=== PATIENT | male | born 1955 | race Caucasian/White ===

== ENCOUNTER 2023-08-02 23:58 | Inpatient (IN) | payer MEDICARE, SELFPAY ==
[2023-08-02 23:59] VITALS: BP 142/82; PULSE 94; RESP 18; TEMP 36.3; O2SAT 97; BMI 32.5
[2023-08-03] VITALS (16 sets, daily range): BP systolic 120–161; BP diastolic 62–94; PULSE 55–102; RESP 14–18; TEMP 36.1–37.3; O2SAT 89–96; BMI 32.1; BMI 32.0
--- NOTE | 2023-08-03 00:07 | CT_ITS ---
INDICATION: fall, head trauma EXAMINATION: CT BRAIN - CT Head or Brain W/O Contrast Injection TECHNIQUE: Multiple axial images were obtained of the head without intravenous contrast. A radiation dose optimization technique was used for this scan. IV Contrast dosage and agent: None. RADIATION DOSAGE (If Supplied By Facility): CTDIvol = ( 44.99 ) mGy, DLP = ( 846.73 ) mGycm COMPARISON: No relevant prior comparison study available FINDINGS: BRAIN PARENCHYMA: No intra- or extra-axial hemorrhage. No evidence of acute infarct. No intracranial mass or mass effect. There is preservation of the floyd/white matter interface. Posterior fossa structures are unremarkable. Patchy periventricular and deep white matter hypoattenuation is consistent with mild small vessel ischemic change. CSF SPACES: Proportional prominence of the ventricles and sulcal spaces is consistent with mild cerebral volume loss. No hydrocephalus. Basal cisterns are patent. CALVARIUM, SKULL BASE, PARANASAL SINUSES AND MASTOID AIR CELLS: Small mucous retention cysts in both maxillary sinuses. The mastoid air cells and visualized paranasal sinuses are otherwise well aerated. The calvarium is intact. No discrete lytic or blastic abnormalities. ORBITS: Both globes, extraocular muscles, optic nerves and retrobulbar fat appear unremarkable. CT/Brain/Head without Contrast IMPRESSION: No acute intracranial finding. Electronically Signed: Manoj Dominguez MD at 1:23 EST ,
--- NOTE | 2023-08-03 00:07 | CT_ITS ---
INDICATION: lower back pain after fall EXAMINATION: CT LUMBAR SPINE - CT Spine Lumbar W/O Contrast Injection TECHNIQUE: Helically acquired images were obtained of the lumbar spine. 2D reformats were reviewed. A radiation dose optimization technique was used for this scan. IV Contrast dosage and agent: None. RADIATION DOSAGE (If Supplied By Facility): CTDIvol = ( 43.08 ) mGy, DLP = ( 1273.15 ) mGycm COMPARISON: No relevant prior comparison study available FINDINGS: VERTEBRAE: No fracture or traumatic subluxation. No discrete lytic or blastic abnormality observed. Normal alignment. DISCS and SPINAL CANAL: Diffuse disc space narrowing with vacuum disc phenomenon throughout the lumbar spine. Mild facet arthropathy. Multilevel disc bulges. Moderate spinal canal narrowing of the L3-L4 level most prominently. VISUALIZED ABDOMEN: Visualized abdominal aorta is not dilated. Retroaortic left renal vein noted. There is no retroperitoneal adenopathy. CT/Spine Lumbar without Contrast IMPRESSION: No evidence of acute lumbar spinal fracture or spondylolisthesis. Mild to moderate degenerative change throughout the lumbar spine. Electronically Signed: Manoj Dominguez MD at 1:21 EST Reading Location ID and State: [address] [place] [address] Tel , Service support ,
--- NOTE | 2023-08-03 00:07 | CT_ITS ---
INDICATION: fall, neck pain EXAMINATION: CT CERVICAL SPINE - CT Spine Cervical W/O Contrast Injection TECHNIQUE: Helically acquired images were obtained of the cervical spine. 2D reformatted images were reviewed. A radiation dose optimization technique was used for this scan. IV Contrast dosage and agent: None. RADIATION DOSAGE (If Supplied By Facility): CTDIvol = ( 24.01 ) mGy, DLP = ( 508.22 ) mGycm COMPARISON: No relevant prior comparison study available FINDINGS: VERTEBRAE: No fracture or traumatic subluxation. No discrete lytic or blastic abnormality. Normal alignment. Normal craniocervical junction and cervicothoracic junction. DISCS and SPINAL CANAL: There is multilevel disc space narrowing with endplate osteophyte formation and facet arthropathy. No critical stenosis. NECK SOFT TISSUES: No prevertebral soft tissue swelling. There is no cervical adenopathy. LUNG APICES: Clear. CT/Spine Cervical without Contras IMPRESSION: No evidence of acute cervical spinal fracture or spondylolisthesis. Mild to moderate degenerative change throughout the cervical spine. Electronically Signed: Manoj Dominguez MD at 1:27 EST Reading Location ID and State: [address] [place] [address] Tel , Service support ,
--- NOTE | 2023-08-03 00:09 | EDS_ITS ---
HPI HPI - Fall History of Present Illness Chief Complaint: Fall [facility] Medical History (Updated 08/03/23 @ 00:08 by Jes Soriano) Hypertension Home Medications lisinopril 10 mg-hydrochlorothiazide 12.5 mg tablet 1 tab PO DAILY 08/03/23 [History Last Taken Unknown] Allergy/AdvReac Type Severity Reaction Status Date / Time No Known Allergies Allergy Verified 08/03/23 00:09 Social History Smoking Status: Current every day smoker tobacco type: cigarettes EXAM Physical Exam Const Vital Signs: 08/02/23 23:59 08/03/23 00:03 Temperature 97.4 F L Temperature Source Temporal Pulse Rate 94 Respiratory Rate 18 Respiratory Effort Normal Blood Pressure 142/82 H Blood Pressure Mean 102 Pulse Ox 97 Oxygen Delivery Method Room Air Room Air MDM MDM MDM Narrative Medical decision making narrative: HISTORY OF PRESENT ILLNESS: 68-year-old male presents with mechanical fall from standing. Patient notes he was walking downstairs to him to grab a ledge when he slipped and fell injuring his left hip and hitting his head. Did not lose consciousness. He does not take blood thinners. Complains of severe left hip pain. REVIEW OF SYSTEMS: Pertinent positives: Wound, left hip pain, left knee pain Pertinent negatives: Loss of consciousness, chest pain or shortness of breath PHYSICAL EXAM: Nursing triage notes reviewed, Vital signs reviewed Primary Survey Airway: Intact Breathing: Bilateral breath sounds Circulation: Palpable bilateral femorals, Palpable bilateral radial, Palpable bilateral DP and Palpable bilateral PT Disability / Spine precautions GCS Score: Eye Openin Verbal Response: 5 Motor Response: 6 Secondary Survey Constitutional: Please see MDM Head: Abrasion/laceration noted to the left eyebrow, NO jaw malocclusion, No Cephalohematoma, Eye: Pupils equal round and reactive to light, Extraocular muscles intact and No periorbital ecchymosis or stepoff, no evidence of entrapment ENT: Oropharynx clear, no lacerations, no hemotympanum, no raccoon eyes or starkey sign Cervical spine / Neck: No cervical spine bony tenderness, crepitance, or stepoff deformity Trachea midline Lungs: Clear to auscultation, No asymmetric rise and No crepitus, no flail chest Cardiac: Regular rate and rhythm and No murmurs, intact pulses in all 4 extremities. Abdomen: Soft, Nontender and No rebound Pelvis: Pelvis stable to compression : No evidence of genital injury Back: TTP over lower lumbar spine no step-offs or deformities to the CT or L- spine Neuro: At baseline, intact strength and sensation in bilateral upper and lower extremities. 2+ patellar reflexes bilaterally. Intact sensation L1-S1 dermatomal distributions. Intact 5/5 strength in hip flexion (T12-L3). Knee extension (L2-L4). Ankle dorsiflexion (L4-L5). Ankle plantar flexion (S1). Great toe extension (L5). 2+ patellar and Achilles DTRs. Extremities: TTP over the left greater trochanter, left lower extremity shortened externally rotated, left knee TTP. Psych: Normal affect Nursing triage notes reviewed, Vital signs reviewed MEDICAL DECISION MAKING: Chief Complaint: Fall, head trauma, left hip pain External records reviewed: No recent ED visits, no recent Afng imaging of the head Factors affecting care: Hypertension Social determinants of health: Current daily smoker History obtained from others: EMS Consults: Internal medicine, orthopedic surgery MDM Narrative: Patient was initially hemodynamically stable, afebrile and nontoxic-appearing. Primary secondary trauma survey concerning for intracranial normalities, lumbar spine abnormalities, left hip abnormality I considered the following differential diagnosis: Intracranial hemorrhage, cervical spine bony abnormality, breast pump normality, fractured hip, fractured femur, fracture knee IV is placed. Tetanus updated. Fluid bolus given. Morphine given for pain Zofran given for anticipated nausea. Basic labs obtained. Imaging obtained of the injured areas. ALL IMAGES (IF OBTAINED) HAVE BEEN PERSONALLY REVIEWED AND INTERPRETED BY MYSELF. X-ray of the patient's pelvis, chest and femur personally viewed myself. There is no signs of intrathoracic abnormalities on chest x-ray, pelvic x-ray/hip x- ray was consistent with a left femoral neck fracture. Urologist agreed my interpretation CT scan of the brain, cervical spine lumbar spine were negative for acute traumatic injury BMP with mild hypokalemia, ARCHANA versus CKD CBC with no leukocytosis or anemia or thrombocytopenia The synthesis of the patient's history, physical, vital signs, labs, images suggest the left more neck fracture. He was given appropriate pain control IV narcotics. I did speak with the orthopedic doctor on-call Dr. Robbins to evaluate the patient as an inpatient. Also spoke to the internal medicine doctor Dr. Guzman who agreed to admit the patient. Terms of patient's facial injury. There is no obvious laceration noted there is an abrasion and bruising to the left lateral orbit. Steri-Strips were placed over small area of abrasion the patient's left orbit. There is no ocular involvement noted. No entrapment. The patient and/or family, caregivers express understanding. The patient and/or family, caregivers agrees with the plan. Shared decision making: I will have a discussion with the patient and or visitors regarding risk/benefits of further testing or admission. They will be made aware of of the risk/benefits inherent in this decision they will be given the opportunity to voice understanding. Total critical care time today provided was at least 0 [] minutes. This excludes separately billable procedures. Critical care time (if documented) is secondary to the patient having high probability of clinically significant/life threatening deterioration in the patient's condition which required my urgent intervention. Impression: 1. Fall 2. Left femoral neck fracture 3. Closed head injury 4. Hypokalemia 5. Acute kidney injury Dispo: Admit to inpatient, [facility] full Lab Data Labs: Laboratory Results - last 24 hr 08/03/23 00:22 WBC 9.1 RBC 4.80 Hgb 14.4 Hct 43.0 MCV 89.6 MCH 30.0 MCHC 33.5 RDW Std Deviation 45.0 H RDW Coeff of Cheryl 13.8 Plt Count 183 MPV 10.0 Sodium 136 Potassium 3.3 L Chloride 105 Carbon Dioxide 22.0 Anion Gap 9 BUN 28 H Creatinine 1.95 H Estim Creat Clear Calc 37.44 Est GFR (MDRD) Af Amer 44 L Est GFR (MDRD) Non-Af 37 L BUN/Creatinine Ratio 14.4 Glucose 137 H Calcium 9.5 Radiography Diagnostic Testing: Clinical Impression(s) from Imaging Studies Brain CT 08/03/23 00:07 IMPRESSION: No acute intracranial finding. Electronically Signed: Manoj Dominguez MD at 1:23 EST , Cervical Spine CT 08/03/23 00:07 IMPRESSION: No evidence of acute cervical spinal fracture or spondylolisthesis. Mild to moderate degenerative change throughout the cervical spine. Electronically Signed: Manoj Dominguez MD at 1:27 EST , Lumbar Spine CT 08/03/23 00:07 IMPRESSION: No evidence of acute lumbar spinal fracture or spondylolisthesis. Mild to moderate degenerative change throughout the lumbar spine. Electronically Signed: Manoj Dominguez MD at 1:21 EST , Chest X-Ray 08/03/23 01:00 IMPRESSION: No acute pulmonary finding. Electronically Signed: Manoj Dominguez MD at 1:27 EST , Femur X-Ray 08/03/23 01:00 IMPRESSION: Left femoral neck fracture with varus angulation. Electronically Signed: Manoj Dominguez MD at 1:29 EST , Pelvis X-Ray 08/03/23 01:00 IMPRESSION: Left femoral neck fracture. Electronically Signed: Manoj Dominguez MD at 1:33 EST , Discharge Plan Triage Chief Complaint: Fall ED Provider: Tyrell Beltran Dx/Rx/DC Orders Prescriptions: No Action lisinopril-hydrochlorothiazide 10-12.5 mg tablet 1 tab PO DAILY Patient Comments: Take 2 tablets by mouth every morning. Primary Care Provider: Care Physician,No Primary Referrals: Care Physician,No Primary [Primary Care Provider] -
[2023-08-03] MEDS: 0.9% Normal Saline (1000mL) 1,000 ML 999 ML IV (00:24)
[2023-08-03] MEDS: Lidocaine 1% (20 ml mdv) 20 ML Vial 5 ML INFILT (00:25)
[2023-08-03] MEDS: Diphth,Pertuss(Acell),Tet Vac 0.5 ML Vial IM (00:26)
[2023-08-03] MEDS: Ondansetron 4 MG/2 ML Vial IV (00:26)
[2023-08-03] MEDS: Morphine 4 MG/ML Syringe IV (00:26)
[2023-08-03 00:32] LABS: Hemoglobin 14.4 g/dL (13.0-16.5); Mean Corp Hgb Conc 33.5 g/dL (32-36); Mean Corpuscular Volume 89.6 fL (80-94); Platelet Count 183 K/mm3 (150-450); RBC Distribution Width CV 13.8 % (11.6-14.6); White Blood Count 9.1 K/mm3 (4.4-11.0)
[2023-08-03 00:58] LABS: Anion Gap 9 (5-15); BUN 28 mg/dL (7-18); BUN/Creat Ratio 14.4 RATIO (10-20); Calcium,Total 9.5 mg/dL (8.5-10.1); Chloride 105 mmol/L (98-107); Creatinine, Serum 1.95 mg/dL (0.70-1.30); EST Glomerular Filtration Rate 37 mL/min (>60); Est Glom Filt Rate - Afr Amer 44 mL/min (>60); Estimated Creatinine Clearance 37.44 ml/min; Glucose 137 mg/dL (74-106); Potassium 3.3 mmol/L (3.5-5.1); Sodium Level 136 mmol/L (136-145)
--- NOTE | 2023-08-03 01:00 | RAD_ITS ---
INDICATION: left hip pain EXAMINATION/TECHNIQUE: X-RAY - XR Pelvis 1 or 2 Views COMPARISON: No relevant prior comparison study available FINDINGS: Left femoral neck fracture with varus angulation. The hips remain well aligned. The pelvic rim is intact. The sacroiliac joints and pubic symphysis are intact. Normal bowel gas pattern. RAD/Pelvis 1 or 2 Views IMPRESSION: Left femoral neck fracture. Electronically Signed: Manoj Dominguez MD at 1:33 EST ,
--- NOTE | 2023-08-03 01:00 | RAD_ITS ---
INDICATION: hip pain EXAMINATION/TECHNIQUE: X-RAY - LEFT XR Femur Min 2 Views 6 images COMPARISON: No relevant prior comparison study available FINDINGS: There is a left femoral neck fracture with mild varus angulation. The remainder of the femur is intact. The hip remains aligned. Appropriate alignment of the left knee. No joint effusion at the knee. Enthesophyte formation of the patella. RAD/Femur Min 2 Views IMPRESSION: Left femoral neck fracture with varus angulation. Electronically Signed: Manoj Dominguez MD at 1:29 EST ,
--- NOTE | 2023-08-03 01:00 | RAD_ITS ---
INDICATION: pre0op EXAMINATION/TECHNIQUE: X-RAY - XR Chest 1 View COMPARISON: No relevant prior comparison study available FINDINGS: LINES/DEVICES: None. LUNGS: The lungs are well expanded. No consolidation, edema or effusion. No pneumothorax. MEDIASTINUM AND CARDIOVASCULAR STRUCTURES: Cardiac silhouette not enlarged. Central airways and mediastinal contour are unremarkable. BONES AND SOFT TISSUES: No acute abnormality. RAD/Chest 1 View (Portable) IMPRESSION: No acute pulmonary finding. Electronically Signed: Manoj Dominguez MD at 1:27 EST ,
--- NOTE | 2023-08-03 02:20 | PCM.HP.STD ---
[facility] - General General Date of Admission: 08/03/23 Date of Service: 08/03/23 Chief Complaint: Left hip pain after fall. HPI Narrative LEESA CHONG, is a 68 M with a past medical history of essential hypertension, obesity; with BMI of 32.6 this admission, recent cataract surgery last week on his Left eye and history of tobacco abuse who presents to [facility] ER complaining of left hip pain after fall. Mr. Chong reports his symptoms began approximately 1 hour prior to arrival while he was walking downstairs when he suddenly lost his balance causing him to slip and fall onto his left hip. His left hip immediately became severely painful, with a shortened and externally rotated left leg with subsequent inability to ambulate. He also admits to hitting his head with significant lateral, periorbital bruising but he denies loss of consciousness associated with this fall. He denies associated fever, chills, nausea, vomiting, recent illness, recent medication changes, history of significant heart disease or previous problems with anesthesia. In the ER his x-rays were positive for evidence of a left femoral neck fracture with varus angulation complicated by laboratory evidence of hypokalemia of 3.3 mmol/L present on admission and suspected acute kidney injury with a creatinine of 1.95 mg/dL and a BUN of 28 mg/dL present on admission (with no baseline available for comparison at this time) and he was then admitted to the general medical floor for ongoing care for stay that is expected to be greater than 48 hours. [facility] Medical History Hypertension Home Medications lisinopril 10 mg-hydrochlorothiazide 12.5 mg tablet 1 tab PO DAILY htn 08/03/23 [History Last Taken Unknown] Allergy/AdvReac Type Severity Reaction Status Date / Time No Known Allergies Allergy Verified 08/03/23 00:09 Social History Smoking Status: Current every day smoker tobacco type: cigarettes ROS ROS Narrative Review of systems: Constitutional: Patient denies fever or chills. Eyes: Patient admits to bruising around his lateral left orbit but denies visual changes. ENT: Patient denies runny nose, ear pain or sore throat. Cardiovascular: Patient denies chest pain, chest pressure or palpitations. Respiratory: Patient denies shortness of breath or cough. Gastrointestinal: Patient denies abdominal pain nausea or vomiting. Genitourinary patient denies dysuria, hematuria or urinary frequency. Neurologic: Patient denies headache, dizziness or focal neurologic deficits. Allergic: Patient denies lip swelling, tongue swelling or urticaria. Integumentary: Patient denies abscess, abrasion or rash. Hematologic: Patient denies easy bleeding or easy bruisability. Psychiatric: Patient denies depression or anxiety. 14 point review systems otherwise negative except for positives noted above in HPI. Vital Signs Vital Signs Vital Signs: 08/02/23 23:59 08/03/23 00:03 Temperature 97.4 F L Temperature Source Temporal Pulse Rate 94 Respiratory Rate 18 Respiratory Effort Normal Blood Pressure 142/82 H Blood Pressure Mean 102 Pulse Ox 97 Oxygen Delivery Method Room Air Room Air Weight Weight: 226 lb 13.69 oz Body Mass Index (BMI) 32.5 Physical Exam Const alert, oriented x3, average body habitus and healthy appearing Constitutional Narrative: Mild distress noted. General Appearance: cooperative HEENT normocephalic, head/scalp atraumatic, hearing grossly normal bilaterally and moist oral mucous membranes Eyes PERRL, EOMs intact bilaterally and conjunctivae normal Neck no lymphadenopathy, supple and no JVD Resp normal respiratory effort, no retractions, no use of accessory muscles and clear to auscultation bilaterally Cardio regular rate and regular rhythm GI normal to inspection, nondistended, normoactive bowel sounds, soft to palpation, non-tender and non-distended Extremity Extremity Narrative: Left lower extremity shortened externally rotated with no signs of neurovascular compromise. Good 2+ pulses throughout. Good capillary refill. Skin Skin Narrative: Patient has no evidence of rash at this time. Neuro oriented x3, CN's II-XII intact bilaterally, moves all extremities and no focal motor deficits Sensorium / Orientation: awake, oriented to person, oriented to place and oriented to time Speech: speech normal Psych affect normal Results Medical Records Data Attestation: I reviewed the patient's medical records Lab / Micro Data Attestation: I reviewed the patient's lab results. 08/03/23 00:22 08/03/23 00:22 Labs: Laboratory Results - last 24 hr 08/03/23 00:22: WBC 9.1, RBC 4.80, Hgb 14.4, Hct 43.0, MCV 89.6, MCH 30.0, MCHC 33.5, RDW Std Deviation 45.0 H, RDW Coeff of Cheryl 13.8, Plt Count 183, MPV 10.0, Sodium 136, Potassium 3.3 L, Chloride 105, Carbon Dioxide 22.0, Anion Gap 9, BUN 28 H, Creatinine 1.95 H, Estim Creat Clear Calc 37.44, Est GFR (MDRD) Af Amer 44 L, Est GFR (MDRD) Non-Af 37 L, BUN/Creatinine Ratio 14.4, Glucose 137 H, Calcium 9.5 Imagaing Radiology Impression Brain CT 08/03/23 00:07 IMPRESSION: No acute intracranial finding. Electronically Signed: Manoj Dominguez MD at 1:23 EST , Cervical Spine CT 08/03/23 00:07 IMPRESSION: No evidence of acute cervical spinal fracture or spondylolisthesis. Mild to moderate degenerative change throughout the cervical spine. Electronically Signed: Manoj Dominguez MD at 1:27 EST , Lumbar Spine CT 08/03/23 00:07 IMPRESSION: No evidence of acute lumbar spinal fracture or spondylolisthesis. Mild to moderate degenerative change throughout the lumbar spine. Electronically Signed: Manoj Dominguez MD at 1:21 EST , Chest X-Ray 08/03/23 01:00 IMPRESSION: No acute pulmonary finding. Electronically Signed: Manoj Dominguez MD at 1:27 EST , Femur X-Ray 08/03/23 01:00 IMPRESSION: Left femoral neck fracture with varus angulation. Electronically Signed: Manoj Dominguez MD at 1:29 EST , Pelvis X-Ray 08/03/23 01:00 IMPRESSION: Left femoral neck fracture. Electronically Signed: Manoj Dominguez MD at 1:33 EST , Assessment & Plan Assessment/Plan (1) Fracture of femoral neck, left: QUALIFIERS: Encounter type: initial encounter Fracture type: closed Qualified Code(s): S72.002A - Fracture of unspecified part of neck of left femur, initial encounter for closed fracture (2) Hypokalemia: (3) Essential hypertension: (4) ARCHANA (acute kidney injury): (5) Obesity (BMI 30.0-34.9): PLAN: Plan 1. Left femoral neck fracture after mechanical fall - Admit to general medical floor. Apply 5 pounds of Messina's traction with patient to be on bedrest until ORIF can be completed. Give Tylenol as needed for mild to moderate level 1-5 out of 10 pain or fever. Give morphine IV as needed for severe 6-10 out of 10 pain. Finally, we will consult the orthopedic surgeon on-call to see this patient on rounds in the a.m. for further recommendations with help appreciated in advance. 2. Hypokalemia of 3.3 mmol/L present on admission complicating #1 - Give supplemental potassium chloride and then recheck BMP in the a.m. to ensure improvement. 3. Suspected acute kidney injury with elevated serum creatinine of 1.95 mg/dL and BUN of 28 mg/dL present on admission compounding #1 & #2 - Give volume resuscitation and recheck BMP in the a.m. to confirm suspicion 4. Essential hypertension - Hold lisinopril/HCTZ for now in light of #3. Give IV hydralazine as needed for systolic blood pressure greater than or equal to 160 mmHg. 5. Tobacco abuse - Tobacco cessation will be strongly encouraged with nicotine patch offered to control cravings. 6. Obesity; with BMI of 32.6 this admission - Weight loss will be recommended. Check TSH. 7. Recent surgery remove cataract from left eye last week - Stable. 8. DVT prophylaxis - Place RLE SCD and avoid blood thinners preoperatively in cases of traumatic fracture due to increased risk of bleeding complications. Orthopedic team to decide upon postoperative DVT prophylaxis. Total time: Approximately 55 minutes. Charges/Coding Visit Charges Inpatient E&M: 35831 Init Hosp L2
[2023-08-03] MEDS: HYDROmorphone 0.5 MG/0.5 ML SYRINGE IV (02:24)
--- NOTE | 2023-08-03 02:49 | EKG12_ITS ---
Test Reason : AM EKG Blood Pressure : / mmHG Vent. Rate : 091 BPM Atrial Rate : 091 BPM P-R Int : 144 ms QRS Dur : 090 ms QT Int : 354 ms P-R-T Axes : 043 048 075 degrees QTc Int : 435 ms Normal sinus rhythm Normal ECG When compared with ECG of 08-SEP-2010 13:40, Vent. rate has increased BY 30 BPM T wave amplitude has decreased in Anterolateral leads Confirmed by RAUL RIVAS, SHELBI ([id number]), international editorial producer RAYA NORIEGA ([id number]) on 08/15/2023 10:11:26 AM Referred By: Adis Zazueta Confirmed By:SHELBI CARTER MD
--- OUTSIDE RECORDS SUMMARY | 2023-08-03 02:51 | XMS RPT_ITS | CCD ---
Author Name Unknown Address [address] [facility] [address] [place] [address] Organization [facility] Care Team Providers Care Airfield Engineer Officer Name Role Phone Unavailable Primary Care Provider UnavailShahana Murphy MD Primary Care Provider HOLLIE GALINDO Attending Unavailable SHAHANA BARBER Primary Care Unavailable HOLLIE GALINDO Attending Unavailable HOLLIE GALINDO Attending Unavailable Medications Current Medications Medication Drug Class(es) Dates Sig (Normalized) Sig (Original) hydroCHLOROthiazide 25 mg oral tablet (1 source) Thiazide Diuretic Start: 3 End: 4 take 1 tablet by mouth once daily hydroCHLOROthiazide 25 mg tablet Take 1 tablet by mouth once daily. 30 tablet 2 06/05/2023 09/03/2023 Active Completed/Discontinued Medications Medication Drug Class(es) Dates Sig (Normalized) Sig (Original) Blood Pressure Monitor (7 sources) Start: 05-03-2023 Blood Pressure Monitor Indications: Hypertension, essential 1 Each once daily. 1 Each 0 05/03/2023 Active Problems Problem Classification Problem Date Documented Da te Episodic/Chronic Cataract (1 source) Bilateral cataracts; Translations: [Unspecified cataract] 06-05-2023 Chronic Disorders of lipid metabolism (2 sources) Hypertriglyceridemia; Translations: [Pure hyperglyceridemia] 05-08-2023 Chronic Essential hypertension (5 sources) Essential hypertension; Translations: [Essential (primary) hypertension] 05-03-2023 Chronic Other screening for suspected conditions (not mental disorders or infectious disease) (3 sources) Serum creatinine raised; Translations: [Other specified abnormal findings of blood chemistry] 05-08-2023 Episodic Results Test Name Value Interpretation Reference Range Facil ity Vital Signs Date Time Vital Sign Value Performing Clinician Faci lity 06-05-2023 14:56-0400 Body height 177.8 cm Hollie Ralf SHIRT SORTER.CN P Work Phone: [facility] 06-05-2023 14:56-0400 Body weight 102.51 kg Hollie Ralf SHIRT SORTER.CN P Work Phone: [facility] 06-05-2023 14:56-0400 Diastolic blood pressure 80 mm[Hg] Hollie Ralf SHIRT SORTER.INSPECTOR CHIEF Work Phone: [facility] 06-05-2023 14:56-0400 Heart rate 94 /min Hollie Ralf SHIRT SORTER.CN P Work Phone: [facility] 06-05-2023 14:56-0400 Systolic blood pressure 123 mm[Hg] Hollie Ralf SHIRT SORTER.INSPECTOR CHIEF Work Phone: [facility] 05-08-2023 14:33-0400 Diastolic blood pressure 100 mm[Hg] Hollie Ralf SHIRT SORTER.INSPECTOR CHIEF Work Phone: [facility] 05-08-2023 14:33-0400 Systolic blood pressure 146 mm[Hg] Hollie Ralf SHIRT SORTER.INSPECTOR CHIEF Work Phone: [facility] 05-08-2023 14:21-0400 Body height 177.8 cm Hollie Ralf SHIRT SORTER.CN P Work Phone: [facility] 05-08-2023 14:21-0400 Body weight 102.51 kg Hollie Ralf SHIRT SORTER.CN P Work Phone: [facility] 05-08-2023 14:21-0400 Heart rate 76 /min Hollie Ralf SHIRT SORTER.CN P Work Phone: [facility] Encounters Encounter Date Encounter Type Care Provider Facility Start: 07-04-2023 Telephone encounter Shahana Barber MD Work Phone: Family Practice Procedures Date Procedure Procedure Detail Performing Clinician Start: 05-01-2023 Lipid 1996 panel - S stacia or Plasma Hollie Ralf SHIRT SORTER.INSPECTOR CHIEF Work Phone: Plan of Treatment Date Care Activity Detail Author Start: 05-01-2028 Lipid 1996 panel - Serum or Plasma Lipid Screening [facility] Start: 05-01-2028 Prostate Cancer Screening Discussion Prostate Cancer Screening Discussion [facility] Start: 05-01-2026 Diabetes Screening Diabetes Screenin g [facility] Start: 06-05-2024 Annual PCP Team Life Trainer bryn Disease Visit Annual PCP Team Chronic Disease Visit [facility] Start: 05-08-2024 Annual PCP Team Life Trainer bryn Disease Visit Annual PCP Team Chronic Disease Visit [facility] Start: 06-05-2023 End: 09-04-2023 Basic metabolic 2000 panel - Serum or Plasma BASIC METABOLIC PNL Lab Routine Hypertension, essential Expected: 06/05/2023, Expires: 09/04/2023 [facility] Work Phone: Payers Date Payer Category Payer Medicare UHC AARP MEDICAR E [facility] AAR MEDICARE HMO [id number] 2022-Present [phone] [address] [address] [place] [address] O [id number] 2022 Medicare [id number] Social History Date Type Detail Facility Start: 05-01-[address] [facility] Work Phone: History of tobacco use Cigarette Smoker C [facility] Work Phone: Start: 05-01-2023 End: 06-05-2023 Cigarettes smoked current (pack per day) - Reported 0.5 [facility] Work Phone: Start: 05-01-2023 Tobacco use and exposure Smokeless tobacco non-user [facility] Work Phone: Start: 05-01-2023 End: 05-08-2023 Alcohol intake Lifetime non-drinker (finding) [facility] Start: 05-01-2023 End: 06-05-2023 Tobacco use panel [facility] Work Phone: National Score (1-10 0), lower number is lower risk 66 [facility] Work Phone: Start: 1955 Sex Assigned At Not on file C [facility] Clinical Notes 05-01-2023 to 07-04-2023 Telephone Encounter - Blake Loera - 07/04/2023 8:27 AM ESTTelephone Encounter - Kim Ross - 06/27/2023 1:46 PM Hollie Lucio APRN.TARA - 06/05/2023 3:11 PM EDT Note Date & Type Note Facility 07-04-2023 Miscellaneous Notes Received pre op clearance form from [facility]. Placed in provider's inbox for review. [facility] to [place] fax [phone] documented in this encounter [facility] 06-27-2023 Miscellaneous Notes Opened in error. Kim Mcclelland documented in this encounter [facility] 06-05-2023 Note HNO ID: [id number] Author: Hollie Galindo APRN.TARA Service: ? Author Type: Nurse Practitioner Type: Progress Notes Filed: 06/05/2023 4:30 PM Note Text: This note was created using Domeeter. Subjective Myles Chong is a 68 year old male. Myles is here today for a follow-up since starting BP medications and pre-operative clearance for cataract surgery. He forgot the form for provider to complete for the eye doctor. He recently stopped smoking since last appointment because the provider told him to . Is taking lisinopril and HCTZ, states he has a slight dry cough since starting the medication but it's not bothersome enough to change it. Have you or anyone in your family ever had a problem with anesthesia?No Could you be ?No Do you have a cough/bronchitis/sinusitis? No Have you had or have a asthma/hayfever/pneumonia?No Do you have a cold?No Have you had any difficulties breathing/SOB or emphysema?No Do you have any bleeding tendencies?No Have you had anemia or any other blood disease or blood transfusion?No Do you have a heart murmur or irregular heart beat?No Have you ever had a heart attack?No Have you ever had angina or pain in your chest? No Do you have any pain? No Have you ever had high blood pressure/low blood pressure?Yes, controlled Do you have any contagious disease or infection/HIV?No Do you have diabetes/low blood sugar?No Have you ever had thyroid problems?No Have you ever had a stroke?No Have you ever had epilepsy or had seizures?No Have you ever had kidney problems?Yes, monitoring Have you ever had liver problems/jaundice/hepatitis?No Have you ever had any gallbladder disease?No Are there any uatsdin or cultural practices that may alter your care or education?No Do you drink alcoholic beverages? If so how much?No Do you smoke, or did you ever? If so, how much? For how long? No Do you use social drugs?No ADVANCED DIRECTIVES: Educated/Pamphlet Given:Yes Instructed to bring copy:Yes Do you have Health Care Surrogate?Yes, son Living will?(if yes, obtain copy and place on chart)No, gave copy of paperwork Review of Systems Constitutional: Negative for chills, fatigue and fever. HENT: Negative for congestion, ear pain, postnasal drip and sore throat. Eyes: Positive for visual disturbance. Cataracts Respiratory: Positive for cough. Negative for chest tightness, shortness of breath and wheezing. Cardiovascular: Negative for chest pain and palpitations. Gastrointestinal: Negative for abdominal pain. Genitourinary: Negative for difficulty urinating, frequency and urgency. Musculoskeletal: Negative for arthralgias and myalgias. Skin: Negative for color change. Allergic/Immunologic: Negative for immunocompromised state. Neurological: Negative for dizziness and headaches. Hematological: Negative for adenopathy. Does not bruise/bleed easily. Psychiatric/Behavioral: Negative for dysphoric mood. The patient is not nervous/anxious. All other systems reviewed and are negative. PAST MEDICAL HISTORY Diagnosis Date Kidney stone PAST SURGICAL HISTORY Procedure Laterality Date LITHOTRIPSY XTRCORP SHOCK WAVE ALLERGIES Patient has no allergy information on record. MEDICATIONS Blood Pressure Monitor 1 Each once daily. (Patient taking differently: 1 Each once daily. Not in yet) lisinopril (ZESTRIL) 20 mg tablet Take 1 tablet by mouth once daily. hydroCHLOROthiazide 25 mg tablet Take 1 tablet by mouth once daily. Miscellaneous Medical Supply (BLOOD PRESSURE CUFF) 1 Each once daily. (Patient not taking: Reported on 06/05/2023) FAMILY HISTORY Problem Relation Age of Onset Hypertension Mother No Known Problems Father No Known Problems Sister Arthritis Brother No Known Problems Brother No Known Problems Maternal Grandmother No Known Problems Maternal Grandfather No Known Problems Paternal Grandmother No Known Problems Paternal Grandfather Social History Tobacco Use Smoking status: Every Day Packs/day: 0.50 Years: 33.00 Additional pack years: 0.00 Total pack years: 16.50 Types: Cigarettes Smokeless tobacco: Never Substance Use Topics Alcohol use: Never Drug use: Never Objective BP 123/80 Pulse 94 Ht 177.8 cm (5' 10 ) Wt 102.5 kg (226 lb) BMI 32.43 kg/m? Physical Exam Constitutional: Appearance: Normal appearance. He is not ill-appearing. Eyes: Conjunctiva/sclera: Conjunctivae normal. Cardiovascular: Rate and Rhythm: Normal rate and regular rhythm. Heart sounds: Normal heart sounds. Pulmonary: Effort: Pulmonary effort is normal. Breath sounds: Normal breath sounds. Musculoskeletal: Right lower leg: No edema. Left lower leg: No edema. Neurological: General: No focal deficit present. Mental Status: He is alert and oriented to person, place, and time. Mental status is at baseline. Psychiatric: Mood and Affect: Mood normal. Behavior: Behavior normal. Thought C (more content not included)... [facility] 06-05-2023 History of Present illness Narrative This note was created using Anatole. Subjective Myles Chong is a 68 year old male. Myles is here today for a follow-up since starting BP medications and pre-operative clearance for cataract surgery. He forgot the form for provider to complete for the eye doctor. He recently stopped smoking since last appointment because the provider told him to . Is taking lisinopril and HCTZ, states he has a slight dry cough since starting the medication but it's not bothersome enough to change it. Have you or anyone in your family ever had a problem with anesthesia?No Could you be ?No Do you have a cough/bronchitis/sinusitis? No Have you had or have a asthma/hayfever/pneumonia?No Do you have a cold?No Have you had any difficulties breathing/SOB or emphysema?No Do you have any bleeding tendencies?No Have you had anemia or any other blood disease or blood transfusion?No Do you have a heart murmur or irregular heart beat?No Have you ever had a heart attack?No Have you ever had angina or pain in your chest? No Do you have any pain? No Have you ever had high blood pressure/low blood pressure?Yes, controlled Do you have any contagious disease or infection/HIV?No Do you have diabetes/low blood sugar?No Have you ever had thyroid problems?No Have you ever had a stroke?No Have you ever had epilepsy or had seizures?No Have you ever had kidney problems?Yes, monitoring Have you ever had liver problems/jaundice/hepatitis?No Have you ever had any gallbladder disease?No Are there any uatsdin or cultural practices that may alter your care or education?No Do you drink alcoholic beverages? If so how much?No Do you smoke, or did you ever? If so, how much? For how long? No Do you use social drugs?No ADVANCED DIRECTIVES: Educated/Pamphlet Given:Yes Instructed to bring copy:Yes Do you have Health Care Surrogate?Yes, son Living will?(if yes, obtain copy and place on chart)No, gave copy of paperwork Review of Systems Constitutional: Negative for chills, fatigue and fever. HENT: Negative for congestion, ear pain, postnasal drip and sore throat. Eyes: Positive for visual disturbance. Cataracts Respiratory: Positive for cough. Negative for chest tightness, shortness of breath and wheezing. Cardiovascular: Negative for chest pain and palpitations. Gastrointestinal: Negative for abdominal pain. Genitourinary: Negative for difficulty urinating, frequency and urgency. Musculoskeletal: Negative for arthralgias and myalgias. Skin: Negative for color change. Allergic/Immunologic: Negative for immunocompromised state. Neurological: Negative for dizziness and headaches. Hematological: Negative for adenopathy. Does not bruise/bleed easily. Psychiatric/Behavioral: Negative for dysphoric mood. The patient is not nervous/anxious. All other systems reviewed and are negative. PAST MEDICAL HISTORY Diagnosis Date Kidney stone PAST SURGICAL HISTORY Procedure Laterality Date LITHOTRIPSY XTRCORP SHOCK WAVE ALLERGIES Patient has no allergy information on record. MEDICATIONS Blood Pressure Monitor 1 Each once daily. (Patient taking differently: 1 Each once daily. Not in yet) lisinopril (ZESTRIL) 20 mg tablet Take 1 tablet by mouth once daily. hydroCHLOROthiazide 25 mg tablet Take 1 tablet by mouth once daily. Miscellaneous Medical Supply (BLOOD PRESSURE CUFF) 1 Each once daily. (Patient not taking: Reported on 06/05/2023) FAMILY HISTORY Problem Relation Age of Onset Hypertension Mother No Known Problems Father No Known Problems Sister Arthritis Brother No Known Problems Brother No Known Problems Maternal Grandmother No Known Problems Maternal Grandfather No Known Problems Paternal Grandmother No Known Problems Paternal Grandfather Social History Tobacco Use Smoking status: Every Day Packs/day: 0.50 Years: 33.00 Additional pack years: 0.00 Total pack years: 16.50 Types: Cigarettes Smokeless tobacco: Never Substance Use Topics Alcohol use: Never Drug use: Never Objective BP 123/80 Pulse 94 Ht 177.8 cm (5' 10 ) Wt 102.5 kg (226 lb) BMI 32.43 kg/m Physical Exam Constitutional: Appearance: Normal appearance. He is not ill-appearing. Eyes: Conjunctiva/sclera: Conjunctivae normal. Cardiovascular: Rate and Rhythm: Normal rate and regular rhythm. Heart sounds: Normal heart sounds. Pulmonary: Effort: Pulmonary effort is normal. Breath sounds: Normal breath sounds. Musculoskeletal: Right lower leg: No edema. Left lower leg: No edema. Neurological: General: No focal deficit present. Mental Status: He is alert and oriented to person, place, and time. Mental status is at baseline. Psychiatric: Mood and Affect: Mood normal. Behavior: Behavior normal. Thought Content: Thought content normal. Judgment: Judgment normal. Assessment and Plan 1. Pre-op evaluation Cleared pending review of form, patient will fax. 2. Hypertension, essential Well controlled, continue current medications. - BASIC METABOLIC PNL; Future 3. Cataract of both eyes, unspecified cataract type 4. Elevated serum creatinine Recommend to repeat BMP and fasting lipid panel in the next couple weeks at the lab. 5. Hypertriglyceridemia - LIPID PANEL BASIC; Future Schedule appt with Dr. Barber to establish care. JAYME Mehta, RN (FIELD ENGINEER Student) TEACHING PROVIDER (Physician/PA/SHIRT SORTER) NOTE OF PERSONAL INVOLVEMENT IN CARE: I have personally seen and examined the patient and performed the medical decision-making components. I have reviewed the Advanced Practice Registered Nurse (SHIRT SORTER) Student's documentation and verified the findings in the note as written. Any additions or changes are noted in bold/italics. Signature: Hollie Galindo Date: 06/05/2023 Time: 4:25 PM documented in this encounter [facility] 06-01-2023 Miscellaneous Notes Pharmacy verified in [facility] Patient has been identified by name and date of : Yes Patient aware RX will be sent to pharmacy. No need to notify patient. Patient phones for refill(s): Requested Prescriptions Pending Prescriptions Disp Refills lisinopril-hydroCHLOROthiazide (ZESTORETIC) 10-12.5 mg per tablet 30 tablet 0 Sig: Take 2 tablets by mouth every morning. Date of last office visit : 05/08/2023 Date of next office visit : 06/05/2023 Last 2 Encounter Wt Readings: Date: Wt: 05/08/2023 102.5 kg (226 lb) 05/01/2023 103.9 kg (229 lb) Blood Pressure: BUN (mg/dL) Date Value 05/01/2023 12 Creatinine (mg/dL) Date Value 05/01/2023 1.37 Sodium (mmol/L) Date Value 05/01/2023 138 Potassium (mmol/L) Date Value 05/01/2023 4.2 Last 1 Encounter BP Readings: Date: BP: 05/08/2023 146/100[manual[ Please advise. Blake Confer Patient is out of the bp meds. Pharmacy verified in [facility] Patient has been identified by name and date of : Yes Patient aware RX will be sent to pharmacy. No need to notify patient. Patient phones for refill(s): Requested Prescriptions Pending Prescriptions Disp Refills lisinopril-hydroCHLOROthiazide (ZESTORETIC) 10-12.5 mg per tablet 30 tablet 0 Sig: Take 2 tablets by mouth every morning. Date of last office visit : 05/08/2023 Date of next office visit : 06/05/2023 Last 2 Encounter Wt Readings: Date: Wt: 05/08/2023 102.5 kg (226 lb) 05/01/2023 103.9 kg (229 lb) Not applicable Please advise. Shilpa Mcclelland documented in this encounter [facility] 05-08-2023 Note HNO ID: [id number] Author: Hollie Galindo APRN.INSPECTOR CHIEF Service: ? Author Type: Nurse Practitioner Type: Progress Notes Filed: 05/08/2023 3:01 PM Note Text: This note was created using Anatole. Subjective Myles Chong is a 67 year old male. Patient here to follow-up on HTN. Saw this provider last week, started on lisinopril-HCTZ. Is taking medication daily as prescribed, wasn't able to get blood pressure cuff yet. Denies any side effects from medication. Discussed recent lab results with elevated PSA, creatinine, and cholesterol. Hasn't cut down on smoking yet. The 10-year ASCVD risk score (Cosme DK, et al., 2019) is: 31.2% Values used to calculate the score: Age: 67 years Sex: Male Is Non- : No Diabetic: No Tobacco smoker: Yes Systolic Blood Pressure: 169 mmHg Is BP treated: No HDL Cholesterol: 29 mg/dL Total Cholesterol: 141 mg/dL Review of Systems Constitutional: Negative for appetite change, fatigue and fever. Respiratory: Negative for cough, shortness of breath and wheezing. Cardiovascular: Negative for chest pain, palpitations and leg swelling. Gastrointestinal: Negative for abdominal pain. PAST MEDICAL HISTORY Diagnosis Date Kidney stone PAST SURGICAL HISTORY Procedure Laterality Date LITHOTRIPSY XTRCORP SHOCK WAVE ALLERGIES Patient has no allergy information on record. MEDICATIONS lisinopril-hydroCHLOROthiazide (ZESTORETIC) 10-12.5 mg per tablet Take 2 tablets by mouth every morning. Blood Pressure Monitor 1 Each once daily. (Patient taking differently: 1 Each once daily. Not in yet) Miscellaneous Medical Supply (BLOOD PRESSURE CUFF) 1 Each once daily. FAMILY HISTORY Problem Relation Age of Onset Hypertension Mother No Known Problems Father No Known Problems Sister Arthritis Brother No Known Problems Brother No Known Problems Maternal Grandmother No Known Problems Maternal Grandfather No Known Problems Paternal Grandmother No Known Problems Paternal Grandfather Social History Tobacco Use Smoking status: Every Day Packs/day: 0.50 Years: 33.00 Additional pack years: 0.00 Total pack years: 16.50 Types: Cigarettes Smokeless tobacco: Never Substance Use Topics Alcohol use: Never Drug use: Never Objective BP 169/97 Pulse 76 Ht 177.8 cm (5' 10 ) Wt 102.5 kg (226 lb) BMI 32.43 kg/m? BP 146/100 (BP Site: Right Arm, BP Position: Sitting, BP Cuff Size: Large Adult) Pulse 76 Ht 177.8 cm (5' 10 ) Wt 102.5 kg (226 lb) BMI 32.43 kg/m? Physical Exam Vitals and nursing note reviewed. Constitutional: Appearance: He is well-developed. He is not ill-appearing. Cardiovascular: Rate and Rhythm: Normal rate and regular rhythm. Heart sounds: Normal heart sounds. Pulmonary: Effort: Pulmonary effort is normal. Breath sounds: Normal breath sounds. Skin: General: Skin is warm and dry. Neurological: Mental Status: He is alert and oriented to person, place, and time. Assessment and Plan 1. Hypertension, essential Uncontrolled. Increase medication, take 2 at one time daily. Get BP cuff and start checking twice daily, bring list of readings to follow-up in 1 week. - lisinopril-hydroCHLOROthiazide (ZESTORETIC) 10-12.5 mg per tablet; Take 2 tablets by mouth every morning. Dispense: 30 tablet; Refill: 0 2. Elevated serum creatinine Discussed likely related to longstanding HTN, will continue to monitor. 3. Elevated PSA Patient is asymptomatic, will continue to monitor. 4. Hypertriglyceridemia Recent labs were non-fasting, however patient is still at elevated risk due to blood pressure, age, and sex. Recommend to get blood pressure under control and quit smoking, will re-evaluate at future appointment. Hollie Galindo APRN.[facility] 05-08-2023 History of Present illness Narrative This note was created using NoteWriter. Subjective Myles Chong is a 67 year old male. Patient here to follow-up on HTN. Saw this provider last week, started on lisinopril-HCTZ. Is taking medication daily as prescribed, wasn't able to get blood pressure cuff yet. Denies any side effects from medication. Discussed recent lab results with elevated PSA, creatinine, and cholesterol. Hasn't cut down on smoking yet. The 10-year ASCVD risk score (Cosme DASILVA, et al., 2019) is: 31.2% Values used to calculate the score: Age: 67 years Sex: Male Is Non- : No Diabetic: No Tobacco smoker: Yes Systolic Blood Pressure: 169 mmHg Is BP treated: No HDL Cholesterol: 29 mg/dL Total Cholesterol: 141 mg/dL Review of Systems Constitutional: Negative for appetite change, fatigue and fever. Respiratory: Negative for cough, shortness of breath and wheezing. Cardiovascular: Negative for chest pain, palpitations and leg swelling. Gastrointestinal: Negative for abdominal pain. PAST MEDICAL HISTORY Diagnosis Date Kidney stone PAST SURGICAL HISTORY Procedure Laterality Date LITHOTRIPSY XTRCORP SHOCK WAVE ALLERGIES Patient has no allergy information on record. MEDICATIONS lisinopril-hydroCHLOROthiazide (ZESTORETIC) 10-12.5 mg per tablet Take 2 tablets by mouth every morning. Blood Pressure Monitor 1 Each once daily. (Patient taking differently: 1 Each once daily. Not in yet) Miscellaneous Medical Supply (BLOOD PRESSURE CUFF) 1 Each once daily. FAMILY HISTORY Problem Relation Age of Onset Hypertension Mother No Known Problems Father No Known Problems Sister Arthritis Brother No Known Problems Brother No Known Problems Maternal Grandmother No Known Problems Maternal Grandfather No Known Problems Paternal Grandmother No Known Problems Paternal Grandfather Social History Tobacco Use Smoking status: Every Day Packs/day: 0.50 Years: 33.00 Additional pack years: 0.00 Total pack years: 16.50 Types: Cigarettes Smokeless tobacco: Never Substance Use Topics Alcohol use: Never Drug use: Never Objective BP 169/97 Pulse 76 Ht 177.8 cm (5' 10 ) Wt 102.5 kg (226 lb) BMI 32.43 kg/m BP 146/100 (BP Site: Right Arm, BP Position: Sitting, BP Cuff Size: Large Adult) Pulse 76 Ht 177.8 cm (5' 10 ) Wt 102.5 kg (226 lb) BMI 32.43 kg/m Physical Exam Vitals and nursing note reviewed. Constitutional: Appearance: He is well-developed. He is not ill-appearing. Cardiovascular: Rate and Rhythm: Normal rate and regular rhythm. Heart sounds: Normal heart sounds. Pulmonary: Effort: Pulmonary effort is normal. Breath sounds: Normal breath sounds. Skin: General: Skin is warm and dry. Neurological: Mental Status: He is alert and oriented to person, place, and time. Assessment and Plan 1. Hypertension, essential Uncontrolled. Increase medication, take 2 at one time daily. Get BP cuff and start checking twice daily, bring list of readings to follow-up in 1 week. - lisinopril-hydroCHLOROthiazide (ZESTORETIC) 10-12.5 mg per tablet; Take 2 tablets by mouth every morning. Dispense: 30 tablet; Refill: 0 2. Elevated serum creatinine Discussed likely related to longstanding HTN, will continue to monitor. 3. Elevated PSA Patient is asymptomatic, will continue to monitor. 4. Hypertriglyceridemia Recent labs were non-fasting, however patient is still at elevated risk due to blood pressure, age, and sex. Recommend to get blood pressure under control and quit smoking, will re-evaluate at future appointment. Hollie Galindo APRN.TARA documented in this encounter [facility] 05-03-2023 Miscellaneous Notes Rx re-sent. Hollie Galindo APRN.TARA Requested Prescriptions Signed Prescriptions Disp Refills Blood Pressure Monitor 1 Each 0 Si Each once daily. Authorizing Provider: HOLLIE GALINDO Pharmacy Information Pharmacy Address Telephone [facility] [phone] [place], [place] [id number] Catarizm calling in regard to request for blood pressure cuff. The prescription needs to state blood pressure monitor. Any questions, please call [phone] Ext 3 documented in this encounter [facility] 05-03-2023 Miscellaneous Notes Called and informed pt. Rx re-sent, let patient know. Hollie Galindo APRN.INSPECTOR CHIEF Selina from [facility] [employer] [facility] calling. They can not accept script for blood pressure cuff that was sent 05/01. New script needs written for Blood pressure Monitor- needs ICD 10 code with reason for monitor as well. Can fax to [phone]. Selina # [phone] ext [phone] Donna Echols RN documented in this encounter [facility] 05-02-2023 Miscellaneous Notes Pharmacy calling requesting to speak to nurse. Transferred to nurse line. documented in this encounter [facility] 05-01-2023 Note HNO ID: [id number] Author: Hollie Galindo APRN.TARA Service: ? Author Type: Nurse Practitioner Type: Progress Notes Filed: 05/01/2023 3:32 PM Note Text: This note was created using [employer]. Subjective Myles Chong is a 67 year old male. Patient here to establish care and needs clearance to have cataract surgery on 05/03. Hasn't seen a PCP in at least 15 years. Here with [id number] who is driving him because he can't see right now to drive due to his cataracts. Reviewed PMFSH. Has smoked for 33 years, 1/2 PPD. Has tried to quit, but only makes it about 4 days cold turkey, hasn't tried any medications for this. The history is provided by the patient. Review of Systems Constitutional: Negative for unexpected weight change. Eyes: Positive for visual disturbance. Respiratory: Negative for cough, shortness of breath and wheezing. Cardiovascular: Negative for chest pain, palpitations and leg swelling. Gastrointestinal: Negative for abdominal pain, blood in stool, constipation, diarrhea, nausea and vomiting. Neurological: Positive for headaches. Negative for dizziness. PAST MEDICAL HISTORY Diagnosis Date Kidney stone PAST SURGICAL HISTORY Procedure Laterality Date LITHOTRIPSY XTRCORP SHOCK WAVE ALLERGIES Patient has no allergy information on record. MEDICATIONS lisinopril-hydroCHLOROthiazide (ZESTORETIC) 10-12.5 mg per tablet Take 1 tablet by mouth every morning. Miscellaneous Medical Supply (BLOOD PRESSURE CUFF) 1 Each once daily. FAMILY HISTORY Problem Relation Age of Onset Hypertension Mother No Known Problems Father No Known Problems Sister Arthritis Brother No Known Problems Brother No Known Problems Maternal Grandmother No Known Problems Maternal Grandfather No Known Problems Paternal Grandmother No Known Problems Paternal Grandfather Social History Tobacco Use Smoking status: Every Day Packs/day: 0.50 Years: 33.00 Additional pack years: 0.00 Total pack years: 16.50 Types: Cigarettes Smokeless tobacco: Never Substance Use Topics Alcohol use: Never Drug use: Never Objective BP 189/106 Pulse 83 Wt 103.9 kg (229 lb) BP 189/106 Pulse 83 Ht 177.8 cm (5' 10 ) Wt 103.9 kg (229 lb) BMI 32.86 kg/m? Physical Exam Constitutional: Appearance: Normal appearance. He is obese. He is not ill-appearing. HENT: Head: Normocephalic and atraumatic. Right Ear: There is impacted cerumen. Left Ear: There is impacted cerumen. Mouth/Throat: Mouth: Mucous membranes are moist. Pharynx: Oropharynx is clear. Eyes: Conjunctiva/sclera: Conjunctivae normal. Cardiovascular: Rate and Rhythm: Normal rate and regular rhythm. Pulmonary: Effort: Pulmonary effort is normal. Breath sounds: Normal breath sounds. Abdominal: General: Abdomen is flat. Bowel sounds are normal. Palpations: Abdomen is soft. Musculoskeletal: Right lower leg: No edema. Left lower leg: No edema. Skin: General: Skin is warm and dry. Neurological: General: No focal deficit present. Mental Status: He is alert and oriented to person, place, and time. Mental status is at baseline. Gait: Gait normal. Psychiatric: Mood and Affect: Mood normal. Assessment and Plan 1. Hypertension, essential - ICD9: 401.9, ICD10: I10 (primary diagnosis) - New diagnosis - Start hydrochlorothiazide, lisinopril - Newly diagnosed hypertension workup ordered: CBC, BMP (fasting), TSH, Lipid profile, and ECG - Recommend home blood pressure monitoring, to bring results to next visit - Encouraged sodium restriction, DASH or Mediterranean diet - Recommend regular aerobic exercise - Discussed need for and benefit of weight loss. BMI 32.86 kg/(m2) - Smoking cessation encouraged; discussed risks to health and quitting strategies. Patient is not ready to quit - Reviewed risks of hypertension and principles of treatment - Follow up in 1 week for hypertension visit - CBC - COMP METABOLIC PANEL - TSH BLD - ECG COMPLETE - LISINOPRIL 10 MG-HYDROCHLOROTHIAZIDE 12.5 MG TABLET - BLOOD PRESSURE CUFF 2. Continuous tobacco abuse - ICD9: 305.1, ICD10: Z72.0 - Cessation encouraged. 3. Screening for diabetes mellitus - ICD9: V77.1, ICD10: Z13.1 - HGB A1C 4. Screening for prostate cancer - ICD9: V76.44, ICD10: Z12.5 - PSA/PROSTSPECAG SCRN 5. Screening for lipid disorders - ICD9: V77.91, ICD10: Z13.220 - LIPID PANEL, NONFASTING 6. Cataract of both eyes, unspecified cataract type - ICD9: 366.9, ICD10: H26.9 Will not clear for surgery today, return in 1 week to re-evaluate. Hollie Galindo APRN.[facility] Diagnosis Hypertension, essential- Primary Unspecified essential hypertension documented [facility] Diagnosis Hypertension, essential- Primary Unspecified essential hypertension Elevated serum creatinine Other nonspecific findings on examination of blood Elevated PSA Elevated prostate specific antigen (PSA) Hypertriglyceridemia Pure hyperglyceridemia [facility]* Diagnosis Hypertension, essential Unspecified essential hypertension [facility] Diagnosis Pre-op evaluation- Primary Preoperative examination, unspecified Hypertension, essential Unspecified essential hypertension Cataract of both eyes, unspecified cataract type Elevated serum creatinine Other nonspecific findings on examination of blood Hypertriglyceridemia Pure hyperglyceridemia documented in this encounter [facility] Summary Purpose Family History No Family History Records Found Advance Directives No Advanced Directives Records Found Additional Source Comments Source Comments (unrecognize d section and content) In the event this informatio n is protected by the Federal Confidentiality of Alcohol and Drug Abuse Patient Records regulations: The Federal rules restrict any use of the information to criminally investigate or prosecute any alcohol or drug abuse patient.[facility] the event this information is protected by the Federal Confidentiality of Alcohol and Drug Abuse Patient Records regulations: The Federal rules restrict any use of the information to criminally investigate or prosecute any alcohol or drug abuse patient.[facility] the event this information is protected by the Federal Confidentiality of Alcohol and Drug Abuse Patient Records regulations: The Federal rules restrict any use of the information to criminally investigate or prosecute any alcohol or drug abuse patient.[facility] the event this information is protected by the Federal Confidentiality of Alcohol and Drug Abuse Patient Records regulations: The Federal rules restrict any use of the information to criminally investigate or prosecute any alcohol or drug abuse patient.[facility] the event this information is protected by the Federal Confidentiality of Alcohol and Drug Abuse Patient Records regulations: The Federal rules restrict any use of the information to criminally investigate or prosecute any alcohol or drug abuse patient.[facility] the event this information is protected by the Federal Confidentiality of Alcohol and Drug Abuse Patient Records regulations: The Federal rules restrict any use of the information to criminally investigate or prosecute any alcohol or drug abuse patient.[facility] the event this information is protected by the Federal Confidentiality of Alcohol and Drug Abuse Patient Records regulations: The Federal rules restrict any use of the information to criminally investigate or prosecute any alcohol or drug abuse patient.[facility] the event this information is protected by the Federal Confidentiality of Alcohol and Drug Abuse Patient Records regulations: The Federal rules restrict any use of the information to criminally investigate or prosecute any alcohol or drug abuse patient.[facility] Reason for Visit (unrecogniz ed section and content) Reason Comments Follow Up Blood pressure Reason Onset Date Comments Refill Request 06/01/2023 Reason Comments Opened In Error Reason Comments pre op clearance form [facility] Care Teams (unrecognized sec tion and content) Airfield Engineer Officer Relationship Specialty Start Date End Date Shahana Barber MD [address] [address] [place], [place] [id number] PCP - General Family Medicine 05/08/23 Airfield Engineer Officer Relationship Specialty Start Date End Date Shahana Barber MD [address] [facility] [facility] [address] [address] [place], [place] [id number] PCP - General Family Medicine 05/08/23 Airfield Engineer Officer Relationship Specialty Start Date End Date Shahana Barber MD [address] [facility] [address] [address] [place], [place] [id number] PCP - General Family Medicine 05/08/23 (unrecognized sect ion and content) No Status Records Found INFORMATION SOURCE (unrecogn ized section and content) FOR RECORDS PERTAINING TO PATIENTS WHO ARE OR HAVE BEEN ENROLLED IN A CHEMICAL DEPENDENCY/SUBSTANCEABUSE PROGRAM, SOME INFORMATION MAY BE OMITTED. This clinical summary was aggregated from multiple sources. Caution should be exercised in using it in the provision of clinical care. This summary normalizes information from multiple sources, and as a consequence, information in this document may materially change the coding, format and clinical context of patient data. In addition, data may be omitted in some cases. CLINICAL DECISIONS SHOULD BE BASED ON THE PRIMARY CLINICAL RECORDS. [employer] [facility]. provides no warranty or guarantee of the accuracy or completeness of information in this document.
[2023-08-03] MEDS: Morphine 2 MG/ML Syringe IV ×2 (04:30→07:52)
[2023-08-03] MEDS: KCL 20MEQ in 0.9% NS 20 MEQ/1,000 ML IV.SOLN. 100 MEQ IV (04:31)
[2023-08-03] MEDS: Potassium Chloride Oral Tablet 20 MEQ 40 MEQ PO (06:15)
[2023-08-03 07:52] LABS: Absolute Lymphocyte Count 1.11 X10^3/uL (0.83-4.51); Basophil# 0.02 X10^3/uL; Basophil% 0.2 % (0-1); Eosinophil# 0.06 X10^3/uL; Eosinophils% 0.7 % (0-5); Hematocrit 41.3 % (40-54); Hemoglobin 13.9 g/dL (13.0-16.5); Lymphocyte # 1.11 X10^3/ul (0.83-4.51); Lymphocyte % 12.3 % (19-41); Mean Corp Hgb Conc 33.7 g/dL (32-36); Mean Corpuscular Hgb 30.5 pg (27.0-32.0); Mean Corpuscular Volume 90.8 fL (80-94); Mean Platelet Vol. 9.8 fl (6.2-12.0); Monocyte# 0.74 X10^3/uL; Monocyte% 8.2 % (0-10); NRBC Flagged by Analyzer 0 % (0-5); Neutrophil # 7.04 X10^3/uL (2.7-7.7); Neutrophil % 77.9 % (47-70); Platelet Count 177 K/mm3 (150-450); RBC Distribution Width CV 14.1 % (11.6-14.6); RBC Distribution Width SD 47.4 fl (35.1-43.9); Red Blood Count 4.55 M/mm3 (4.6-6.2)
[2023-08-03] MEDS: 0.9% Saline Lock 10 ML Syringe IV (07:52)
--- NOTE | 2023-08-03 08:24 | PCM.PN.HOSP ---
Reason for Visit Reason for Visit: Diagnoses Obesity, unspecified (08/03/23) Hypokalemia (08/03/23) Essential (primary) hypertension (08/03/23) Acute kidney failure, unspecified (08/03/23) Fracture of unspecified part of neck of left femur, initial encounter for closed fracture (08/03/23) Objective Data Objective Data Vital Signs: Vital Signs Temp Pulse Resp BP Pulse Ox O2 Del Method 37.2 C 98 14 147/90 H 94 Room Air 08/03/23 07:43 08/03/23 07:43 08/03/23 07:43 08/03/23 07:43 08/03/23 07:43 08/03/23 07:43 Oxygen Delivery Method Room Air Weight: 101.5 kg Body Mass Index (BMI) 32.1 Intake & Output: Intake and Output for Last 24 Hours 08/01/23 08/02/23 08/03/23 23:59 23:59 23:59 Intake Total 1030 / 1030 Balance 1030 / 1030 Lab / Micro Data 08/03/23 07:18 08/03/23 07:18 Labs: Laboratory Results - last 24 hr 08/03/23 00:22: WBC 9.1, RBC 4.80, Hgb 14.4, Hct 43.0, MCV 89.6, MCH 30.0, MCHC 33.5, RDW Std Deviation 45.0 H, RDW Coeff of Cheryl 13.8, Plt Count 183, MPV 10.0, Sodium 136, Potassium 3.3 L, Chloride 105, Carbon Dioxide 22.0, Anion Gap 9, BUN 28 H, Creatinine 1.95 H, Estim Creat Clear Calc 37.44, Est GFR (MDRD) Af Amer 44 L, Est GFR (MDRD) Non-Af 37 L, BUN/Creatinine Ratio 14.4, Glucose 137 H, Calcium 9.5 08/03/23 07:18: WBC 9.0, RBC 4.55 L, Hgb 13.9, Hct 41.3, MCV 90.8, MCH 30.5, MCHC 33.7, RDW Std Deviation 47.4 H, RDW Coeff of Cheryl 14.1, Plt Count 177, MPV 9.8, Immature Gran % (Auto) 0.700, Neut % (Auto) 77.9 H, Lymph % (Auto) 12.3 L, Drew % (Auto) 8.2, Eos % (Auto) 0.7, Baso % (Auto) 0.2, Absolute Neuts (auto) 7.0, Absolute Lymphs (auto) 1.11, Nucleated RBC % 0 Radiography Diagnostic Testing: Radiology Impression Brain CT 08/03/23 00:07 IMPRESSION: No acute intracranial finding. Electronically Signed: Manoj Dominguez MD at 1:23 EST , Cervical Spine CT 08/03/23 00:07 IMPRESSION: No evidence of acute cervical spinal fracture or spondylolisthesis. Mild to moderate degenerative change throughout the cervical spine. Electronically Signed: Manoj Dominguez MD at 1:27 EST , Lumbar Spine CT 08/03/23 00:07 IMPRESSION: No evidence of acute lumbar spinal fracture or spondylolisthesis. Mild to moderate degenerative change throughout the lumbar spine. Electronically Signed: Manoj Dominguez MD at 1:21 EST , Chest X-Ray 08/03/23 01:00 IMPRESSION: No acute pulmonary finding. Electronically Signed: Manoj Dominguez MD at 1:27 EST , Femur X-Ray 08/03/23 01:00 IMPRESSION: Left femoral neck fracture with varus angulation. Electronically Signed: Manoj Dominguez MD at 1:29 EST , Pelvis X-Ray 08/03/23 01:00 IMPRESSION: Left femoral neck fracture. Electronically Signed: Manoj Dominguez MD at 1:33 EST , Physical Exam Narrative pt off the floor did not see. Assessment & Plan Assessment/Plan (1) Fracture of femoral neck, left: QUALIFIERS: Encounter type: initial encounter Fracture type: closed Qualified Code(s): S72.002A - Fracture of unspecified part of neck of left femur, initial encounter for closed fracture (2) Hypokalemia: (3) Essential hypertension: (4) ARCHANA (acute kidney injury): (5) Obesity (BMI 30.0-34.9): PLAN: Plan Left femoral neck fracture after mechanical fall Pain control. NWB. Check 25 OH D level. left hip hemiarthoplasty on the . PT OT. Hypokalemia 3.3 mmol/L present on admission complicating resolved after replacement. Suspected acute kidney injury elevated serum creatinine of 1.95 mg/dL on admission. Down to 1.67 with IVF. Unknown baseline. Monitor.resuscitation and recheck BMP in the a.m. to confirm suspicion Chronic conditions: Essential hypertension - Hold lisinopril/HCTZ for now in light of ARCHANA/CKD. Give IV hydralazine as needed for systolic blood pressure greater than or equal to 160 mmHg. Tobacco abuse - Tobacco cessation will be strongly encouraged with nicotine patch offered to control cravings. Obesity; with BMI of 32.6 this admission - Weight loss will be recommended. TSH WNL Recent surgery remove cataract from left eye last week - Stable. DVT prophylaxis - Place RLE SCD and avoid blood thinners preoperatively in cases of traumatic fracture due to increased risk of bleeding complications. Orthopedic team to decide upon postoperative DVT prophylaxis.
[2023-08-03 08:27] LABS: Anion Gap 9 (5-15); BUN 25 mg/dL (7-18); Calcium,Total 8.9 mg/dL (8.5-10.1); Chloride 106 mmol/L (98-107); Creatinine, Serum 1.67 mg/dL (0.70-1.30); EST Glomerular Filtration Rate 44 mL/min (>60); Est Glom Filt Rate - Afr Amer 53 mL/min (>60); Estimated Creatinine Clearance 43.71 ml/min; Glucose 117 mg/dL (74-106); Potassium 3.7 mmol/L (3.5-5.1); Sodium Level 138 mmol/L (136-145); Thyroid Stim Hormone (TSH) 1.59 uIU/mL (0.358-3.74)
--- NOTE | 2023-08-03 08:34 | NURSING ---
OBTAINED SON SUJEY CONTACT NUMBERS FROM [facility] PER PTS REQUEST. ATTEMPTED TO CONTACT [place] [facility] ([phone]) X2 AND HOME PHONE ([phone]) Y7.
[2023-08-03 08:58] LABS: Vitamin D,25 Hydroxy 21.1 ng/mL
--- NOTE | 2023-08-03 10:08 | CONS.ORTHO ---
HPI Consult Data Date of Consult: 08/03/23 HPI Narrative Reason for Consultation: Left femoral neck fracture HPI Narrative: LEESA LEON, is a 68 M who presented to [facility] emergency department last evening after a mechanical fall down approximately 4 stairs on his left hip. Patient also injured his face with significant periorbital ecchymosis noted. X-rays Emergency Department revealed a displaced left femoral neck fracture. CT C-spine, L-spine, head was negative for acute process. Patient was admitted under the service of the hospitalist. Orthopedics was consulted. I saw the patient in consultation this morning. Patient is a community ambulator without assistive device. He reports no antecedent left groin pain or treatment of osteoarthritis in the past. Denies fevers, chills, nausea vomiting, chest pain or shortness of breath. Admits to no pain besides his left hip. Denies any numbness or tingling. Pain is currently controlled. Patient was placed in Messina's traction by the admitting provider. Patient reports no history of VTE or difficulty with anesthesia in the past. [facility] Medical History Hypertension Home Medications lisinopril 10 mg-hydrochlorothiazide 12.5 mg tablet 1 tab PO DAILY htn 08/03/23 [History Last Taken 08/02/23] Allergy/AdvReac Type Severity Reaction Status Date / Time No Known Allergies Allergy Verified 08/03/23 00:09 Social History Smoking Status: Former smoker ROS ROS Narrative 12 point review of systems obtained, negative unless otherwise noted in HPI. Vital Signs Vital Signs Vital Signs: 08/02/23 23:59 08/03/23 00:03 08/03/23 02:30 Temperature 97.4 F L 98.0 F Temperature Source Temporal Pulse Rate 94 95 Respiratory Rate 18 16 Respiratory Effort Normal Respiratory Depth Respiratory Pattern Blood Pressure 142/82 H 156/90 H Blood Pressure Mean 102 112 Blood Pressure Source Blood Pressure Position Blood Pressure Location Pulse Ox 97 95 Oxygen Delivery Method Room Air Room Air 08/03/23 04:11 08/03/23 04:00 08/03/23 07:43 Temperature 98.9 F 99.0 F Temperature Source Temporal Oral Pulse Rate 94 98 Respiratory Rate 17 14 Respiratory Effort Normal Non-Labored Respiratory Depth Normal Respiratory Pattern Normal Blood Pressure 161/94 H 147/90 H Blood Pressure Mean 116 109 Blood Pressure Source Monitor Monitor Blood Pressure Position Semi-Fowlers Supine Blood Pressure Location Left Arm Left Arm Pulse Ox 96 94 Oxygen Delivery Method Room Air Room Air Room Air Weight Weight: 223 lb 12.307 oz Body Mass Index (BMI) 32.1 Physical Exam Narrative General -A&Ox3, NAD, appears stated age. Vital signs stable, afebrile. HEENT-periorbital ecchymosis and swelling, Steri-Strips in place. EOMI. PERRLA Respiratory -normal work of breathing, no intercostal retractions. CV -pulses regular, brisk capillary refill ?4 limbs. Abdomen-soft, nontender, nondistended. No guarding, rigidity, rebound tenderness. Musculoskeletal/neurologic -full range of motion nontender throughout bilateral upper extremities, right lower extremity with full sensation and strength in all dermatomes and myotomes. No midline cervical tenderness. Left lower extremity-no obvious deformity. Pain with logroll of the left lower extremity. Nontender throughout the left knee femoral shaft, tibial shaft and left foot/ankle. Brisk capillary refill. Sensation intact light touch L3-S1 dermatomes. DF, PF, EHL intact. DP, PT 2+. Pelvis is stable, nontender. Skin is intact without lacerations, abrasions. No ecchymosis noted. Lab / Micro Data 08/03/23 07:18 08/03/23 07:18 Labs: Laboratory Results - last 24 hr 08/03/23 00:22: WBC 9.1, RBC 4.80, Hgb 14.4, Hct 43.0, MCV 89.6, MCH 30.0, MCHC 33.5, RDW Std Deviation 45.0 H, RDW Coeff of Cheryl 13.8, Plt Count 183, MPV 10.0, Sodium 136, Potassium 3.3 L, Chloride 105, Carbon Dioxide 22.0, Anion Gap 9, BUN 28 H, Creatinine 1.95 H, Estim Creat Clear Calc 37.44, Est GFR (MDRD) Af Amer 44 L, Est GFR (MDRD) Non-Af 37 L, BUN/Creatinine Ratio 14.4, Glucose 137 H, Calcium 9.5 08/03/23 07:18: WBC 9.0, RBC 4.55 L, Hgb 13.9, Hct 41.3, MCV 90.8, MCH 30.5, MCHC 33.7, RDW Std Deviation 47.4 H, RDW Coeff of Cheryl 14.1, Plt Count 177, MPV 9.8, Immature Gran % (Auto) 0.700, Neut % (Auto) 77.9 H, Lymph % (Auto) 12.3 L, Graham % (Auto) 8.2, Eos % (Auto) 0.7, Baso % (Auto) 0.2, Absolute Neuts (auto) 7.0, Absolute Lymphs (auto) 1.11, Nucleated RBC % 0, Sodium 138, Potassium 3.7, Chloride 106, Carbon Dioxide 23.0, Anion Gap 9, BUN 25 H, Creatinine 1.67 H, Estim Creat Clear Calc 43.71, Est GFR (MDRD) Af Amer 53 L, Est GFR (MDRD) Non-Af 44 L, BUN/Creatinine Ratio 15.0, Glucose 117 H, Calcium 8.9, Vitamin D 25-Hydroxy 21.1, TSH 1.59, Blood Type O POSITIVE, Antibody Screen NEGATIVE Imagaing Radiology Impression Brain CT 08/03/23 00:07 IMPRESSION: No acute intracranial finding. Electronically Signed: Manoj Dominguez MD at 1:23 EST , Cervical Spine CT 08/03/23 00:07 IMPRESSION: No evidence of acute cervical spinal fracture or spondylolisthesis. Mild to moderate degenerative change throughout the cervical spine. Electronically Signed: Manoj Dominguez MD at 1:27 EST , Lumbar Spine CT 08/03/23 00:07 IMPRESSION: No evidence of acute lumbar spinal fracture or spondylolisthesis. Mild to moderate degenerative change throughout the lumbar spine. Electronically Signed: Manoj Dominguez MD at 1:21 EST , Chest X-Ray 08/03/23 01:00 IMPRESSION: No acute pulmonary finding. Electronically Signed: Manoj Dominguez MD at 1:27 EST , Femur X-Ray 08/03/23 01:00 IMPRESSION: Left femoral neck fracture with varus angulation. Electronically Signed: Manoj Dominguez MD at 1:29 EST , Pelvis X-Ray 08/03/23 01:00 IMPRESSION: Left femoral neck fracture. Electronically Signed: Manoj Dominguez MD at 1:33 EST , Assessment & Plan Assessment/Plan (1) Fracture of femoral neck, left: QUALIFIERS: Encounter type: initial encounter Fracture type: closed Qualified Code(s): S72.002A - Fracture of unspecified part of neck of left femur, initial encounter for closed fracture PLAN: Patient sustained a displaced left femoral neck fracture -Closed, neurovascularly intact -We discussed surgical options including left hip hemiarthroplasty versus total hip arthroplasty. I reviewed the risks and benefits of both procedures. I explained that patient has no significant degenerative changes on x-ray and no antecedent symptoms consistent with hip osteoarthritis. With his age, he is certainly at risk for developing acetabular osteoarthritis which may necessitate conversion to a total hip arthroplasty. I explained a total hip arthroplasty may mitigate risk of groin pain in the future, however there is a significant increased risk of instability which would be mitigated with a hemiarthroplasty. He wished to proceed with a left hip hemiarthroplasty. I explained I would recommend a total hip arthroplasty if significant chondromalacia or focal chondral lesions are identified intraoperatively and he was amenable to a total hip arthroplasty if this is the case. He agreed to consent to a left hp total versus mimi hip arthroplasty. -I discussed the procedure-its risks, benefits and alternative. Risks include but are not limited to bleeding, infection, loss of life or limb, risk of anesthesia, persistent pain or disability, leg length discrepancy, progression of arthritis, need for additional surgery, failure of orthopedic hardware, neurovascular injury, DVT or PE. Patient expressed understanding these risks and wished proceed with surgery. -Maintenance IV fluids, clear liquid diet after midnight n.p.o. at 2 hours prior to surgery -Type and screen -2 g Ancef on-call to the OR, 1 g IV TXA -Bedrest, heel protectors -Plan to proceed with surgery later today when OR becomes available Thank you for this consultation.
--- NOTE | 2023-08-03 10:24 | NURSING ---
OFF UNIT FOR PROCEDURE. ATTEMPTED TO CALL SON AGAIN
[2023-08-03] MEDS: Lactated Ringers 1,000 ML 15 ML IV (10:31)
--- NOTE | 2023-08-03 11:45 | HIP_PTH ---
PATHOLOGY RESULTS PATIENT: LEESA LEON LOC: MS3 U#:[id number] AGE/SX: 68/M ROOM: [facility] [place] RE08/03/[address]: Dr. Keith Hernandez, : 1955 BED: 1 DIS: 08/04/2023 SPEC #: [id number] RECD: 08/04/23 09:45 STATUS: SANDER RECassidy #: [id number] ELLIE: 08/03/23 11:[address]: Keenan Mars DEPT: SURGICAL PATHOLOGY RECD BY: Maral Murcia ENTERED: 08/04/23 09:45 SP TYPE: TOTAL HIP OTHR DR: Dr. Adis Zazueta, DO Dr. Keith Hernandez, DO Dr. Marco Parker, DO Dr. All Robbins, DO Dr. Keenan Mars, DO MD Dr. Deven Mathis MD Dr. Timothy J Miller, DPM No Primary Care Phys KEARA Mello PA Raymond Eshenaur, PA-C Thomas Janas, PA-C Tissues: Hip, NOS Procedures: Decalcification bone/plaque Surgery Specimen Level IV Comments: @ Ordering doctor for DEC edited from to @ enrique BLACKMAN at 08/04/23 1500 @ Ordering doctor for SUIV edited from to @ enrique BLACKMAN at 08/04/23 1500 @ Submitting doctor edited from to DR.NSPITT Selvin BLACKMAN at 08/04/23 1500 HEADER OPERATION: Hemiarthroplasty PRE-OP DIAGNOSIS: Fracture of left femoral neck TISSUE SUBMITTED: Left femoral head MICROSCOPIC DIAGNOSIS Left femoral head, total hip replacement/resection: Femoral head with focal area of hemorrhage, clinically fractured femoral neck. SABRINA:deanna 08/10/2023 MICROSCOPIC DESCRIPTION Slides are reviewed. GROSS DESCRIPTION Received is one container labeled with the patient's name and designated left femoral head. The specimen consists of a royal femoral head measuring 5.0 x 5.0 x 4.5 cm. A portion of femoral neck is also present measuring 2.0 cm in length. The articular surface is smooth. Resection margin is irregular and hemorrhagic. No soft tissue is identified. [employer] Specialist sections are submitted in two cassettes after decalcification. / SABRINA:deanna 08/04/2023 TC:5 CPT: 52148, 43263
[2023-08-03 12:02] LABS: AST(SGOT) 28 U/L (15-37); Alanine Aminotransfer ALT/SGPT 33 U/L (16-61); Albumin, Serum 3.3 g/dL (3.2-5.0); Alkaline Phosphatase 53 U/L (45-117)
[2023-08-03] MEDS: Cefazolin 2 GM in 0.9% Normal Saline (100mL Bag) 100 ML IV ×3 (12:15→22:09)
[2023-08-03] MEDS: TRANEXAMIC ACID 1,000 MG in 0.9% Normal Saline (100mL Bag) 100 ML 440 MG IV (12:30)
[2023-08-03] MEDS: JPS (Morphine 10mg/ml) OPERA.SITE (13:20)
--- NOTE | 2023-08-03 13:47 | PCM.OPRPT ---
Report of Operation Date of Procedure: 08/03/23 Description of Surgical Findings:: Preoperative diagnosis: Left displaced femoral neck fracture Postoperative diagnosis: Left displaced femoral neck fracture Procedure: Left hip hemiarthroplasty Surgeon: Keenan Mars DO Plaster Model And Mold Maker: Lila Petty PA-C Anesthesia: General endotracheal Anesthesiologist: Dr. Posadas Complications: None Drains: None Estimated blood loss: 150 cc Urinary output: None recorded IV fluids: 1200 cc crystalloid Specimens: Left femoral head Surgical implants: Burgaw Accolade two 127 degree neck angle hip stem size #7, Unitrax neck adjustment sleeve +4, Unitrax endoprosthesis head component outer diameter 50 mm Indications: This is a 68-year-old male who sustained a mechanical fall on his left hip last evening. He was admitted under the service of the hospitalist after x-rays in the emergency room revealed a displaced left femoral neck fracture. I was consulted to see the patient for surgical recommendations. I recommended a left hip hemiarthroplasty due to the pattern and displacement. I reviewed the procedure with the patient, its risk, benefits, alternatives. Risks included but were not limited to bleeding, infection, loss of life or limb, risk of anesthesia, neurovascular injury, persistent pain, instability, need for additional surgery, failure of orthopedic hardware, loosening, osteolysis, need for assistive devices long-term. Patient expressed understanding wish to proceed with surgery. Description of procedure: Prior to the procedure, patient was brought to the preoperative holding area where patient was identified by name, medical record number and date of . I confirmed the side, site, operation to be performed with the patient. Informed consent was confirmed, All questions were answered to patient satisfaction. The operative extremity was marked. She was also seen by anesthesia staff and anesthesia consent obtained.At time of the operative procedure, pt was brought to the operative suite. General anesthesia was induced on the hospital bed and endotracheal tube placed. After adequate anesthesia, patient was transferred to a standard operating table. She was then positioned in the lateral decubitus position with the left side up and held in position by [employer] hip positioner system. All bony prominences were well-padded. A axillary roll was placed under the patient's right axilla. Peroneal nerve was free with a blanket on the nonoperative extremity. Leg lengths were reproduced from patient's position when she was supine. The left lower extremity was then prepped and draped in normal, sterile orthopedic fashion. We performed a timeout with all parties in attendance in agreement with the side, site, and operation to be performed. No concerns were voiced and would like to proceed. I first marked an incision along the lateral aspect of the hip centered over the greater trochanteric tip. In standard posterior approach, a curvilinear incision was made above the trochanter. An approximately 12 cm incision was made. Skin was sharply incised with a 10 blade scalpel carried deep through subcutaneous layers to the level of the IT band. Gelpi retractors were then placed. A San was used to expose the IT band. Bovie cautery was then used for hemostasis and then to open the IT band. This was opened in line with the incision. A Charnley retractor was then placed. Sciatic nerve was free. The trochanteric bursa was then debrided. This identified the short external rotators after internal rotation of the hip. The fracture site was easily identified at this point. Short external rotators were taken down and tagged for later repair. Hip capsule was also tagged for repair with a stay suture. We then freshened the neck cut with a sagittal saw. Anterior and posterior acetabular retractors were placed to gain access to the femoral head. A corkscrew was used to remove the head. Any remaining debris was debrided from the acetabulum. We then placed the femoral head on the back table for measurement. We did use trial heads and selected a final size 50 with good suction fit. Box chisel was then utilized to gain access to the femoral canal. Canal finder was placed. Sequential broaches were used and press-fit manner. A final size 7 achieved excellent vertical and rotational stability. We then trialed with a standard and subsequently high offset stem. I offset did achieve excellent stability and reproduction of abductor tension. Leg lengths appeared appropriate with a +4 mm neck length. Trials were then removed. We copiously irrigated the wound with normal saline solution and dilute sterile Betadine solution. A size 7 stem was then impacted with excellent fixation. Final head was then impacted over the Ferris taper neck. Final reduction was performed. A posterior capsular repair was performed with #2 Ethibond suture. IT band was closed watertight with #1 Vicryl suture. Deeper fascial layers were closed with 0 Vicryl suture in interrupted fashion. Subcutaneous layers were reapproximated with 2-0 Vicryl suture and skin reapproximated with skin nubia. A silver dressing was applied. Patient tolerated procedure well without complication. Patient she was positioned back in the supine position on his hospital bed and subsequently extubated safely. Patient was transferred to PACU in stable condition. Blankets were placed between the patient's legs. Need for skilled clinical services assistant: Lila Petty PA-C was critical to the outcome of the case. During the course of the procedure the physician clinical services assistant played a vital role. Her intimate knowledge of my steps in the procedure aided in safe and expedient completion of the procedure. The PA played a vital role in positioning particularly in obtaining the appropriate positioning. The PA was also vital in the retraction of soft tissues during the exposure and protecting vital structures. She was also involved in trialing prostheses and dislocation/reductions. She also played a vital role in closure and dressing application with my direct supervision. Post Operative Plan: Weightbearing: Weightbearing as tolerated left lower extremity, posterior hip precautions. Blankets between the legs x 24 hours Antibiotics: Ancef 1 g every 8 hours x 3 doses DVT Prophylaxis: Lovenox 40 mg subcutaneous daily starting postoperative day #1, FELIXs, RAHUL simon, early mobilization [place]: None Dressing: Maintain silver dressing x7 days X-Rays: PACU x-rays ordered. Plan to follow-up in 2 weeks for repeat x-rays. Follow-up: 2 weeks in my office for staple removal
--- NOTE | 2023-08-03 14:00 | RAD_ITS ---
STUDY: X-RAY - PELVIS AND LEFT HIP REASON FOR EXAM: Male, 68 years old. Post Op -- AP both hips on single praveen/lateral of op hip PACU TECHNIQUE: 2 views of the pelvis and hip. COMPARISON: Comparison is made with prior study dated August 03, 2023. FINDINGS: The patient is status post left total hip replacement. There is good alignment. Postoperative soft tissue changes. RAD/Hip Min 2 Views (Portable) IMPRESSION: Status post left total hip replacement. There is good alignment. Postoperative soft tissue changes. Electronically Signed: Charan Cardenas MD at 14:45 EST ,
[2023-08-03] MEDS: hydroCHLOROthiazide 25 MG Tablet PO (15:42)
[2023-08-03] MEDS: Lisinopril 20 MG Tablet PO (15:43)
--- NOTE | 2023-08-03 16:07 | CASEMGMT ---
ANUJA NEWELL Assessment Face to Face with patient for initial transition planning/care coordination assessment. ANUJA NEWELL introduced self and role at [facility], pt voices understanding. Pt resting in bed and is A&Ox4 and is calm. Care providers, pharmacy, and demographics verified. Admitting dx: Fall, Lt hip fracture LACE Strata:1 PCP: No PCP, list provided Specialists: Denies Preferred Pharmacy: [facility] Insurance: [employer] [facility] ADV Prescription Benefit: Yes LNOK: Fab Obregon (Brother) Living Arrangements: Pt states living in a 1 story apartment with no steps to enter. Pt lives by himself. Pt states independent with ADLs and IADLs normally. Transportation: Pt reports he has not been able to drive for 3-4 years due to needing surgery on his right eye. Pt plan is to receive surgery at some point after discharge here and then take his driving exam again. Pt states his son can drive him. DME: Denies any use of DME except for a BP cuff. HHC/SNF: Denies history. Pt?s goal/plan: Pt goal is to receive surgery here and then work with PT/ OT after. Pts goal is to do well with therapy to be able to DC home via his son. Pt does not have PCP so pt may need outpatient therapy setup subsequently depending how he does after surgery. Melba Mackenzie RN, CM
[2023-08-03] MEDS: Calcium Carbonate 500 MG Tablet PO (17:18)
[2023-08-03] MEDS: Acetaminophen 325 MG Tablet 650 MG PO (17:31)
[2023-08-03] MEDS: Acetaminophen 500 MG Tablet 1000 MG PO (22:14)
[2023-08-04 04:05] VITALS: BP 159/76; PULSE 98; RESP 18; TEMP 36.9; O2SAT 96
[2023-08-04 04:24] VITALS: BMI 32.1
[2023-08-04] MEDS: Cefazolin 2 GM in 0.9% Normal Saline (100mL Bag) 100 ML IV (05:50)
[2023-08-04] MEDS: Acetaminophen 500 MG Tablet 1000 MG PO ×2 (05:51→13:13)
[2023-08-04 07:53] VITALS: BP 126/71; PULSE 99; RESP 16; TEMP 37.1; O2SAT 98
[2023-08-04] MEDS: hydroCHLOROthiazide 25 MG Tablet PO (07:57)
[2023-08-04] MEDS: Enoxaparin 40 MG/0.4 ML Syringe SC (07:57)
[2023-08-04] MEDS: Lisinopril 20 MG Tablet PO (07:57)
[2023-08-04] MEDS: Calcium Carbonate 500 MG Tablet PO ×3 (07:57→17:31)
--- NOTE | 2023-08-04 08:08 | PN.HOSP_ITS ---
Subjective Subjective Feels well. No new issues. Objective Data Objective Data Vital Signs: Vital Signs Temp Pulse Resp BP Pulse Ox O2 Del Method O2 Flow Rate 37.1 C 99 16 126/71 H 98 Room Air 2 08/04/23 07:53 08/04/23 07:53 08/04/23 07:53 08/04/23 07:53 08/04/23 07:53 08/04/23 07:53 08/03/23 17:45 Oxygen Flow Rate (L/min) 2 Oxygen Delivery Method Room Air Weight: 101.7 kg Body Mass Index (BMI) 32.1 Intake & Output: Intake and Output for Last 24 Hours 08/02/23 08/03/23 08/04/23 23:59 23:59 23:59 Intake Total 2397.00 / 2397.00 463 / 463 Output Total 400 / 400 Balance 1996. / 463 / 463 Lab / Micro Data 08/03/23 07:18 08/03/23 07:18 Labs: Laboratory Results - last 24 hr 08/03/23 07:18: Sodium 138, Potassium 3.7, Chloride 106, Carbon Dioxide 23.0, Anion Gap 9, BUN 25 H, Creatinine 1.67 H, Estim Creat Clear Calc 43.71, Est GFR (MDRD) Af Amer 53 L, Est GFR (MDRD) Non-Af 44 L, BUN/Creatinine Ratio 15.0, Glucose 117 H, Calcium 8.9, Total Bilirubin 1.00, AST 28, ALT 33, Alkaline Phosphatase 53, Albumin 3.3, Vitamin D 25-Hydroxy 21.1, TSH 1.59, Blood Type O POSITIVE, Antibody Screen NEGATIVE Radiography Diagnostic Testing: Radiology Impression Hip X-Ray 08/03/23 14:00 IMPRESSION: Status post left total hip replacement. There is good alignment. Postoperative soft tissue changes. Electronically Signed: Charan Cardenas MD at 14:45 EST , Physical Exam Const alert and no apparent distress Extremity Extremity Narrative: Dressing over the incision but no bruising. Assessment & Plan Assessment/Plan (1) Fracture of femoral neck, left: QUALIFIERS: Encounter type: initial encounter Fracture type: closed Qualified Code(s): S72.002A - Fracture of unspecified part of neck of left femur, initial encounter for closed fracture (2) Hypokalemia: (3) Essential hypertension: (4) ARCHANA (acute kidney injury): (5) Obesity (BMI 30.0-34.9): PLAN: Plan Left femoral neck fracture * after mechanical fall * Pain control. NWB. Check 25 OH D level. * left hip hemiarthoplasty on the . * PT OT. Hypokalemia * 3.3 mmol/L present on admission complicating * resolved after replacement. Suspected acute kidney injury * elevated serum creatinine of 1.95 mg/dL on admission. Down to 1.67 with IVF. Unknown baseline. Monitor.resuscitation and recheck BMP in the a.m. to confirm suspicion Chronic conditions: * Essential hypertension - Hold lisinopril/HCTZ for now in light of ARCHANA/CKD. Give IV hydralazine as needed for systolic blood pressure greater than or equal to 160 mmHg. * Tobacco abuse - Tobacco cessation will be strongly encouraged with nicotine patch offered to control cravings. * Obesity; with BMI of 32.6 this admission - Weight loss will be recommended. TSH WNL * Recent surgery remove cataract from left eye last week - Stable. Disposition to home with either home health or outpatient therapy.
[2023-08-04] MEDS: oxyCODONE 5 MG Tablet 10 MG PO ×2 (08:09→17:31)
--- NOTE | 2023-08-04 08:37 | PCM.PN.ORT ---
Subjective Subjective patient is a 68 year old Male s/p left hip hemiarthroplasty with Dr. Mars on 08/03/23 after having a mechanical fall and femoral neck fracture. patient is in bedside chair this [facility] on exam and feeling well. he has been up with PT with a walker and has minimal pain. dressing intact, no drainage. he denies chest pain, SOB, calf pain. afebrile. denies history of DVT or PE. Objective Data Objective Data Vital Signs: Vital Signs Temp Pulse Resp BP Pulse Ox O2 Del Method O2 Flow Rate 98.7 F 99 16 126/71 H 98 Room Air 2 08/04/23 07:53 08/04/23 07:53 08/04/23 07:53 08/04/23 07:53 08/04/23 07:53 08/04/23 08:20 08/03/23 17:45 Oxygen Flow Rate (L/min) 2 Oxygen Delivery Method Room Air Weight: 101.7 kg Body Mass Index (BMI) 32.1 Intake & Output: Intake and Output for Last 24 Hours 08/02/23 08/03/23 08/04/23 23:59 23:59 23:59 Intake Total 2397.00 / 2397.00 463 / 463 Output Total 400 / 400 Balance 1996.00 / 1996. 463 / 463 Lab / Micro Data 08/03/23 07:18 08/03/23 07:18 Labs: Laboratory Results - last 24 hr 08/03/23 07:18: Total Bilirubin 1.00, AST 28, ALT 33, Alkaline Phosphatase 53, Albumin 3.3, Vitamin D 25-Hydroxy 21.1 Radiography Diagnostic Testing: Radiology Impression Hip X-Ray 08/03/23 14:00 IMPRESSION: Status post left total hip replacement. There is good alignment. Postoperative soft tissue changes. Electronically Signed: Charan Cardenas MD at 14:45 EST , Physical Exam Narrative sitting in bedside chair resting comfortably room air no acute distress left leg is warm to touch dressing c/d/i sensation intact throughout entire extremity full dorsi/plantar flexion full ROM at knee. dorsi flexion/ plantar flexion strength 5/5. Assessment & Plan Assessment/Plan (1) Fracture of femoral neck, left: QUALIFIERS: Encounter type: initial encounter Fracture type: closed Qualified Code(s): S72.002A - Fracture of unspecified part of neck of left femur, initial encounter for closed fracture PLAN: POD1 s/p left hip hemiarthroplasty with Dr. Mars. 1. WBAT, PT/OT. blankets between legs to prevent abduction x 48 hours. posterior hip precautions x 6 weeks. 2. no leukocytosis, or acute anemia. 3. lovenox daily for DVT ppx x 2 weeks. ok to discharge home with aspirin 81mg BID if patient is returning home (unless medicine feels strongly about lovenox for other medical reasons). if he is going to a SNF or rehab facilicty would recommend continue lovenox. 4. ok to remove post op dressing post op day 7. 5. patient to follow up in our office in 2 weeks for incision check and xrays. 6. begin outpatient PT upon discharge. 7. tylenol 1000mg q8 , oxycodone q6hrs prn pain 8. ok from an orthopaedic standpoint for discharge. discharge per primary. 9. ortho will sign off. (2) Status post hip hemiarthroplasty:
--- NOTE | 2023-08-04 13:04 | NURSING ---
Established patient an apt with primary care physician through [facility] through sada Lipscomb team. I had tried [facility] and [facility] office which are closed for the holiday today. Doctor wanted this established before left hospital. Contacted the hospital van to transport patient to apts.
--- NOTE | 2023-08-04 13:13 | DS.PCM_ITS ---
Providers Date of Admission: 08/03/23 Primary Care Physician: Noemi Primary Care Phys Consultations 08/03/23 02:49 Consult: Orthopedics Routine Consulting Provider: [facility] Reason for Consult: Left hip fracture after mechanical fall. EMERGENT Consult: No MD Notified: Yes Date Notified: 08/03/23 Time Notified: 06:48 Method of Notification: Verbal Reason For Visit: LEFT HIP FRACTURE AFTER MECHANICAL FALL AND Diagnosis Discharge Diagnosis (1) Fracture of femoral neck, left: Status: Acute Code(s): S72.002A - Fracture of unspecified part of neck of left femur, initial encounter for closed fracture Qualifiers: Encounter type: initial encounter Fracture type: closed Qualified Code(s): S72.002A - Fracture of unspecified part of neck of left femur, initial encounter for closed fracture (2) Hypokalemia: Status: Acute Code(s): E87.6 - Hypokalemia (3) Essential hypertension: Status: Acute Code(s): I10 - Essential (primary) hypertension (4) ARCHANA (acute kidney injury): Status: Acute Code(s): N17.9 - Acute kidney failure, unspecified (5) Obesity (BMI 30.0-34.9): Status: Acute Code(s): E66.9 - Obesity, unspecified Plan Left femoral neck fracture * after mechanical fall * Pain control. NWB. Check 25 OH D level. * left hip hemiarthoplasty on the . * PT OT. Hypokalemia * 3.3 mmol/L present on admission complicating * resolved after replacement. Suspected acute kidney injury * elevated serum creatinine of 1.95 mg/dL on admission. Down to 1.67 with IVF. Unknown baseline. Monitor.resuscitation and recheck BMP in the a.m. to confirm suspicion Chronic conditions: * Essential hypertension - Hold lisinopril/HCTZ for now in light of ARCHANA/CKD. Give IV hydralazine as needed for systolic blood pressure greater than or equal to 160 mmHg. * Tobacco abuse - Tobacco cessation will be strongly encouraged with nicotine patch offered to control cravings. * Obesity; with BMI of 32.6 this admission - Weight loss will be recommended. TSH WNL * Recent surgery remove cataract from left eye last week - Stable. Disposition to home with either home health or outpatient therapy. Medications at Discharge Home Medications lisinopril 10 mg-hydrochlorothiazide 12.5 mg tablet 1 tab PO DAILY htn 08/03/23 acetaminophen 500 mg tablet 1,000 mg (2 x 500 mg) PO Q8 PRN fever or pain #20 tabs 08/04/23 oxycodone 5 mg tablet 5 mg PO Q6H PRN pain (scale score 7-10) 3 days #12 tabs 08/04/23 Hospital Course Operations - (left hip hemiarthoplasty) Weight / BMI Weight Weight: 101.7 kg Body Mass Index (BMI) 32.1 ABG / Lab / Microbiology Data 08/03/23 07:18 08/03/23 07:18 Radiography Diagnostic Testing: Radiology Impression Hip X-Ray 08/03/23 14:00 IMPRESSION: Status post left total hip replacement. There is good alignment. Postoperative soft tissue changes. Electronically Signed: Charan Cardenas MD at 14:45 EST Reading Location ID and State: [facility] / [place] , Service support , D/C Instructions Discharge Diet: No restrictions Discharge Activity: Use Walker Weight Bearing Status: Weight bearing as tolerated Keep extremity elevated above heart level: Left Leg Meaningful Use Info Meaningful Use Diagnoses (Choose all that apply): None applicable Discharge Plan Admission Admit Date/Time: 08/03/23 02:43 Primary Reason for Your Visit: Left hip fracture Attending Provider: Keith Hernandez Primary Care Provider: Care Physician,No Primary Consulting Providers: Adis Zazueta; Marco Parker; All Robbins; Keenan Mars; Gordon Mackenzie; Deven Mena; Paras Mackenzie Breanne PA; Lila Petty; Cayetano Mays; Sushil Briseno Discharge Orders/Prescriptions Prescriptions: New acetaminophen 500 mg Tablet 1,000 mg PO Q8 PRN (Reason: fever or pain) Qty: 20 0RF oxycodone 5 mg tablet 5 mg PO Q6H PRN (Reason: pain (scale score 7-10)) 3 Days Qty: 12 0RF Continued lisinopril-hydrochlorothiazide 10-12.5 mg tablet 1 tab PO DAILY Patient Comments: Take 2 tablets by mouth every morning. Referrals / Follow Up: Debora Lipscomb MD [Med Staff - Flight Attendant Ramp] - 08/28/23 2:00 pm (transportation will be there to pick u up at 1pm) Keenan Mars DO [Med Staff - Active Staff] - Within 2 Weeks Care Physician,No Primary [Primary Care Provider] - Disposition Disposition (needs filled in before D/C Order can be placed): Home Health Service Charges/Coding Visit Charges Inpatient E&M: 44072 Disch Hosp
--- NOTE | 2023-08-04 13:34 | CASEMGMT ---
Social Work SW met with pt to discuss advance directives.? Pt confirms he has completed a living will and health care POA naming his son Garrett Chong.? Pt notified that documents are not on file at [facility] and SW requested they be brought in for scanning into the EMR.? SANDIP Pina
[2023-08-04 13:59] VITALS: BP 133/80; PULSE 81; RESP 16; TEMP 36.8; O2SAT 95
--- NOTE | 2023-08-04 14:30 | CASEMGMT ---
Discharge Planning Referrals were sent to the following and all declined; [facility], [facility], [facility], [facility], [facility], [facility], [facility], [facility], [facility], , [facility], [facility], [facility], [facility], [facility], [facility], [facility], [facility], and [facility]. RN SW updated. Annika Glass, Discharge Planning Asst.
--- NOTE | 2023-08-04 15:57 | CASEMGMT ---
Addendum entered by Carlos Eduardo Brown 08/04/23 17:17: No return call from son, Garrett. Call placed back to Garrett at this time and he did answer. He states he had not checked his VM yet. Garrett made aware pt is discharging home today. Reviewed appts that have been set up with PCP, Dr Mars, and [facility] for OP therapy on Monday along w/[facility] van transportation. Also discussed with him concerns with pt not having a phone. He states he would be able to assist pt w/getting a phone. Garrett states he will be coming to the hospital in an hour or two to take pt home. He denies having other questions or needs. Original Note: ANUJA NEWELL NOTE: Therapy notes reviewed this AM. ANUJA NEWELL in to discuss discharge planning w/pt this morning. Pt told ANUJA NEWELL that he wishes to discharge home and does not want to go to a SNF. He states he feels he will be safe at home alone. He states his apt Is about as big as this room as he was pointing to his hospital room, and states he has not concerns w/going home. Discussed option of HHC vs OP therapy and questions answered. Pt states he prefers to have HHC. He does not have a PCP to follow for HHC. ANUJA NEWELL contacted Dr Mars who stated he would follow pt for HHC. Annika, digital sales planner, attempted to find an accepting HHC agency w/out success. Pt made aware and is agreeable to going to OP therapy and states would need to go to [facility] d/t they have van transport, stating his son works every day and would be unable to take him to therapy. Dr Mars made aware pt will be doing OP therapy now instead of HHC and he will not need to follow for HHC. Appt @ [facility] scheduled for 08/08 @ 10 AM w/[facility] van transport scheduled to pick pt up @ 9:30 AM to take him to this appt. This was added in discharge plan and pt made aware of above. He voices appreciation. Fur Operator, Eliane, has worked w/pt today and got an appt set up for him to see Dr Lipscomb to get established as a new pt and has arranged for [facility] Van transport to this appt. A f/u appt w/Dr Mars has also been set up along [facility] Van transportation and this has been added to pt's discharge plan. Pt made aware of these appts and van transport. Pt also provided [facility] van transport contact info and hours. Pt made aware advanced practice rn is unable to assist w/getting in/out of the van and states he will be able to do this independently. Pt initially stated he would be able to borrow a walker from his mom, but then later states he would like to get one before leaving the hospital just in case . He denied having any preference of DME co. for a walker, made aware [facility] is affiliated [facility] and stated okay with [facility]. Script obtained from Dr Hernandez and sent to [facility] via [employer]. Felipa from [facility] [employer] has delivered walker to pt's room. Pt aware his brother, Fab, is only contact # listed. He states that is old information and he is not sure if that is the correct #. He asked for his son, Garrett, to be listed as primary salesperson women's dresses. ANUJA Pandey, states she obtained Garrett's contact info yesterday and ANUJA NEWELL added this in pt's contact list at this time. Pt states he thinks his son works until 7 PM this evening and had told him he would be coming to see him this evening after work. He states his son will be able to take him home tonight, but that he has not called him to let him know he is discharged. He gave permission for ANUJA NEWELL to call Garrett to update him that he has been discharged today, to discuss discharge plan re: OP therapy @ [facility], and appts with him. Pt verifies that he does not have a phone. He states he had plans to get cataract surgery next week and has been saving his money up for this. He states that he has cancelled that surgery now since this admission to [facility], but that he still does not have money to buy a phone, stating that he has limited income and states once he pays his rent, pays utilities, and gets groceries that he does not have any money left over. ANUJA NEWELL spoke w/pt about possible options of getting a basic phone with minutes and inquired if his son may have money to assist w/getting a phone, as he will be going home alone. He states he is not sure if his son will have the money to do this but gave permission for ANUJA NEWELL to discuss this with him as well. SW, Bria, made aware of financial limitations and will meet w/pt to provide resources. Call placed to pt's son, Garrett, troy #. No answer. VM left for him to call this ANUJA NEWELL back. Call also placed to son's home # ([phone]). The home # is not a working #, as a message came on that the call would not go through. Call also placed to # on file for pt's brother, Fab Obregon ([phone]). This # has been disconnected/is no longer in service. Awaiting return call from son. Héctor CAIN ANUJA NEWELL
== END 2023-08-04 20:00 | disposition home or self-care (01) | DRG 522 ==
LOC: ED 08-03 00:31 → MS3 08-03 02:49
PROVIDERS: Student in an Organized Health Care Education/Training Program; Admitting Provider Internal Medicine; Emergency Provider Emergency Medicine; PCP Internal Medicine; Referring Provider Internal Medicine
PROC: 0SRS0JA Replacement of Left Hip Joint, Femoral Surface with Synthetic Substitute, Uncemented, Open Approach (ICD-10-PCS; CPT 27125; principal; 2023-08-03 11:25)
DX: S72.002A Fracture of unspecified part of neck of left femur, initial encounter for closed fracture (principal); N17.9 Acute kidney failure, unspecified; I10 Essential (primary) hypertension; S09.90XA Unspecified injury of head, initial encounter; E87.6 Hypokalemia; F17.210 Nicotine dependence, cigarettes, uncomplicated; W19.XXXA Unspecified fall, initial encounter; E66.9 Obesity, unspecified; Z68.32 Body mass index [BMI] 32.0-32.9, adult; Z23 Encounter for immunization
CPT/HCPCS: 36415; 70450; 71045; 72125; 72131; 72170; 73502; 73552; 80048; 82040; 82247; 82306; 84075; 84443; 84450; 84460; 85025; 85027; 86850; 86900; 86901; 88305; 88311; 90471; 90715; 93005; 94668; 97162; 97166; 99283; C1776; J7030; J7120; A4216; J2405

== ENCOUNTER → 2023-08-28 | Outpatient (CLI) | payer MEDICARE, SELFPAY ==
[2023-08-28 17:06] LABS: ALB/GLOB Ratio 0.8 RATIO (0.9-2.4); AST(SGOT) 18 U/L (15-37); Alanine Aminotransfer ALT/SGPT 26 U/L (16-61); Albumin, Serum 3.5 g/dL (3.2-5.0); Alkaline Phosphatase 93 U/L (45-117); Anion Gap 6 (5-15); BUN 30 mg/dL (7-18); BUN/Creat Ratio 17.4 RATIO (10-20); Calcium,Total 9.3 mg/dL (8.5-10.1); Chloride 106 mmol/L (98-107); Cholesterol 142 mg/dL (200); Creatinine, Serum 1.72 mg/dL (0.70-1.30); EST Glomerular Filtration Rate 42 mL/min (>60); Est Glom Filt Rate - Afr Amer 51 mL/min (>60); Globulin 4.5 g/dL (2.2-4.2); Glucose 104 mg/dL (74-106); High Density Lipoprotein 38 mg/dL; PSA,Total - Annual Screen 4.48 ng/mL (0.00-4.00); Potassium 3.6 mmol/L (3.5-5.1); Sodium Level 137 mmol/L (136-145); Triglycerides 235 mg/dL; Very Low Density Lipoprotein 47 mg/dL (5-40)
[2023-08-28 19:50] LABS: Hemoglobin A1c 5.6 % (3.8-5.6)
== END | disposition home or self-care (01) ==
LOC: BIMLAB 14:50
PROVIDERS: PCP Internal Medicine; Referring Provider Nurse Practitioner; Visit Provider Nurse Practitioner
DX: Z00.00 Encounter for general adult medical examination without abnormal findings (principal); Z12.5 Encounter for screening for malignant neoplasm of prostate; E66.9 Obesity, unspecified; I10 Essential (primary) hypertension
CPT/HCPCS: 36415; 80053; 80061; 83036; 84153; G0103

== ENCOUNTER 2023-09-06 10:00 | Outpatient (RCR) | payer MEDICARE, SELFPAY ==
--- NOTE | 2023-08-08 11:02 | HP.PTEVAL ---
Patient's Visit Information Visit Information Visit Information: LEESA LEON is a 68 year old M referred to Physical Therapy by Dr. Keith Hernandez DO with a diagnosis of Left hip hemiarthroplasty 08/03/23. Date of Evaluation: 08/08/23 Physical Therapist: Gisselle White DPT Visit Plan Frequency: 2x /Week Duration: 4 Weeks Plan: Left hip hemiarthroplasty 08/03/23 HEP Given: Std Marching, Abd, Extn, Sit to Stand, HR/TR Subjective Subjective: Patient reports that he took a tumble down the stairs and fractured his left hip- Dr. Mars 08/03-Left hip hemiarthroplasty. Went home on 08/05/23 and he lives indep- with no stairs- he did not drive prior to the fall- but he was fully I with all of his ADL's. He was not using an AD prior to the fall but is now using a FWW. Currently a 3-4/10 due to falling out of bed last night. Worst: 4/10 Agg: stiffness when he gets up from sitting. Best: 0/10- most of the time. The pain is located right in the hip nothing radiating down or up. No N/T in the toes. Sleep: not disturbed- he does not sleep well anyways- in his bed- was a side sleeper but is now sleeping on his back. He is retired. He is working on getting his cataracts fixed. PMHx/Meds: no change since hospital stay. Objective Objective: Posture: Forward head, rounded shoulders Gait: FWW- decreased stance on left LE HR/TR: able with UE A Observation: no s/s of infection SLS: weight shift no pain ROM: WFL Sensation: WNL to gross touch bilateral Strength: Core: fair, Knee: Flexion: 32 Extn: 55 Hip: Flexion: 23 Extn: 44 Abd: 23, Ankle: 5/5 Stairs: asc/desc 8 recip with 2 HR Balance/Special Test Scores Lower Extremity Functional Score: 21 Goals Goal 1:: Patient will report participation in home exercise program activities a minimum of 5 days per week, as adjunct to skilled physical therapy intervention in preparation for independent home management upon discharge. Goal Time Frame: 4-6 Weeks Goal 2:: Patient will ambulate >300 feet with LRD and normalized gait pattern Goal Time Frame: 4-6 Weeks Goal 3:: Patient will asc/desc 8 recip with 1 HR Goal Time Frame: 4-6 Weeks Goal 4:: Patient will report 80% better Goal Time Frame: 4-6 Weeks Rehabilitation Potential Physical Therapy Diagnosis: Patient presents s/p Left hip hemiarthroplasty 08/03/23 after fall- he has decreased strength in LE, flex, proprioception and muscular endurance leading to abnormal gait and decreased ability to perform ADL's. Rehabilitation Potential: Good Anticipated Interventions Patient/Client Instruction: Educate patient on: Benefits of Fitness Program Therapeutic Exercise to Include: Strength training, Endurance training, Balance training, Coordination, Agility training, Body mechanics, Postural training, Flexibilty training, Gait and locomotor training, Neuromotor development, Active ROM, Dynamic Lumbar Stabilization and Scapular Strength/Stabilization For the Purpose of:: To improve muscle performance and motor function Cryotherapy (ice pack, ice massage): Yes Thermo therapy (hot pack): Yes Text: Thank you for the opportunity to evaluate your patient. For Medicare and Medicare HMO plans, please review the plan of care and approve it. It will need to be FAXED BACK to us at [phone] for Medicare purposes. For Medicare only, by signing this I certify the plan of care. Please let me know if there are questions or concerns regarding this plan of care. Physician Signature: Date:
--- NOTE | 2023-11-20 11:24 | HP.PT.NRP ---
Patient Information Patient Information: LEESA LEON was seen in my office for initial evaluation on 08/08/23. The following Plan of Care was established for this patient: POC Established Initial Frequency: 2x /Week Initial Duration: 4 Weeks Anticipated Interventions Patient/Client Instruction: Educate patient on: Benefits of Fitness Program Therapeutic Exercise to Include: Strength training, Endurance training, Balance training, Coordination, Agility training, Body mechanics, Postural training, Flexibilty training, Gait and locomotor training, Neuromotor development, Active ROM, Dynamic Lumbar Stabilization and Scapular Strength/Stabilization For the Purpose of:: To improve muscle performance and motor function Cryotherapy (ice pack, ice massage): Yes Thermo therapy (hot pack): Yes Last Seen Last Seen: This patient was last seen in our office . Pertinent comments regarding their Physical therapy will appear below: Patient has not attended PT in over 8 weeks- appropriate to be d/c at this time and to continue HEP. At this point I will be discontinuing this patient from physical therapy. I would be happy to see this patient again in the future if found appropriate by the physician. Thank you! Gisselle White, ANGELAT Balance/Gait/Functional tests Balance/Special Test Scores Lower Extremity Functional Score: 21 Tug Test: <20 sec.=mostly independent
== END 2023-09-06 19:00 | disposition home or self-care (01) ==
LOC: PT 10:00
PROVIDERS: PCP Internal Medicine
DX: Z98.890 Other specified postprocedural states (principal)
CPT/HCPCS: 97110; 97162

== ENCOUNTER → 2023-09-07 | Outpatient (CLI) | payer MEDICARE, SELFPAY ==
--- NOTE | 2023-09-07 15:02 | CT_ITS ---
HISTORY: tobacco use, lung cancer screening. TECHNIQUE: Helically acquired images were obtained of the chest without contrast. A radiation dose optimization technique was used for this scan. 909 images. COMPARISON: XR 08/03/2023. FINDINGS: LARGE AIRWAYS: Patent. LUNGS: Clear. Mild hyperinflation. PLEURA: No pneumothorax or significant pleural effusion. HEART/PERICARDIUM: Heart within normal limits in size with artery calcification. No pericardial effusion. VESSELS: Thoracic aorta nondilated. MEDIASTINUM/LANI: No pathologically enlarged adenopathy. UPPER ABDOMEN: Incompletely imaged 4 cm right renal cystic lesion. BONES: Degenerative change. CT/Low Dose CT Lung Screening IMPRESSION: Unremarkable examination. Lung-RADS category 1: Continue annual screening with low dose CT. Electronically Signed: Sharon Rivera MD at 15:27 EST ,
== END | disposition home or self-care (01) ==
LOC: CT 14:57
PROVIDERS: PCP Internal Medicine; Referring Provider Nurse Practitioner; Visit Provider Nurse Practitioner
DX: Z12.2 Encounter for screening for malignant neoplasm of respiratory organs (principal); F17.210 Nicotine dependence, cigarettes, uncomplicated
CPT/HCPCS: 71271

== ENCOUNTER → 2023-09-14 | Outpatient (CLI) | payer MEDICARE, SELFPAY ==
--- NOTE | 2023-09-14 12:31 | CT_ITS ---
STUDY: CT ABDOMEN AND PELVIS WITHOUT CONTRAST REASON FOR EXAM: Male, 68 years old. 4cm right renal cyst -- history of CKD, no contrast ordered RADIATION DOSAGE (If Supplied By Facility): CTDIvol = ( 19.03 ) mGy, DLP = ( 907.94 ) mGycm TECHNIQUE: Transaxial images were obtained from the dome of the diaphragm to the symphysis pubis without oral contrast, and without intravenous contrast. Sagittal and coronal images were reconstructed. Individualized dose optimization techniques were used for this CT. COMPARISON: None. FINDINGS: The visualized lung bases are unremarkable. The visualized portions of the heart are within normal limits. Normal liver. Normal gallbladder and extrahepatic biliary system. Normal spleen. Normal pancreas. Normal bilateral adrenal glands. There is a 5.9 cm x 4.8 cm cyst in the anterior upper midportion of the right kidney. 3.2 mm calculus in the upper pole calyx of the left kidney. Incidental note is made of a left retroaortic renal vein. There is a small hiatal hernia. Normal small intestine. There are scattered colonic diverticula consistent with diverticulosis. The appendix is visualized and appears normal. There is scattered atherosclerotic calcification of the abdominal aorta, without a demonstrated aneurysm. Normal inferior vena cava. Normal retroperitoneum. Normal urinary bladder. Normal abdominal wall. There are diffuse degenerative changes of the visualized lumbar spine. Mild levoscoliosis. The patient is status post left hip replacement. CT/Abdomen/Pelvis without Cont IMPRESSION: 5.9 cm x 4.8 cm cyst in the anterior upper midportion of the right kidney. 3.2 mm calculus in the upper pole calyx of the left kidney. Scattered sigmoid diverticula. Electronically Signed: Charan Cardenas MD at 13:55 EST ,
--- OUTSIDE RECORDS SUMMARY | 2023-09-14 14:04 | XMS RPT_ITS | CCD ---
Author Name Unknown Address [address] [place] [address] Organization [facility] Care Team Providers Care Grocery Supervisor Name Role Phone Unavailable Primary Care Provider UnavailShahana Murphy MD Primary Care Provider OCHOA GALINDO Attending Unavailable SHAHANA BARBER Primary Care Unavailable OCHOA GALINDO Attending Unavailable OCHOA GALINDO Attending Unavailable PHYSICIAN, NONE Attending Unavailable PHYSICIAN, NONE Primary Care Unavailable Medications Current Medications Medication Drug Class(es) [...] lity 06-05-2023 14:56-0400 Body height 177.8 cm Ochoa Ralf PAINTER BOTTOM.CN P Work Phone: [facility] 06-05-2023 14:56-0400 Body weight 102.51 kg Ochoa Ralf PAINTER BOTTOM.CN P Work Phone: [facility] 06-05-2023 14:56-0400 Diastolic blood pressure 80 mm[Hg] Ochoa Ralf PAINTER BOTTOM.COMMISSARY WORKER Work Phone: [facility] 06-05-2023 14:56-0400 Heart rate 94 /min Ochoa Ralf PAINTER BOTTOM.CN P Work Phone: [facility] 06-05-2023 14:56-0400 Systolic blood pressure 123 mm[Hg] Ochoa Ralf PAINTER BOTTOM.COMMISSARY WORKER Work Phone: [facility] 05-08-2023 14:33-0400 Diastolic blood pressure 100 mm[Hg] Ochoa Ralf PAINTER BOTTOM.COMMISSARY WORKER Work Phone: [facility] 05-08-2023 14:33-0400 Systolic blood pressure 146 mm[Hg] Ochoa Ralf PAINTER BOTTOM.COMMISSARY WORKER Work Phone: [facility] 05-08-2023 14:21-0400 Body height 177.8 cm Ochoa Ralf PAINTER BOTTOM.CN P Work Phone: [facility] 05-08-2023 14:21-0400 Body weight 102.51 kg Ochoa Ralf PAINTER BOTTOM.CN P Work Phone: [facility] 05-08-2023 14:21-0400 Heart rate 76 /min Ochoa Ralf PAINTER BOTTOM.CN P Work Phone: [facility] Encounters Encounter Date Encounter Type Care Provider Facility Start: 08-16-2023 ambulatory NONE PHYSICIAN Facility :R Start: 07-04-2023 Telephone encounter Shahana Barber MD Work Phone: Family Practice Procedures Date Procedure Procedure Detail Performing Clinician Start: 05-01-2023 Lipid 1996 panel - S stacia or Plasma Ochoa Ralf PAINTER BOTTOM.COMMISSARY WORKER Work Phone: Plan of Treatment Date Care Activity Detail Author Start: 05-01-2028 Lipid 1996 panel - Serum or Plasma Lipid Screening [facility] Start: 05-01-2028 Prostate Cancer Screening Discussion Prostate Cancer Screening Discussion [facility] Start: 05-01-2026 Diabetes Screening Diabetes Screenin g [facility] Start: 06-05-2024 Annual PCP Team [employer] bryn Disease Visit Annual PCP Team Chronic Disease Visit [facility] Start: 05-08-2024 Annual PCP Team [employer] bryn Disease Visit Annual PCP Team Chronic Disease Visit [facility] Start: 06-05-2023 End: 09-04-2023 Basic metabolic 2000 panel - Serum or Plasma BASIC METABOLIC PNL Lab Routine Hypertension, essential Expected: 06/05/2023, Expires: 09/04/2023 [facility] Work Phone: Payers Date Payer Category Payer Self-pay 2022 Medicare UHC AARP MEDICAR E [facility]LY [facility] MEDICARE O [id number] 2022-Present [phone] [address] [address] [place] [address] HMO [id number] 2022 Medicare [id number] 1955 Unknown [id number] Social History Date Type Detail Facility Start: 05-01-2023 [facility] Work Phone: History of tobacco use Cigarette Smoker C [facility] Work Phone: Start: 05-01-2023 End: 06-05-2023 Cigarettes smoked current (pack per day) - Reported 0.5 [facility] Work Phone: Start: 05-01-2023 Tobacco use and exposure Smokeless tobacco non-user [facility] Work Phone: Start: 05-01-2023 End: 05-08-2023 Alcohol intake Lifetime non-drinker (finding) [facility] Start: 05-01-2023 End: 06-05-2023 Tobacco use panel [facility] Work Phone: National Score (1-10 0), lower number is lower risk 66 [facility] Work Phone: Start: 1955 Sex Assigned At Not on file C [facility] Clinical Notes 05-01-2023 to 07-04-2023 Telephone Encounter - Blake Loera - 07/04/2023 8:27 AM ESTTelephone Encounter - Kim Ross - 06/27/2023 1:46 PM Ochoa Lucio APRN.TARA - 06/05/2023 3:11 PM EDT Note Date & Type Note Facility 07-04-2023 Miscellaneous Notes Received pre op clearance form from [facility]. Placed in provider's inbox for review. Route to [place] fax [phone] documented in this encounter [facility] 06-27-2023 Miscellaneous Notes Opened in error. Kim Mcclelland documented in this encounter [facility] 06-05-2023 Note HNO ID: [id number] Author: Ochoa Galindo APRN.TARA Service: ? Author Type: Nurse Practitioner Type: Progress Notes Filed: 06/05/2023 4:30 PM Note Text: This note was created using Qubitriter. Subjective Myles Chong is a 68 year [...] had any gallbladder disease?No Are there any taoism or cultural practices that may alter your [...] normal. Thought C (more content not included)... [facility] 06-05-2023 History of Present illness Narrative This note was created using Idea.meter. Subjective Myles Chong is a 68 year [...] had any gallbladder disease?No Are there any taoism or cultural practices that may alter your [...] appt with Dr. Barber to establish care. Chloe Alvarado, JAYME, RN (SIDE [employer]STER Student) TEACHING PROVIDER (Physician/PA/PAINTER BOTTOM) NOTE OF PERSONAL INVOLVEMENT IN CARE: I have personally seen and examined the patient and performed the medical decision-making components. I have reviewed the Advanced Practice Registered Nurse (PAINTER BOTTOM) Student's documentation and verified the findings in the note as written. Any additions or changes are noted in bold/italics. Signature: Ochoa Galindo Date: 06/05/2023 Time: 4:25 PM documented in this encounter [facility] 06-01-2023 Miscellaneous Notes Pharmacy verified in [facility] Patient has been identified by name [...] Date: BP: 05/08/2023 146/100[manual[ Please advise. Blake Loera Patient is out of the bp meds. Pharmacy verified in [facility] Patient has been identified by name [...] advise. Shilpa Mcclelland documented in this encounter [facility] 05-08-2023 Note HNO ID: [id number] Author: Ochoa Galindo APRN.COMMISSARY WORKER Service: ? Author Type: Nurse Practitioner Type: Progress Notes Filed: 05/08/2023 3:01 PM Note Text: This note was created using Stylehive. Subjective Myles Chong is a 67 year [...] smoking yet. The 10-year ASCVD risk score (Cleveland DK, et al., 2019) is: 31.2% Values [...] quit smoking, will re-evaluate at future appointment. Ochoa Galindo APRN.[facility] 05-08-2023 History of Present illness Narrative This note was created using Qubitriter. Subjective Myles Chong is a 67 year [...] quit smoking, will re-evaluate at future appointment. Ochoa Galindo APRN.TARA documented in this encounter [facility] 05-03-2023 Miscellaneous Notes Rx re-sent. Ochoa Galindo APRN.TARA Requested Prescriptions Signed Prescriptions Disp Refills Blood Pressure Monitor 1 Each 0 Si Each once daily. Authorizing Provider: OCHOA GALINDO Pharmacy Information Pharmacy Address [facility]phone [facility] [id number] [place] [address] [facility] calling in regard to request for blood pressure cuff. The prescription needs to state blood pressure monitor. Any questions, please call [phone] Ext 3 documented in this encounter [facility] 05-03-2023 Miscellaneous Notes Called and informed pt. Rx re-sent, let patient know. Ochoa Galindo APRN.COMMISSARY WORKER Selina from [employer] calling. They can not accept script for blood pressure cuff that was sent 05/01. New script needs written for Blood pressure Monitor- needs ICD 10 code with reason for monitor as well. Can fax to [phone]. Selina # [phone] ext 3 Donna Echols RN documented in this encounter [facility] 05-02-2023 Miscellaneous Notes Pharmacy calling requesting to speak to nurse. Transferred to nurse line. documented in this encounter [facility] 05-01-2023 Note HNO ID: [id number] Author: Ochoa Galindo APRN.TARA Service: ? Author Type: Nurse Practitioner Type: Progress Notes Filed: 05/01/2023 3:32 PM Note Text: This note was created using Qubitriter. Subjective Myles Chong is a 67 year old male. Patient here to establish care and needs clearance to have cataract surgery on 05/03. Hasn't seen a PCP in at least 15 years. Here with [id number] who is driving him because he can't [...] today, return in 1 week to re-evaluate. Ochoa Galindo APRN.[facility] [place] [facility] Diagnosis Hypertension, essential- Primary Unspecified essential hypertension [facility] [place] [facility] Diagnosis Hypertension, essential- Primary Unspecified essential hypertension Elevated serum creatinine Other nonspecific findings on examination of blood Elevated PSA Elevated prostate specific antigen (PSA) Hypertriglyceridemia Pure hyperglyceridemia documented in this encounter [facility] note* Diagnosis Hypertension, essential Unspecified essential hypertension documented in this encounter [facility] note* Diagnosis Pre-op evaluation- Primary Preoperative examination, unspecified Hypertension, essential Unspecified essential hypertension Cataract of both eyes, unspecified cataract type Elevated serum creatinine Other nonspecific findings on examination of blood Hypertriglyceridemia Pure hyperglyceridemia documented in this encounter [facility] Summary Purpose Family History No Family History Records FoundNo Family History Records Found Advance Directives No Advanced Directives Records FoundNo Advanced Directives Records Found Additional Source Comments Source Comments (unrecognize d section and content) In the event this informatio n is protected by the Federal Confidentiality of Alcohol and Drug Abuse Patient Records regulations: The Federal rules restrict any use of the information to criminally investigate or prosecute any alcohol or drug abuse patient.[facility] the event this information is protected by the Federal Confidentiality of Alcohol and Drug Abuse Patient Records regulations: The Federal rules restrict any use of the information to criminally investigate or prosecute any alcohol or drug abuse patient.[facility] the event this information is protected by the Federal Confidentiality of Alcohol and Drug Abuse Patient Records regulations: The Federal rules restrict any use of the information to criminally investigate or prosecute any alcohol or drug abuse patient.[facility] the event this information is protected by the Federal Confidentiality of Alcohol and Drug Abuse Patient Records regulations: The Federal rules restrict any use of the information to criminally investigate or prosecute any alcohol or drug abuse patient.[facility] the event this information is protected by the Federal Confidentiality of Alcohol and Drug Abuse Patient Records regulations: The Federal rules restrict any use of the information to criminally investigate or prosecute any alcohol or drug abuse patient.[facility] the event this information is protected by the Federal Confidentiality of Alcohol and Drug Abuse Patient Records regulations: The Federal rules restrict any use of the information to criminally investigate or prosecute any alcohol or drug abuse patient.[facility] the event this information is protected by the Federal Confidentiality of Alcohol and Drug Abuse Patient Records regulations: The Federal rules restrict any use of the information to criminally investigate or prosecute any alcohol or drug abuse patient.[facility] the event this information is protected by the Federal Confidentiality of Alcohol and Drug Abuse Patient Records regulations: The Federal rules restrict any use of the information to criminally investigate or prosecute any alcohol or drug abuse patient.[facility] Reason for Visit (unrecogniz ed section and content) Reason Comments Follow Up Blood pressure Reason Onset Date Comments Refill Request 06/01/2023 Reason Comments Opened In Error Reason Comments pre op clearance form [facility] Care Teams (unrecognized sec tion and content) Grocery Supervisor Relationship Specialty Start Date End Date Shahana Barber MD [address] [place], [place] [phone] PCP - General Family Medicine 05/08/23 Grocery Supervisor Relationship Specialty Start Date End Date Shahana Barber MD [address] [place] [phone] PCP - General Family Medicine 05/08/23 Grocery Supervisor Relationship Specialty Start Date End Date Shahana Barber MD [address] [place] [phone] PCP - General Family Medicine 05/08/23 (unrecognized sect ion and content) No Status Records FoundNo Status Records Found INFORMATION SOURCE (unrecogn ized section and content) DATE CREATED AUTHOR AUTHOR'S MERLE ATION 08/17/2023 [facility] naresh ([place]) FOR RECORDS PERTAINING TO PATIENTS WHO ARE [...] BE BASED ON THE PRIMARY CLINICAL RECORDS. [facility] [employer] [facility]. provides no warranty or guarantee of the accuracy or completeness of information in this document.
== END | disposition home or self-care (01) ==
PROVIDERS: PCP Internal Medicine; Referring Provider Nurse Practitioner; Visit Provider Nurse Practitioner
DX: N28.1 Cyst of kidney, acquired (principal)
CPT/HCPCS: 74176

== ENCOUNTER → 2023-11-27 | Outpatient (CLI) | payer MEDICARE, SELFPAY ==
[2023-11-27 16:01] LABS: Anion Gap 6 (5-15); BUN 14 mg/dL (7-18); BUN/Creat Ratio 8.3 RATIO (10-20); Calcium,Total 8.8 mg/dL (8.5-10.1); Chloride 102 mmol/L (98-107); Creatinine, Serum 1.68 mg/dL (0.70-1.30); EST Glomerular Filtration Rate 43 mL/min (>60); Est Glom Filt Rate - Afr Amer 52 mL/min (>60); Glucose 95 mg/dL (74-106); PSA,Total- Diagnostic 4.06 ng/mL (0.0-4.0); Potassium 3.7 mmol/L (3.5-5.1); Sodium Level 138 mmol/L (136-145)
[2023-11-27 16:12] LABS: Microalbumin,Random Urine 8.4 mg/L (NO RANGE EST.); Protein, Urine (Random) 16.9 mg/dL (<11.9); Protein:Creat Ratio 89 mg/g CRE (0-200)
== END | disposition home or self-care (01) ==
LOC: BIMLAB 13:34
PROVIDERS: PCP Internal Medicine; Referring Provider Nurse Practitioner; Visit Provider Nurse Practitioner
DX: I10 Essential (primary) hypertension (principal); N17.9 Acute kidney failure, unspecified; R97.20 Elevated prostate specific antigen [PSA]
CPT/HCPCS: 80048; 82043; 82570; 84153; 84156

== ENCOUNTER → 2024-07-05 | Outpatient (CLI) | payer MEDICARE, SELFPAY ==
[2024-07-05 12:15] LABS: Absolute Lymphocyte Count 1.77 X10^3/uL (0.83-4.51); Absolute Neutrophil Count 5.4 X10^3/uL (2.0-7.7); Basophil# 0.04 X10^3/uL; Basophil% 0.5 % (0-1); Eosinophil# 0.28 X10^3/uL; Eosinophils% 3.5 % (0-5); Hematocrit 43.7 % (40-54); Hemoglobin 14.6 g/dL (13.0-16.5); Lymphocyte # 1.77 X10^3/ul (0.83-4.51); Mean Corp Hgb Conc 33.4 g/dL (32-36); Mean Corpuscular Hgb 30.4 pg (27.0-32.0); Mean Platelet Vol. 10.6 fl (6.2-12.0); Monocyte% 6.2 % (0-10); NRBC Flagged by Analyzer 0 % (0-5); Neutrophil % 67.2 % (47-70); Platelet Count 215 K/mm3 (150-450); RBC Distribution Width CV 14.8 % (11.6-14.6); RBC Distribution Width SD 49.6 fl (35.1-43.9)
[2024-07-05 12:33] LABS: ALB/GLOB Ratio 0.8 RATIO (0.9-2.4); AST(SGOT) 18 U/L (15-37); Alanine Aminotransfer ALT/SGPT 20 U/L (16-61); Albumin, Serum 3.3 g/dL (3.2-5.0); Alkaline Phosphatase 79 U/L (45-117); Anion Gap 7 (5-15); BUN 21 mg/dL (7-18); BUN/Creat Ratio 12.2 RATIO (10-20); Calcium,Total 8.9 mg/dL (8.5-10.1); Chloride 104 mmol/L (98-107); Cholesterol 127 mg/dL (200); Creatinine, Serum 1.72 mg/dL (0.70-1.30); EST Glomerular Filtration Rate 42 mL/min (>60); Est Glom Filt Rate - Afr Amer 51 mL/min (>60); Globulin 4.1 g/dL (2.2-4.2); Glucose 106 mg/dL (74-106); High Density Lipoprotein 39 mg/dL; Potassium 3.4 mmol/L (3.5-5.1); Protein, Total 7.4 g/dL (6.4-8.2); Sodium Level 138 mmol/L (136-145); Triglycerides 88 mg/dL; Very Low Density Lipoprotein 18 mg/dL (5-40)
[2024-07-05 12:55] LABS: Vitamin D,25 Hydroxy 23.8 ng/mL
== END | disposition home or self-care (01) ==
LOC: BIMLAB 10:13
PROVIDERS: PCP Physician Assistant; Visit Provider Physician Assistant
DX: E66.9 Obesity, unspecified (principal); I10 Essential (primary) hypertension; E55.9 Vitamin D deficiency, unspecified
CPT/HCPCS: 36415; 80053; 80061; 82306; 85025

== ENCOUNTER → 2025-02-13 | Outpatient (CLI) | payer MEDICARE, SELFPAY | END | disposition home or self-care (01) | PROVIDERS: PCP Physician Assistant; Referring Provider Physician Assistant; Visit Provider Physician Assistant | DX: M79.89 Other specified soft tissue disorders (principal); I70.92 Chronic total occlusion of artery of the extremities | CPT/HCPCS: 93971 ==

== ENCOUNTER → 2025-04-30 | Outpatient (CLI) | payer MEDICARE, SELFPAY ==
--- NOTE | 2025-04-30 07:41 | VDLE_ITS ---
Reason For Study Reason For Study: HX LLE DVT RIGHT LEFT CFV is compressible, spontaneous, phasic, competent GSV is normal. and demonstrates normal augmentation. CFV is compressible, spontaneous, phasic, competent Procedure and demonstrates normal augmentation. This is a venous duplex using B-mode, color flow and Acute deep vein thrombosis is noted in the FV. It is spectral Doppler. dilated and NONCOMPRESSIBLE. Exam performed in department. Acute deep vein thrombosis is noted in the POP V. It The exam was diagnostic. is dilated and NONCOMPRESSIBLE. COMPARE TO STUDY 02/13/2025. Acute deep vein thrombosis is noted in the T/P Trunk. It is dilated and NONCOMPRESSIBLE. Gastrocnemius veins are compressible. PTV is compressible. Josr Vein is compressible. VL/Venous Duplex US, Unilateral Interpretation Summary Acute deep vein thrombosis noted in the left femoral vein, popliteal vein, tibi operoneal trunk vein. Ordering Physician: Blanca Magana Referring Physician: Bishnu Vuong Performed By: Cas Garcia RVT
== END | disposition home or self-care (01) ==
LOC: CVS 07:36
PROVIDERS: PCP Physician Assistant; Referring Provider Physician Assistant; Visit Provider Physician Assistant
DX: M79.89 Other specified soft tissue disorders (principal); I82.409 Acute embolism and thrombosis of unspecified deep veins of unspecified lower extremity
CPT/HCPCS: 93971

== ENCOUNTER → 2025-08-08 | Outpatient (CLI) | payer MEDICARE, SELFPAY ==
--- NOTE | 2025-08-08 09:21 | VDLE_ITS ---
Reason For Study Reason For Study: Left leg swelling RIGHT LEFT CFV is compressible, spontaneous, phasic, competent GSV is normal. and demonstrates normal augmentation. CFV is compressible, spontaneous, phasic, competent, Procedure and demonstrates normal augmentation. This is a venous duplex using B-mode, color flow and FV prox is partially NONCOMPRESSIBLE with minimal spectral Doppler. venous flow noted. Exam performed in department. FV mid is NONCOMPRESSIBLE with no venous flow noted. Compared to 04/30/2025. FV distal is partially compressible with venous flow noted PopV is partially compressible with normal venous flow noted. T/P trunk is partially NONCOMPRESSIBLE with minimal venous flow noted. PTV is compressible. LT PerV is compressible. VL/Venous Duplex US, Unilateral Interpretation Summary Subacute/Chronic deep vein thrombosis noted in the left femoral vein, popliteal vein, tibioperoneal trunk vein. Improved from prior study. Ordering Physician: Blanca Magana Referring Physician: Bishnu Vuong Performed By: Aparna Carlos RVT
--- OUTSIDE RECORDS SUMMARY | 2025-08-08 09:36 | XMS RPT_ITS | CCD ---
Author Organization [facility] Care Team Providers Care Regulatory Compliance Officer Name Role Phone Unavailable Primary Care Provider Roberto Barber MD, Shahana Buchanan Primary Care Provider [phone] Care Physician, No Primary Primary Care Provider Unavailable Dr. Tyrell Beltran Emergency Provider [phone] Dr. Adis Guzman Admit Provider Dr. Adis Hernandez Referring Provider Unavail Dr. Adis Mora Other Provider UnavailDr. Keith Salas Attending Provider Dr. Keith Hernandez Other Provider Dr. Marco Parker Other Provider [phone] All Robbins Other Provider Dr. Keenan Mars Other Provider Dr. Gordon Mackenzie Other Provider Dr. Deven Mena Other Provider [phone] Paras Mackenzie Other Provider KEARA Ambrosio Other Provider [phone] KEARA Petty Other Provider CARIN Richardson Other Provider CARIN Franklin Other Provider PHYSICIAN, NONE Attending Unavailable PHYSICIAN, NONE Primary Care Unavailable Dr. Debora Lipscomb Primary Care Provider Dr. Darren Ortiz Attending Provider [phone] Adis Guzman Referring Provider Unavail able Care Physician, No Primary Referring Provider Un available Giuseppe, DIRECTOR CAMP-C Gabriela Attending Provider Dr. Debora Lipscomb Primary Care Provider Dr. Darren Ortiz Attending Provider Dr. Adis Guzman Referring Provider Unavail able Care Physician, No Primary Primary Care Provider Unavailable Dr. Tyrell Beltran Emergency Provider Dr. Adis Guzman Admit Provider Unavailabl e Dr. Adis Guzman Other Provider Unavailabl e Dr. Keith Hernandez Attending Provider Dr. Keith Hernandez Other Provider Dr. Marco Parker Other Provider [phone] Dr. All Robbins Other Provider [phone] Dr. Keenan Mars Other Provider [phone] Gordon Mackenzie Other Provider [phone] Dr. Deven Mena Other Provider Dr. Paras Mackenzie Other Provider [phone] KEARA Ambrosio Other Provider KEARA Petty Other Provider CARIN Richardson Other Provider [phone] Suzanna SARAH PAAnnamarie Ling Other Provider [phone] Care Physician, No Primary Referring Provider Un available MATTHEW Chin-C Gabriela Attending Provider Dr. Debora Lipscomb Referring Provider Shahana Barber MD Primary Care Provider [phone] Pete SHRIMPING BOAT CAPTAIN.TARA, Ochoa Unavailable OCHOA FREEMAN Attending Unavailable SHAHANA BARBER Primary Care Unavailable Bishnu Doshi Primary Care Provider Bishnu Doshi Attending Provider Bishnu Doshi Referring Provider Kalyan RIVAS, Dr. Parker Attending Provider Magana PA, Blanca Attending Provider [phone] Bishnu Doshi Primary Care Physician Carolann SARAH, Bishnu Attending Physician Kalyan RIVAS, Dr. Parker Attending Physician Magana PA, Blanca Attending Physician Magana PA, Blanca Referring Provider [phone] Magana, Blanca Attending Unavailable Magana, Blanca Referring Unavailable Wayt PA, Bishnu Primary Care Unavailable Magana, Blanca Attending Unavailable Wayt PA, Bishnu Referring Unavailable Wayt PA, Bishnu Primary Care Unavailable Magana, Blanca Referring Unavailable Wayt PA, Bishnu Primary Care Unavailable Keith Biggs Attending Unavailable Wayt PA, Bishnu Referring Unavailable Wayt PA, Bishnu Primary Care Unavailable Keith Biggs Attending Unavailable Wayt PA, Bishnu Referring Unavailable Magana, Blanca Attending Unavailable Wayt PA, Bishnu Primary Care Unavailable Wayt PA, Bishnu Attending Unavailable Ferullo, Gabriela Primary Care Unavailable Ferullo, Gabriela Referring Unavailable Wayt PA, Bishnu Referring Unavailable Wayt PA, Bishnu Primary Care Unavailable Wayt PA, Bishnu Attending Unavailable Wayt PA, Bishnu Attending Unavailable Wayt PA, Bishnu Primary Care Unavailable Wayt PA, Bishnu Referring Unavailable Wayt PA, Bishnu Primary Care Unavailable Wayt PA, Bishnu Attending Unavailable Medications Current Medications Medication Drug Class(es) Dates Sig (Normalized) Sig (Original) apixaban 5 mg oral tablet (3 sources) Factor Xa Inhibitor Start: 5 take 1 tablet by mouth once blood pressure monitor (4 sources) Start: 5 blood pressure monitor Active 0 .Route .MEDSUPPLY 1 0 January 15, 2025 12:00am Hypertension Essential (primary) hypertension Hypertension Automatic blood pressure monitor with adult arm/biceps cuff. hydroCHLOROthiazide 25 mg oral tablet (1 source) Thiazide Diuretic Start: 3 End: 4 take 1 tablet by mouth once daily hydroCHLOROthiazide 25 mg tablet Take 1 tablet by mouth once daily. 30 tablet 2 06/05/2023 09/03/2023 Active Comment on above: Take 1 tablet by jaiden th once daily. hydroCHLOROthiazide 25 mg / lisinopril 20 mg oral tablet (20 sources) Thiazide Diuretic, Angiotensin Converting Enzyme Inhibitor Start: take 1 tablet by mouth once daily Lisinopril-Hydrochloro thiazide Active 1 TABLET PO DAILY November 27, 2023 12:00am Start: 08-03-2023 End: 11-27-2023 Lisinopril-Hydrochlorothiazi de 10-12.5 mg tablet Discontinued 1 {tbl} PO DAILY August 03, 2023 1:00am November 27, 2023 1:06pm htn Start: 08-03-2023 End: 11-27-2023 take 1 tablet by mouth once daily Lisinopril-Hydrochlorothiazide Discontin ued 1 TABLET PO DAILY August 03, 2023 1:00am November 27, 2023 1:06pm Start: 06-26-2023 End: 04-17-2025 Start: 05-01-2023 End: 06-05-2023 take 10-12.5 mg by mouth once in the morning lisinopril-hydroCHLOROthiazide (ZESTORET IC) 10-12.5 mg per tablet Indications: Hypertension, essential Take 2 tablets by mouth every morning. 30 tablet 0 06/01/2023 06/05/2023 Discontinued (Changing Therapy/Dosage Form) Comment on above: Take 1 tablet by jaiden th every morning. Take 2 tablets by mo uth every morning. Completed/Discontinued Medications Medication Drug Class(es) Dates Sig (Normalized) Sig (Original) acetaminophen 500 mg oral tablet (8 sources) Start: 08-04-2023 End: 08-28-2023 take 2 tablets by mouth every eight hours as needed for pain Acetaminophen 500 mg Tablet Discontinued 1000 mg PO EVERY 8 HOURS as needed for fever or pain August 04, 2023 2:15pm August 28, 2023 3:06pm Start: 08-04-2023 End: 08-28-2023 take 1000 mg by mouth every eight hours Acetaminophen Discontinued 1000 MG PO EVERY 8 HOURS August 04, 2023 2:15pm August 28, 2023 3:06pm acetaminophen 325 mg / HYDROcodone bitartrate 5 mg oral tablet (9 sources) Opioid Agonist Start: 09-03-2013 End: 08-03-2023 Hydrocodone-Acetaminophen 1 TABLET tablet Discontinued 2 {tbl} PO EVERY 6 HOURS NEEDED as needed for Pain September 03, 2013 1:00am August 03, 2023 1:10am Start: 09-03-2013 End: 08-03-2023 take 2 tablets by mouth every six hours as needed Hydrocodone-Acetaminophen Discontinued 2 TABLET PO EVERY 6 HOURS NEEDED September 03, 2013 1:00am August 03, 2023 1:10am aspirin 81 mg delayed release oral tablet (7 sources) Platelet Aggregation Inhibitor, Nonsteroidal Anti-inflammatory Drug Start: 08-28-2023 End: 11-27-2023 Aspirin 81 mg tablet,delayed release (DR/EC) Discontinued mg PO August 28, 2023 1:00am November 27, 2023 1:06pm Start: 08-28-2023 End: 11-27-2023 Aspirin Discontinued MG PO J an2023 1:00am November 27, 2023 1:06pm Blood Pressure Monitor (9 sources) Start: 05-03-2023 End: 10-02-2023 Blood Pressure Monitor Indic ations: Hypertension, essential 1 Each once daily. 1 Each 0 05/03/2023 10/02/2023 Discontinued (Course of therapy completed) Start: 05-03-2023 Blood Pressure Monitor Indications: Hypertension, essential 1 Each once daily. 1 Each 0 05/03/2023 Active Start: 05-03-2023 End: 05-03-2023 Blood Pressure Monitor 1 Eac h once daily. 1 Each 0 05/03/2023 05/03/2023 Discontinued Comment on above: 1 Each once daily. clindamycin 300 mg oral capsule (9 sources) Lincosamide Antibacterial Start: 09-03-19 14 End: 08-03-20 take 1 capsule by mouth every six hours Clindamycin Hcl (Cleocin Hcl) 300 MG capsule Discontinued 300 mg PO EVERY 6 HOURS 30 September 03, 2013 1:00am August 03, 2023 1:10am lisinopril 20 mg oral tablet (1 source) Angiotensin Converting Enzyme Inhibitor Start: 06-05-20 take 1 tablet by mouth once daily lisinopril (ZESTRIL) 20 mg tablet Take 1 tablet by mouth once daily. 30 tablet 2 06/05/2023 Active Comment on above: Take 1 tablet by jaiden th once daily. Lisinopril-HCTZ (5 sources) Start: 11-27-19 End: 11-27-19 Lisinopril-HCTZ Discontinued PO 1 time daily November 27, 2023 12:00am November 27, 2023 1:29pm Lisinopril- HCTZ 20-25mg po daily Miscellaneous Medical Supply (BLOOD PRESSURE CUFF) (11 sources) Start: 05-03-20 End: 10-02-19 Miscellaneous Medical Supply (BLOOD PRESSURE CUFF) Indications: Hypertension, essential 1 Each once daily. 1 Each 0 05/03/2023 10/02/2023 Discontinued (Course of therapy completed) Start: 05-03-2023 Miscellaneous Medical Supply (BLOOD PRESSURE CUFF) Indications: Hypertension, essential 1 Each once daily. 1 Each 0 05/03/2023 Active Start: 05-01-2023 End: 05-03-2023 Miscellaneous Medical Supply (BLOOD PRESSURE CUFF) Indications: Hypertension, essential 1 Each once daily. 1 Each 0 05/01/2023 05/03/2023 Discontinued Start: 05-01-2023 Miscellaneous Medical Supply (BLOOD PRESSURE CUFF) Indications: Hypertension, essential 1 Each once daily. 1 Each 0 05/01/2023 Active Comment on above: 1 Each once daily. naproxen 500 mg oral tablet (9 sources) Nonsteroidal Anti-inflammatory Drug Start: 07-04-20 13 End: 09-03-19 14 take 1 tablet by mouth twice daily as needed for pain Naproxen 500 MG tablet Discontinued 500 mg PO TWICE DAILY NEEDED as needed for Pain July 04, 2013 1:00am September 03, 2013 2:39pm oxyCODONE hydrochloride 5 mg oral tablet (8 sources) Opioid Agonist Start: 08-04-20 End: 08-28-19 take 1 tablet by mouth every six hours as needed for pain Oxycodone 5 mg tablet Discontinued 5 mg PO EVERY 6 HOURS as needed for pain (scale score 7-10) 12 3 0 August 04, 2023 August 28, 2023 3:06pm Status post hip hemiarthroplasty Presence of unspecified artificial hip joint penicillin v potassium 250 mg oral tablet (9 sources) Start: 07-04-20 13 End: 09-03-19 14 Penicillin V Potassium 250 MG tablet Discontinued 500 mg PO TWICE A DAY July 04, 2013 1:00am September 03, 2013 2:39pm Start: 07-04-2013 End: 09-03-2013 take 500 mg by mouth twice daily Penicillin V Potassium Discontinued 500 MG PO TWICE A DAY July 04, 2013 1:00am September 03, 2013 2:39pm Problems Active Problems Problem Classification Problem Date Documented Da te Episodic/Chronic Acute and unspecified renal failure (17 sources) Acute renal failure syndrome; Translations: [Acute kidney failure, unspecified] 08-03-2023 Episodic Calculus of urinary tract (11 sources) Kidney stone; Translations: [Calculus of kidney] 09-18-2023 Episodic Cataract (2 sources) Bilateral cataracts; Translations: [Unspecified cataract] 06-05-2023 Chronic Chronic kidney disease (10 sources) Chronic kidney disease stage 3; Translations: [Stage 3 chronic kidney disease] 11-29-2023 Chronic Chronic kidney disease (1 source) Chronic kidney disease; Translations: [Chronic kidney disease, stage 3b] Onset: 02-13-2025 Diabetes mellitus without complication (6 sources) Prediabetes; Translations: [Prediabetes] 11-27-2023 Episodic Disorders of lipid metabolism (8 sources) Hypertriglyceridemia ; Translations: [Pure hyperglyceridemia] 05-08-2023 Chronic Essential hypertension (20 sources) Essential hypertension; Translations: [Essential (primary) hypertension] Onset: 02-13-2025 05-03-2023 Chronic Comment on above: Goal SBP <120 Fluid and electrolyte disorders (14 sources) Hypokalemia; Translations: [Hypokalemia] 08-03-2023 Episodic Fracture of neck of femur (hip) (14 sources) Fracture of neck of femur; Translations: [Fracture of unspecified part of neck of left femur, initial encounter for closed fracture] 08-03-2023 Episodic Nutritional deficiencies (1 source) Vitamin D deficiency, unspecified; Translations: [Vitamin D deficiency, unspecified] Onset: 07-05-2024 Chronic Other connective tissue disease (8 sources) History of repair of hip joint; Translations: [Presence of unspecified artificial hip joint] 08-04-2023 Chronic Other connective tissue disease (4 sources) Presence of unspecified artificial hip joint; Translations: [Hip joint replacement] 08-04-2023 Chronic Other connective tissue disease (7 sources) History of total hip arthroplasty; Translations: [Presence of left artificial hip joint] 08-28-2023 Chronic Other connective tissue disease (3 sources) Presence of left artificial hip joint; Translations: [Hip joint replacement] 08-28-2023 Chronic Other connective tissue disease (8 sources) Swelling of lower leg; Translations: [Other specified soft tissue disorders] 02-13-2025 Episodic Other connective tissue disease (1 source) Other specified soft tissue disorders; Translations: [Other specified soft tissue disorders] Onset: 05-13-2025 Episodic Other diseases of kidney and ureters (11 sources) Cyst of kidney; Translations: [Cyst of kidney, acquired] 09-18-2023 Episodic Other diseases of kidney and ureters (1 source) Cyst of kidney, acquired; Translations: [Cystic kidney disease, unspecified] 11-27-2023 Episodic Other nutritional; endocrine; and metabolic disorders (9 sources) Obese class I; Translations: [Obesity, unspecified] 08-03-2023 Chronic Other nutritional; endocrine; and metabolic disorders (3 sources) Obesity, unspecified; Translations: [Obesity, unspecified] Onset: 08-05-2024 08-03-2023 Chronic Other nutritional; endocrine; and metabolic disorders (4 sources) Obesity; Translations: [Obesity, unspecified] 04-04-2024 Chronic Peripheral and visceral atherosclerosis (1 source) Chronic total occlusion of artery of the extremities; Translations: [Chronic total occlusion of artery of the extremities] Onset: 02-13-2025 Chronic Phlebitis; thrombophlebitis and thromboembolism (6 sources) Acute deep vein thrombosis of lower limb; Translations: [Acute embolism and thrombosis of unspecified deep veins of unspecified lower extremity] 02-13-2025 Episodic Residual codes; unclassified (7 sources) Tobacco use and exposure - finding; Translations: [Tobacco use] 08-28-2023 Episodic Residual codes; unclassified (4 sources) Tobacco use; Translations: [Tobacco use disorder] 08-28-2023 Episodic Residual codes; unclassified (5 sources) Cardiovascular event risk; Translations: [Other specified personal risk factors, not elsewhere classified] 11-27-2023 Episodic Residual codes; unclassified (1 source) Other specified personal risk factors, not elsewhere classified; Translations: [Other specified conditions influencing health status] 11-27-2023 Episodic Substance-related disorders (9 sources) Tobacco dependence syndrome; Translations: [Nicotine dependence, unspecified, uncomplicated] Onset: 07-05-2024 04-04-2024 Chronic Unclassified (3 sources) High prostate specific antigen (PSA) Unclassified (3 sources) Renal cyst Unclassified (4 sources) R97.20 - Elevated prostate specific antigen [PSA],N28.1 - Cyst of kidney, acquired,N20.0 - Calculus of kidney Unclassified (2 sources) Acute deep vein thrombosis (DVT) of lower extremity Unclassified (3 sources) I82.409 - Acute embolism and thrombosis of unspecified deep veins of unspecified lower extremity Past or Other Problems Problem Classification Problem Date Documented Da te Episodic/Chronic Other screening for suspected conditions (not mental disorders or infectious disease) (20 sources) Serum creatinine raised; Translations: [Other specified abnormal findings of blood chemistry] Onset: 02-13-2025 05-08-2023 Episodic Results Test Name Value Interpretation Reference Range Facility MR/Solitario 06-13-2025 MR/BMSGINA [facility] [address] [place] [address] OFFICE VISIT Date of Service: 06/13/25 MR#: [id number] Acct: [id number] Name: MYLES LEON Rep #: [id number] : 1955 Provider: KEARA Alonso Age/Sex: 70/M Location: [facility] Status: Signed Intake Vital Signs 02/13/25 13:37 06/13/25 10:15 Height 5 ft 10 in 5 ft 10 in Weight: 242 lb BMI 34.7 BP 147/91 H Blood Pressure Location Lt brachial Position Sitting Respiration 18 Pulse 89 Pulse Source NIBP Temp 98.2 F Temp Source Temporal Pulse Oximetry (%) 96 Oxygen Delivery Method room air Intake Visit Reasons: Discuss results Rn Night Required: No Accompanied by: Self Is patient in pain?: No Allergies No Known Allergies Allergy (Verified 06/13/25 10:16) Medications ???Medication ???Instructions ???Recorded ???Confirmed ???Type blood pressure monitor #1 ea 01/15/25 02/26/25 Rx apixaban 5 mg (74 tabs) tablets in 5 mg PO ONCE #74 tabs 02/13/25 1 Rx a dose pack (Eliquis DVT-PE Treat 30D Start) lisinopril 20 1 tab PO DAILY #90 tabs 04/17/25 1 Rx mg-hydrochlorothiazid e 25 mg tablet rivaroxaban 20 mg tablet (Xarelto) 20 mg PO QDAY #30 tabs 06/13/25 06/13/25 Rx Have you fallen in the past year?: No PFSH Medical History IFG (impaired fasting glucose) ARCHANA (acute kidney injury) Obesity (BMI 30.0-34.9) Essential hypertension Hypertension Surgical History History of repair of left hip joint Social History Smoking Status: Light Smoker (<10/day) alcohol intake: never substance use type: does not use what type of physical activity do you participate in: none HPI HPI HPI: MYLES LEON, is a 70 M who presents to the office today for follow-up of 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 He has been on Eliquis and so far completed about 3 months of therapy. He had repeat duplex 05/05/25 which showed persistent DVT. Unfortunately, the Eliquis is not well covered under his insurance and is very expensive. He tried to get into various financial assistance programs but was unsuccessful. As a consequence, he does admit he has only been taking the Eliquis once a day sometimes to make it last. Fortunately, his LLE edema and pain have fully resolved. He has no complaints in that regard. ROS General General: No weight change, appetite, fatigue, colon cancer, breast cancer or weakness HEENT HEENT: No difficulty swallowing, eye injury, eye surgery, swollen glands or hoarseness Endo Endocrine: No thyroid disease, diabetes mellitus, thyroid cancer, Hair loss, heat intolerance or cold intolerance Skin Skin: No rash or changing moles Musc Musculoskeletal: Yes back problems; No arthritis, rheumatoid arthritis, gout or joint pain Cardio Cardiovascular: Yes high blood pressure; No murmur, pacemaker, heart disease, atrial fibrillation, heart attack, heart stent, palpitations, shortness of breath with exertion or chest pain Psych Psychiatric: No depression, anxiety or hearing voices Resp Respiratory: No shortness of breath, No sleep apnea, Yes cough, No COPD, No asthma, No emphysema and No wheezing Gastro Gastrointestinal: No abdominal pain, No nausea or vomiting, No diarrhea, No constipation, No blood in stool, No acid reflux, No hemorrhoids, No ulcers, No gallbladder problem and No black,tarry stools Ramon Hematologic: Yes blood thinners, No blood disorders, No bleeding, No anemia and Yes blood clots Neuro Neurologic: No system reviewed and no additional complaints, except as documented, No as per HPI, No abnormal gait, No abnormal hearing, No abnormal movements, No abnormal speech, No behavioral changes, No burning sensations, No confusion, No convulsions, No disequilibrium, Yes dizziness, No localized weakness, No frequent falls, No headache(s), No lack of coordination, No loss of vision, No memory loss, No numbness, No other visual disturbances, No radicular pain, No restless legs, No sensory deficit, No syncope, No tingling, No tremor(s), No weakness and No other Exam Const General: cooperative, comfortable and no acute distress Nutritional Appearance: obese Orientation: alert, awake and oriented x3 HENMT Head: normocephalic and atraumatic Ears: hearing grossly normal bilaterally and external ears normal Nose: external nose normal Eyes General: appearance normal, both eyes and all related structures Neck Neck: normal visual inspection Resp Effort Inspection: normal respiratory effort, able to speak in complete sentences, no grunting, not (more content not included)... Normal [facility] Venous duplex ultrasound rep ortOrdered By: Keith Biggs on 05-05-2025 US Vein [facility] [address] [place] [address] Venous Duplex US, Unilateral 04/30/25 0813 MR#: [id number] Acct: [id number] Name: MYLES LEON Rep #:[id number] : 1955 69 From: Keith Harman Attending Dr: KEARA Alonso Stat us: REG CLI Ordering Dr: Blanca Magana Date: Location: [facility] Sex: M C Admitted: Reason For Study Reason For Study: HX LLE DVT RIGHT LEFT CFV is compressible, spontaneous, phasic, competent GSV is normal. and demonstrates normal augmentation. CFV is compressible, spontaneous, phasic, competent Procedure and demonstrates normal augmentation. This is a venous duplex using B-mode, color flow and Acute deep vein thrombosis is noted in the FV. It is spectral Doppler. dilated and NONCOMPRESSIBLE. Exam performed in department. Acute deep vein thrombosis is noted in the POP V. It The exam was diagnostic. is dilated andNONCOMPRESSIBLE. COMPARE TO STUDY 02/13/2025. Acute deep vein thrombosis is noted in the T/P Trunk. It is dilated and NONCOMPRESSIBLE. Gastrocnemius veins are compressible. PTV is compressible. Josr Vein is compressible. VL/Venous Duplex US, Unilateral Interpretation Summary Acute deep vein thrombosis noted in the left femoral vein, popliteal vein, tibioperoneal trunk vein. Ordering Physician: Blanca Magana Referring Physician: Bishnu Vuong Performed By: Cas Garcia, T 05/05/25 1223 Date _ Keith Biggs MD CC: KEARA Alonso; KEARA Reyes ~ Date Dictated: 04/30/2513 Date Transcribed: 05/05/25 122 Cheese Pancake Roller: Signed [facility] Work Phone: Venous Duplex US, Unilateral on 04-30-2025 Venous Duplex US, Unilateral [facility] [address] [place] [address] Venous Duplex US, Unilateral 04/30/25 0813 MR#: [id number] Acct: [id number] Name: MYLES LEON Rep #: [id number] : 1955 69 From: Keith Biggs MD Attending Dr: KEARA Alonso Status: REG CLI Ordering Dr: Blanca Magana Date: 04/30/25 Location: [facility] Sex: M C Admitted: Reason For Study Reason For Study: HX LLE DVT RIGHT LEFT CFV is compressible, spontaneous, phasic, competent GSV is normal. and demonstrates normal augmentation. CFV is compressible, spontaneous, phasic, competent Procedure and demonstrates normal augmentation. This is a venous duplex using B-mode, color flow and Acute deep vein thrombosis is noted in the FV. It is spectral Doppler. dilated and NONCOMPRESSIBLE. Exam performed in department. Acute deep vein thrombosis is noted in the POP V. It The exam was diagnostic. is dilated and NONCOMPRESSIBLE. COMPARE TO STUDY 02/13/2025. Acute deep vein thrombosis is noted in the T/P Trunk. It is dilated and NONCOMPRESSIBLE. Gastrocnemius veins are compressible. PTV is compressible. Josr Vein is compressible. VL/Venous Duplex US, Unilateral Interpretation Summary Acute deep vein thrombosis noted in the left femoral vein, popliteal vein, tibioperoneal trunk vein. Ordering Physician: Blanca Magana Referring Physician: Bishnu Vuong Performed By: Cas Garcia RVT 05/05/25 1223 Date Keith Biggs MD CC: KEARA Alonso; KEARA Reyes Date Dictated: 04/30/25 0813 Date Transcribed: 05/05/25 1223 Cheese Pancake Roller: Signed Normal [facility] MR/BMS.BVShane 02-26-2025 MR/BMS.BVS [facility] [address] [place] [address] OFFICE VISIT Date of Service: 02/26/25 MR#: [id number] Acct: [id number] Name: MYLES LEON Rep #: [id number] : 1955 Provider: KEARA Alonso Age/Sex: 69/M Location: [facility] Status: Signed Intake Vital Signs 02/13/25 13:37 02/26/25 11:59 Height 5 ft 10 in Weight: 231 lb 232 lb BMI 33.1 BP 124/82 H 130/87 H Blood Pressure Location Lt brachial Rt brachial Position Sitting Sitting Respiration 16 16 Pulse 98 92 Pulse Source Monitor Monitor Temp 98.3 F 97.7 F L Temp Source Temporal Temporal Pulse Oximetry (%) 96 96 Oxygen Delivery Method room air room air Intake Visit Reasons: Deep vein thrombosis Chief Complaint: 3 M FU Is patient in pain?: No Allergies No Known Allergies Allergy (Verified 02/26/25 12:00) Medications ???Medication ???Instructions ???Recorded ???Confirmed ???Type lisinopril 20 1 tab PO DAILY #90 tabs 01/14/25 0 02/26/25 Rx mg-hydrochlorothiazid e 25 mg tablet blood pressure monitor #1 ea 01/15/25 02/26/25 Rx apixaban 5 mg (74 tabs) tablets in 5 mg PO ONCE #74 tabs 02/13/25 0 02/26/25 Rx a dose pack (Eliquis DVT-PE Treat 30D Start) Have you fallen in the past year?: Yes PFSH Medical History IFG (impaired fasting glucose) ARCHANA (acute kidney injury) Obesity (BMI 30.0-34.9) Essential hypertension Hypertension Surgical History History of repair of left hip joint Social History (Updated 02/26/25 @ 11:59 by Sierra Sebastian) Smoking Status: Light Smoker (<10/day) alcohol intake: never substance use type: does not use what type of physical activity do you participate in: none HPI HPI HPI: MYLES LEON, is a 69 M who presents to the office today for evaluation and management of LLE DVT. He reports in mid January he developed sudden swelling and discomfort in the L calf; after 24 hours the discomfort improved but and he developed progressively worsening edema until he presented to his PCP about 3 weeks later at which time a stat venous duplex was obtained 02/13/25 which demonstrated acute L DVT femoral vein, popliteal vein, gastrocnemius vein, and TP trunk vein. He was initiated on Eliquis which he reports he is tolerating well. He does have cost concerns related to this but report his PCP office is working on setting him up with copay assistance. His LLE pain has resolved. He does have persistent edema, he does not think this has improved much. He does have his legs dependent most of the day and he has not used any form of compression. Prior to the DVT, he reports the only possible provoking factor he can think of is that the day prior to pain onset he had jumped out of his son's lifted truck; he had no pain when he did so. He denies any preceding travel or other injury. He admits to a generally sedentary lifestyle; he spends most of his time sitting in a linda chair with his legs dependent. He does smoke, he reports 1/2 ppd. He denies any bloody stools, changes in his bowel movements, new/worsened cough, SOB, difficulty swallowing, hoarseness, urinary difficulties, night sweats, or other concerning symptoms. He has never had a colonoscopy or cologuard testing, this was recommended through his PCP. He had an elevated PSA, has urology referral but has not followed up on this either. He has not had his annual low dose lung CT this year; last year was unremarkable. He denies any family history of clotting disorders. ROS General General: No weight change, appetite, fatigue, colon cancer, breast cancer or weakness HEENT HEENT: No difficulty swallowing, eye injury, eye surgery, swollen glands or hoarseness Endo Endocrine: No thyroid disease, diabetes mellitus, thyroid cancer, Hair loss, heat intolerance or cold intolerance Skin Skin: No rash or changing moles Musc Musculoskeletal: Yes back problems; No arthritis, rheumatoid arthritis, gout or joint pain Cardio Cardiovascular: Yes high blood pressure; No murmur, pacemaker, heart disease, atrial fibrillation, heart attack, heart stent, palpitations, shortness of breath with exertion or chest pain Psych Psychiatric: No depression, anxiety or hearing voices Resp Respiratory: No shortness of breath, No sleep apnea, Yes cough, No COPD, No asthma, No emphysema and No wheezing Gastro Gastrointestinal: No abdominal pain, No nausea or vomiting, No diarrhea, No constipation, No blood in stool, No acid reflux, No hemorrhoids, No ulcers, No gallbladder problem and No black,tarry stools Ramon Hematologic: Yes blood thinners, No blood disorders, No bleeding, No anemia and Yes blood clots Neuro Neurologic: No system review (more content not included)... Normal [facility] Internal Medicine Office Vis ito 02-13-2025 Internal Medicine Office Visit [facility] [address] [place] [address] [place] [address] OFFICE VISIT Date of Service: 02/13/25 MR#: [id number] Acct: [id number] Name: MYLES LEON Rep #: [id number] : 1955 Provider: KEARA Reyes Age/Sex: 69/M Location: [facility] Status: Signed Intake Vital Signs 07/05/24 09:40 02/13/25 13:37 Height 5 ft 10 in 5 ft 10 in Weight: 233 lb 231 lb BMI 33.4 33.1 BP 138/84 H 124/82 H Blood Pressure Location Lt brachial Lt brachial Position Sitting Sitting Respiration 16 16 Pulse 102 H 98 Pulse Source Monitor Monitor Temp 97.7 F L 98.3 F Temp Source Temporal Temporal Pulse Oximetry (%) 97 96 Oxygen Delivery Method room air room air Intake Visit Reasons: MED FOLLOW UP Chief Complaint: 3 M FU Rn Night Required: No Is patient in pain?: No Allergies No Known Allergies Allergy (Verified 02/13/25 13:25) Medications ???Medication ???Instructions ???Recorded ???Confirmed ???Type lisinopril 20 1 tab PO DAILY #90 tabs 01/14/25 0 02/13/25 Rx mg-hydrochlorothiazid e 25 mg tablet blood pressure monitor #1 ea 01/15/25 02/13/25 Rx Have you fallen in the past year?: Yes (01/2025) Nurse's Note: Pt states 3 weeks ago he had to jump to get out of a lifted truck and landed on feet. he states that he did not feel any pain until the next day. he has had L lower extremity swelling since, and had 1 instance of a cramp that shot up and stopped in popliteal area. He states it took awhile to go away, but he is having some difficulty walking and doing ADL's. Pt has been elevating and resting. Pt states he has not tried anything else as he was told not to when he was started on lisinopril-hctz. He states it is sore when it is touched. pt has some mild +1 pitting edema in LLE calf. Pt states there is pain in popiliteal area only when touched. Pt has tried massaging. No excess warmth noted, or redness. [facility] Medical History IFG (impaired fasting glucose) ARCHANA (acute kidney injury) Obesity (BMI 30.0-34.9) Essential hypertension Hypertension Surgical History History of repair of left hip joint Social History Smoking Status: Light Smoker (<10/day) alcohol intake: never substance use type: does not use what type of physical activity do you participate in: none HPI HPI Chief Complaint: 3 M FU Details: MYLES LEON, is a 69 M who presents to the office today for f/u of his chronic conditions. Patient has no concerns or complaints at this time regarding his chronic conditions. Patient does not check his BP at home. He continues to smoke 1/2 ppd He does drink 2 cups of coffee for breakfast No ETOH He is not currently getting any exercise regularly. Patient states that 3 weeks ago he jumped out of a monster truck. He states that he didn't feel anything at the time but then the next day he noticed that he had a cramp in the calf that radiated up into the back of the knee. He states that it doesn't hurt all the time at the same time he has noticed some swelling and the swelling seems to be all the time. He has tried to stay of of this and also has tried to elevate this. He has not taken any anti-inflammatories. He denies any recent trips or travel in the past several months. No hospitalizations ROS Const Constitutional: No body ache, chills, excessive sweating, fatigue, fever(s), frequent falls, headache(s), snoring, weakness, sleep problems or change in appetite Eyes Eyes: No blurry vision, change in vision, eye pain or Light sensitivity ENT ENT: No abnormal hearing, ear or mastoid pain, tinnitus, nasal congestion, headache(s), neck pain or sore throat Resp Respiratory: No cough, shortness of breath, snoring or wheezing Cardio Cardiology: No chest pain at rest, chest pain with exertion, excessive sweating, shortness of breath, dyspnea on exertion, lightheadedness, orthopnea or palpitations Gastro GI: No abdominal pain, change in bowel habits, constipation, cramping, diarrhea, nausea/dyspepsia or vomiting Genitourinary Male: No burning urination, painful urination, urinary incontinence or urinary frequency Musc Musculoskeletal: Positive for abnormal gait, joint swelling and other; No joint pain, back pain, limited range of motion, neck pain or numbness Skin Skin: Positive for skin swelling; No dry skin, redness, lesions, itchy eyes, rash or wounds Neuro Neurology: Positive for abnormal gait; No abnormal hearing, weakness, frequent falls, headache(s), memory loss or numbness Psych Psychiatric: No anxiety, No change in appetite, No depression, No memory loss and No Thoughts of harming yourself/Others Endo Endocri (more content not included)... Normal [facility] Laboratory - Hematology and Cell countsOrdered By: Bishnu Vuong on 02-13-2025 HbA1c (Bld) [Mass fraction] 6.2 % 4.2-6.3 [facility] Venous Duplex US, Unilateral on 02-13-2025 Venous Duplex US, Unilateral [facility] [address] [place] [address] Venous Duplex US, Unilateral 02/13/25 1527 MR#: [id number] Acct: [id number] Name: MYLES LEON Rep #: [id number] : 1955 69 From: Keith Biggs MD Attending Dr: KEARA Reyes Status: REG CLI Ordering Dr: Bishnu Vuong Date: 02/13/25 Location: [facility] Sex: M C Admitted: Reason For Study Reason For Study: LLE Swelling RIGHT LEFT CFV is compressible, spontaneous, phasic, competent GSV is normal. and demonstrates normal augmentation. CFV is patent and compressible. Procedure Acute deep vein thrombosis is noted in the FV. It is This is a venous duplex using B-mode, color flow and dilated and NONCOMPRESSIBLE. spectral Doppler. Acute deep vein thrombosis is noted in the POP V. It Exam performed in department. is dilated and NONCOMPRESSIBLE. The exam was diagnostic. Acute deep vein thrombosis is noted in the A preliminary report was called and/or faxed to Gastrocn[facility]ius V. It is dilated and NONCOMPRESSIBLE. Bishnu Vuong PA @ [place]. Acute deep vein thrombosis is noted in the T/P Trunk. It is dilated and NONCOMPRESSIBLE. PTV is compressible. LT PerV is compressible. VL/Venous Duplex US, Unilateral Interpretation Summary Acute deep vein thrombosis noted in the left femoral vein, popliteal vein, gastrocnemius vein, tibioperoneal trunk vein. Ordering Physician: Bishnu Vuong Referring Physician: Bishnu Vuong Performed By: Cas Garcia, T 02/13/25 1618 Date Keith Biggs MD CC: KEARA Reyes Date Dictated: 02/13/25 1527 Date Transcribed: 02/13/25 1618 Cheese Pancake Roller: Signed Normal [facility] Venous duplex ultrasound rep ortOrdered By: Keith Biggs on 02-13-2025 US Vein [facility] [address] [place] [address] Venous Duplex US, Unilateral 02/13/25 1527 MR#: [id number] Acct: [id number] Name: MYLES LEON Rep #:[id number] : 1955 69 From: Keith Harman Attending Dr: KEARA Reyes Stat us: REG CLI Ordering Dr: Bishnu Vuong Date: 02/13/25 Location: [facility]S Sex: M C Admitted: Reason For Study Reason For Study: LLE Swelling RIGHT LEFT CFV is compressible, spontaneous, phasic, competent GSV is normal. and demonstrates normal augmentation. CFV is patent and compressible. Procedure Acute deep vein thrombosis is noted in the FV. It is This is a venous duplex using B-mode, color flow and dilated and NONCOMPRESSIBLE. spectral Doppler. Acute deep vein thrombosis is noted in the POP V. It Exam performed in department. is dilated andNONCOMPRESSIBLE. The exam was diagnostic. Acute deep vein thrombosis is noted in the A preliminary report was called and/or faxed to Gastrocnemius V. It is dilated and NONCOMPRESSIBLE. Bishnu SARAH @ [place]. Acute deep vein thrombosis is noted in the T/P Trunk. It is dilated and NONCOMPRESSIBLE. PTV is compressible. LT PerV is compressible. VL/Venous Duplex US, Unilateral Interpretation Summary Acute deep vein thrombosis noted in the left femoral vein, popliteal vein, gastrocnemius vein, tibioperoneal trunk vein. Ordering Physician: Bishnu Vuong Referring Physician: Bishnu Vuong Performed By: Cas Garcia, RVT 02/13/25 1618 Date _ Keith Biggs MD CC: KEARA Reyes ~ Date Dictated: 02/13/25 1527 Date Transcribed: 02/13/251617 Cheese Pancake Roller: Signed [facility] Work Phone: [facility] 08-01-2024 [facility] Letter Text Normal [facility] CBC W/Diff, Automatedon 06-15 Absolute Lymph 1.77 X10 3/uL Normal 0.83-4.51 [facility] Comment on above: Performed By: #### L 500.4100, L500.4050, L100.0100, L506.1000 #### [facility] [address] [place], [address] Absolute Neut 5.4 X10 3/uL Normal 2.0-7.7 [facility] Comment on above: Performed By: #### L 500.4100, L500.4050, L100.0100, L506.1000 #### [facility] [address] [place], [address] Basophils/100 WBC (Bld) 0.5 % Normal 0-1 [facility] Comment on above: Performed By: #### L 500.4100, L500.4050, L100.0100, L506.1000 #### [facility] [address] [place], [address] Eosinophils/100 WBC (Bld) 3.5 % Normal 0-5 [facility] Comment on above: Performed By: #### L 500.4100, L500.4050, L100.0100, L506.1000 #### [facility] [address] [place], [address] Erythrocyte distribution width (RBC) [Ratio] 14.8 % High 11.6-14.6 [facility] Comment on above: Performed By: #### L 500.4100, L500.4050, L100.0100, L506.1000 #### [facility] [address] [place], [address] Hematocrit (Bld) [Volume fraction] 43.7 % Normal 40-54 [facility] Comment on above: Performed By: #### L 500.4100, L500.4050, L100.0100, L506.1000 #### [facility] [address] [place], [address] Hemoglobin (Bld) [Mass/Vol] 14.6 g/dL Normal 13.0-16.5 [facility] Comment on above: Performed By: #### L 500.4100, L500.4050, L100.0100, L506.1000 #### [facility] [address] [place], [address] IG% 0.600 Normal 0.0-0.9 [facility] Comment on above: Result Comment: IG% - Immature Granulocytes (promyelocytes, myelocytes and metamyelocytes) > 1% indicates that a LEFT SHIFT is Present. Performed By: #### L 500.4100, L500.4050, L100.0100, L506.1000 #### [facility] [address] [place], [address] Lymphocytes/100 WBC (Bld) 22.0 % Normal 19-41 [facility] Comment on above: Performed By: #### L 500.4100, L500.4050, L100.0100, L506.1000 #### [facility] [address] [place], [address] MCH (RBC) [Entitic mass] 30.4 pg Normal 27.0-32.0 [facility] Comment on above: Performed By: #### L 500.4100, L500.4050, L100.0100, L506.1000 #### [facility] [address] [place], [address] MCHC (RBC) [Mass/Vol] 33.4 g/dL Normal 32-36 [facility] Comment on above: Performed By: #### L 500.4100, L500.4050, L100.0100, L506.1000 #### [facility] [address] [place], [address] MCV (RBC) [Entitic vol] 91.0 fL Normal 80-94 [facility] Comment on above: Performed By: #### L 500.4100, L500.4050, L100.0100, L506.1000 #### [facility] [address] [place], [address] Monocytes/100 WBC (Bld) 6.2 % Normal 0-10 [facility] Comment on above: Performed By: #### L 500.4100, L500.4050, L100.0100, L506.1000 #### [facility] [address] [place], [address] Neutrophils/100 WBC (Bld) 67.2 % Normal 47-70 [facility] Comment on above: Performed By: #### L 500.4100, L500.4050, L100.0100, L506.1000 #### [facility] [address] [place], [address] Nucleated RBC (Bld) [#/Vol] 0 10*3/uL Normal 0-5 [facility] Comment on above: Performed By: #### L 500.4100, L500.4050, L100.0100, L506.1000 #### [facility] [address] [place], [address] Platelet mean volume (Bld) [Entitic vol] 10.6 fL Normal 6.2-12.0 [facility] Comment on above: Performed By: #### L 500.4100, L500.4050, L100.0100, L506.1000 #### [facility] [address] [place], [address] Platelets (Bld) [#/Vol] 215 10*3/uL Normal 150-450 [facility] Comment on above: Performed By: #### L 500.4100, L500.4050, L100.0100, L506.1000 #### [facility] [address] [place], [address] RBC (Bld) [#/Vol] 4.80 10*6/uL Normal 4.6-6.2 [facility] Comment on above: Performed By: #### L 500.4100, L500.4050, L100.0100, L506.1000 #### [facility] [address] [place], [address] RDW SD 49.6 fl High 35.1-43.9 [facility] Comment on above: Performed By: #### L 500.4100, L500.4050, L100.0100, L506.1000 #### [facility] [address] [place], [address] WBC (Bld) [#/Vol] 8.0 10*3/uL Normal 4.4-11.0 [facility] Comment on above: Performed By: #### L 500.4100, L500.4050, L100.0100, L506.1000 #### [facility] [address] [place], [address] Comprehensive Metabolic Prof ilon 07-05-2024 Albumin [Mass/Vol] 3.3 g/dL Normal 3.2-5.0 [facility] Comment on above: Performed By: #### L 500.4100, L500.4050, L100.0100, L506.1000 #### [facility] [address] [place], [address] Albumin/Globulin [Mass ratio] 0.8 {ratio} Low 0.9-2.4 [facility] Comment on above: Performed By: #### L 500.4100, L500.4050, L100.0100, L506.1000 #### [facility] [address] [place], [address] ALK P 79 U/L Normal 45-117 [facility] Comment on above: Performed By: #### L 500.4100, L500.4050, L100.0100, L506.1000 #### [facility] [address] [place], [address] ALT [Catalytic activity/Vol] 20 U/L Normal 16-61 [facility] Comment on above: Performed By: #### L 500.4100, L500.4050, L100.0100, L506.1000 #### [facility] [address] [place], [address] AST [Catalytic activity/Vol] 18 U/L Normal 15-37 [facility] Comment on above: Performed By: #### L 500.4100, L500.4050, L100.0100, L506.1000 #### [facility] [address] [place], [address] Bilirubin [Mass/Vol] 0.50 mg/dL Normal 0.20-1.00 [facility] Comment on above: Result Comment: For patients on eltrombopag therapy, use of Dimension Mcgregor TBIL is not recommended. Performed By: #### L 500.4100, L500.4050, L100.0100, L506.1000 #### [facility] [address] [place], [address] BUN/CRE 12.2 RATIO Normal 10-20 [facility] Comment on above: Performed By: #### L 500.4100, L500.4050, L100.0100, L506.1000 #### [facility] [address] [place], [address] CA,Total 8.9 mg/dL Normal 8.5-10.1 [facility] Comment on above: Performed By: #### L 500.4100, L500.4050, L100.0100, L506.1000 #### [facility] [address] [place], [address] Chloride [Moles/Vol] 104 mmol/L Normal 98-107 [facility] Comment on above: Performed By: #### L 500.4100, L500.4050, L100.0100, L506.1000 #### [facility] [address] [place], [address] CO2 [Moles/Vol] 27.0 mmol/L Normal 21.0-32.0 [facility] Comment on above: Performed By: #### L 500.4100, L500.4050, L100.0100, L506.1000 #### [facility] [address] [place], [address] Creatinine [Mass/Vol] 1.72 mg/dL High 0.70-1.30 [facility] Comment on above: Result Comment: The validity of the calculated GFR GFRAA in patients over 70 years has not been determined. Clinical correlation is essential. Performed By: #### L 500.4100, L500.4050, L100.0100, L506.1000 #### [facility] [address] [place], [address] EST GFR - AA 51 mL/min Low >60 [facility] Comment on above: Result Comment: Afri can Palauan GFR Calc Performed By: #### L 500.4100, L500.4050, L100.0100, L506.1000 #### [facility] [address] [place], [address] GAP 7 Normal 5-15 [facility] Comment on above: Performed By: #### L 500.4100, L500.4050, L100.0100, L506.1000 #### [facility] [address] [place], [address] GFR/1.73 sq M.predicted among non-blacks MDRD (S/P/Bld) [Vol rate/Area] 42 mL/min/{1.73_m2} Low >60 [facility] Comment on above: Result Comment: Non- GFR Calc Performed By: #### L 500.4100, L500.4050, L100.0100, L506.1000 #### [facility] [address] [place], [address] Globulin (S) [Mass/Vol] 4.1 g/dL Normal 2.2-4.2 [facility] Comment on above: Performed By: #### L 500.4100, L500.4050, L100.0100, L506.1000 #### [facility] [address] [place], [address] Glucose [Mass/Vol] 106 mg/dL Normal 74-106 [facility] Comment on above: Result Comment: Fast ing Glucose result from 100 to 125 mg/dL suggests IMPAIRED HOMEOSTASIS per A.D.A. criteria. Performed By: #### L 500.4100, L500.4050, L100.0100, L506.1000 #### [facility] [address] [place], [address] Potassium [Moles/Vol] 3.4 mmol/L Low 3.5-5.1 [facility] Comment on above: Performed By: #### L 500.4100, L500.4050, L100.0100, L506.1000 #### [facility] [address] [place], [address] Sodium [Moles/Vol] 138 mmol/L Normal 136-145 [facility] Comment on above: Performed By: #### L 500.4100, L500.4050, L100.0100, L506.1000 #### [facility] [address] [place], [address] T PROT 7.4 g/dL Normal 6.4-8.2 [facility] Comment on above: Performed By: #### L 500.4100, L500.4050, L100.0100, L506.1000 #### [facility] [address] [place], [address] Urea nitrogen [Mass/Vol] 21 mg/dL High 7-18 [facility] Comment on above: Performed By: #### L 500.4100, L500.4050, L100.0100, L506.1000 #### [facility] [address] [place], [address] Internal Medicine Office Vis koki 07-05-2024 Internal Medicine Office Visit [facility] [address] [place] [address] [place] [address] OFFICE VISIT Date of Service: 07/05/24 MR#: [id number] Acct: [id number] Name: KEVIN LEONRICKY Patterson Rep #: [id number] : 1955 Provider: KEARA Reyes Age/Sex: 69/M Location: [facility] Status: Signed Intake Vital Signs 04/04/24 14:10 07/05/24 09:40 Height 5 ft 10 in 5 ft 10 in Weight: 225 lb 8 oz 233 lb BMI 32.3 33.4 BP 140/84 H 138/84 H Blood Pressure Location Lt brachial Lt brachial Position Sitting Sitting Respiration 16 16 Pulse 105 H 102 H Pulse Source Monitor Monitor Temp 97.6 F L 97.7 F L Temp Source Temporal Temporal Pulse Oximetry (%) 97 97 Oxygen Delivery Method room air room air Intake Visit Reasons: 3 m fu Chief Complaint: 3 M FU Rn Night Required: No Accompanied by: Self Is patient in pain?: No Allergies No Known Allergies Allergy (Verified 07/05/24 09:37) Medications ???Medication ???Instructions ???Recorded ???Confirmed ???Type lisinopril 20 1 tab PO DAILY #90 tabs 04/04/24 07/05/24 Rx mg-hydrochlorothiazid e 25 mg tablet Have you fallen in the past year?: No PFSH Medical History IFG (impaired fasting glucose) ARCHANA (acute kidney injury) Obesity (BMI 30.0-34.9) Essential hypertension Hypertension Surgical History History of repair of left hip joint Social History Smoking Status: Light Smoker (<10/day) alcohol intake: never substance use type: does not use what type of physical activity do you participate in: none HPI HPI Chief Complaint: 3 M FU Details: MYLES LEON, is a 69 M who presents to the office today for recheck of his BP. Patient does take his medications as directed although states that he he overslept today and thus has not taken his pill today. You does not check his BP at home ever. He does continue to smoke 1/2ppd at least He is a big time caffeine user with coffee through the day He does not get any regular exercise His diet is not great stating that he eats whatever he wants He marks snot drink much water at all during the day. Patient does not see shoe shiner He does not see eye doctor regularly although he states that he had cataract surgery a year ago and then early spring of this year. No changes or concerns ROS Const Constitutional: No body ache, chills, excessive sweating, fatigue, fever(s), frequent falls, headache(s), snoring, weakness or change in appetite Eyes Eyes: No blurry vision, change in vision, eye pain or Light sensitivity ENT ENT: No abnormal hearing, ear or mastoid pain, tinnitus, nasal congestion, headache(s), neck pain or sore throat Resp Respiratory: No cough, shortness of breath, snoring or wheezing Cardio Cardiology: No chest pain at rest, chest pain with exertion, excessive sweating, dyspnea on exertion, lightheadedness, orthopnea or palpitations Gastro GI: No abdominal pain, change in bowel habits, constipation, cramping, diarrhea, nausea/dyspepsia or vomiting Genitourinary Male: No burning urination, painful urination, urinary incontinence or urinary frequency Musc Musculoskeletal: No abnormal gait, joint pain, back pain, limited range of motion, muscle weakness, neck pain or numbness Skin Skin: No dry skin, redness, lesions, itchy eyes, rash or wounds Neuro Neurology: No abnormal gait, abnormal hearing, weakness, frequent falls, headache(s), memory loss or numbness Psych Psychiatric: No anxiety, No change in appetite, No depression, No memory loss and No Thoughts of harming yourself/Others Endo Endocrine: No cold intolerance, excessive sweating, fatigue, flushing, heat intolerance, increased thirst/drinking or increased hunger Aller/Imm Allergy/Immunologic: No itchy eyes, seasonal allergy symptoms, hives or wheezing Ramon/Lymp Hematologic/Lymphatic : No easy bleeding or easy bruising Exam Const General: cooperative, healthy appearing, comfortable and no acute distress Nutritional Appearance: overweight Orientation: alert, awake and oriented x3 HENKS Ears: hearing grossly normal bilaterally Neck Neck: full ROM, no lymphadenopathy, trachea midline, supple and nontender Neck mass: No Resp Effort Inspection: normal respiratory effort, able to speak in complete sentences, symmetric chest movement, normal respiratory pattern, no audible wheezes and no cough Auscultation: Bilateral: Clear to Auscultation Cardio Rhythm: regular rhythm and abnormal rhythm with ectopic beats Heart Sounds: S1 normal and no murmurs Bruits: no carotid bruits Pulses: radial pulses present bilaterally 2+ Neuro General: patient alert, patient awake, patient oriented x3 and moves all extre (more content not included)... Normal [facility] Lipid Profileon 07-05-2024 Cholesterol [Mass/Vol] 127 mg/dL Normal 200 [facility] Comment on above: Result Comment: <200 mg/dL Desirable 200-240 mg/dL Borderline >240 mg/dL High Risk Performed By: #### L 500.4100, L500.4050, L100.0100, L506.1000 #### [facility] [address] [place], [address] Cholesterol in HDL [Mass/Vol] 39 mg/dL Low [facility] Comment on above: Result Comment: The drugs N-Acetylcysteine and Metamizole may falsely depress this assay. Reference Range HDL <40 mg/dL Low HDL Cholesterol HDL >or= 60 mg/dL High HDL Cholesterol Performed By: #### L 500.4100, L500.4050, L100.0100, L506.1000 #### [facility] [address] [place], [address] Cholesterol in LDL [Mass/Vol] 70 mg/dL Normal 0-130 [facility] Comment on above: Performed By: #### L 500.4100, L500.4050, L100.0100, L506.1000 #### [facility] [address] [place], [address] Cholesterol in VLDL [Mass/Vol] 18 mg/dL Normal 5-40 [facility] Comment on above: Performed By: #### L 500.4100, L500.4050, L100.0100, L506.1000 #### [facility] [address] [place], [address] Triglyceride [Mass/Vol] 88 mg/dL Normal [facility] Comment on above: Result Comment: The drugs N-Acetylcysteine and Metamizole may falsely depress this assay. Serum Triglycerides Reference Interval Normal <150 mg/dL Borderline high 150 - 199 mg/dL High 200 - 499 mg/dL Very High > or = 500 mg/dL Performed By: #### L 500.4100, L500.4050, L100.0100, L506.1000 #### [facility] [address] [place], [address] Vitamin D,25 Hydroxyon 07-05 Vitamin D 25-OH 23.8 ng/mL Normal [facility] Comment on above: Result Comment: Miranda min D 25(OH) Status Range Deficiency <20 ng/mL (50nmol/L) Insufficiency 20 - 30 ng/mL (50 - 75 nmol/L) Sufficiency 30 - 100 ng/mL (75 - 250 nmol/L) Toxicity >100 ng/mL (>250 nmol/L) Performed By: #### L 500.4100, L500.4050, L100.0100, L506.1000 #### [facility] [address] [place], [address] CNPArely 05-08-2024 MICHA Telephone (VANCEWANAS) MYLES LEON ([id number]) 1955 M Date Time Provider Department 05/08/24 OCHOA FREEMAN During your visit today, we recorded the following information about you: Ochoa Freeman APRN.CNP 05/08/2024 3:54 PM Signed Patient is due for Medicare Wellness Exam and has not yet established care with Dr. Barber, so please schedule with him. RONNIE Solomon Mackenzee 05/08/2024 4:04 PM Signed Pt scheduled for 's first available Allergies As of Date: 05/08/2024 (Not on File) Date Reviewed: 10/02/2023 Reviewed by: Dee Dee Pulliam LPN - Fully Assessed Reason for Visit: Appointment [[id number]] Prescriptions as of 05/08/2024 - lisinopril-hydroCHLOR Othiazide (ZESTORETIC) 20-25 mg per tablet Take 1 tablet by mouth every morning. Problem List As Of Date: 05/08/2024 (None) Encounter Status:Closed by CHRIS COTO on 05/08/24 [facility] percentageOrdered B y: Gabriela Chin on 11-27-2023 Basophil percentage 4.06 ng/mL 0.0-4.0 [facility] Comment on above: This test was perfor med using the TPSA assay method for theAireon chemistry system. Values obtained with differentassay methods cannot be used interchangably.When changing PSA assays in the course of monitoring apatient, additional sequential testing should be carriedout to confirm baseline values. Chloride [Moles/Vol] 102 mmol/L 98-107 [facility] Glucose [Mass/Vol] 95 mg/dL 74-106 [facility] Potassium [Moles/Vol] 3.7 mmol/L 3.5-5.1 [facility] Sodium [Moles/Vol] 138 mmol/L 136-145 [facility] - Chemistry and C hemistry - challengeOrdered By: Gabriela Chin on 11-27-2023 CO2 [Moles/Vol] 30.0 mmol/L 21.0-32.0 [facility] Urea nitrogen/Creatinine [Mass ratio] 8.3 mg/mg 10-20 [facility] - Hematology and Cell countson 11-27-2023 HbA1c (Bld) [Mass fraction] 5.9 % 4.2-6.3 [facility] No Panel InformationOrdered By: Gabriela Chin on 11-27-2023 Estimated GFR (MDRD) Amer 52 mL/min >60 [facility] Comment on above: GFR Calc Estimated GFR (MDRD) Non-Af Amer 43 mL/min >60 [facility] Comment on above: Non- GFR Calc Serum or plasma calcium anika urement (mass/volume)Ordered By: Gabriela Chin on 11-27-2023 Calcium [Mass/Vol] 8.8 mg/dL 8.5-10.1 [facility] Serum or plasma creatinine m easurement (mass/volume)Ordered By: Gabriela Chin on 11-27-2023 Creatinine [Mass/Vol] 1.68 mg/dL 0.70-1.30 [facility] Comment on above: The validity of the calculated GFR & GFRAA in patients over 70 years has not been determined. Clinical correlation is essential. Serum or plasma urea nitroge n measurement (mass/volume)Ordered By: Gabriela Chin on 11-27-2023 Urea nitrogen [Mass/Vol] 14 mg/dL 7-18 [facility] Thin prep Papanicolaou smear with manual screeningOrdered By: Gabriela Chin on 11-27-2023 Protein (U) [Mass/Vol] 16.9 mg/dL 0.0-11.8 [facility] Thin prep Papanicolaou smear with manual screening 6 5-15 [facility] Thin prep Papanicolaou smear with manual screening 8.4 mg/L NO RANGE EST. [facility] Urine creatinine measurement (mass/volume)Ordered By: Gabriela Chin on 11-27-2023 Creatinine (U) [Mass/Vol] 190.00 mg/dL NO RANGE EST. [facility] Urine protein/creatinine mas s ratioOrdered By: Gabriela Chin on 11-27-2023 Protein/Creatinine (U) [Mass ratio] 89 mg/g CRE 0-200 [facility] CNOVon 10-02-2023 KAEL Office Visit (FPWADS ) MYLES LEON ([id number]) 1955 M Date Time Provider Department 10/02/23 3:00 PM OCHOA GALINDO FPELVISDS During your visit today, we recorded the following information about you: Pulse Blood pressure Weight Height 93/minute 125/82 103.4 kg 1.778 m Ochoa Galindo APRN.TARA 10/02/2023 4:48 PM Signed This note was created using [id number]. Subjective Myles Leon is a 68 year old male. Patient here for pre-op clearance prior to cataract surgery. Had the left eye done last fall, needs to schedule the right one. Needs additional clearance due to the recent hospitalization after breaking his hip and having surgery. Patient had quit smoking for 3 months but re-started it, smoking about 5 cigarettes per day. Patient to see new PCP in [place], [facility], Gabriela Chin. Have you or anyone in your family ever had a problem with anesthesia?No Do you have a cough/bronchitis/sinu sitis? No Have you had or have a asthma/hayfever/pneum onia?No Do you have a cold?No Have you [...] ever had high blood pressure/low blood pressure?Yes, well controlled Do you have any contagious disease or infection/HIV?No Do you have diabetes/low blood sugar?No Have you ever had thyroid problems?No Have you ever had a stroke?No Have you ever had epilepsy or had seizures?No Have you ever had kidney problems?Yes, mildly. Have you ever had liver problems/jaundice/hep atitis?No Have you ever had any gallbladder disease?No Do you drink alcoholic beverages? If so how much?No Do you smoke, or did you ever? If so, how much? For how long?Yes, re-started, currently 5/day Do you use social drugs?No ADVANCED DIRECTIVES: Does not have Do you have Health Care Surrogate?No Do you wish to select one?Yes, son Garrett Living will?(if yes, obtain copy and place on chart)Declined The history is provided by the patient. Review of Systems Constitutional: Negative for chills, fever and unexpected weight change. HENT: Negative for congestion, ear pain, hearing loss, rhinorrhea and sore throat. Eyes: Negative for visual disturbance. Respiratory: Positive for cough. Negative for shortness of breath and wheezing. Cardiovascular: Negative for chest pain, palpitations and leg swelling. Gastrointestinal: Negative for abdominal pain, constipation, diarrhea, nausea and vomiting. Endocrine: Negative for polydipsia and polyuria. Genitourinary: Negative for dysuria, frequency, hematuria, scrotal swelling, testicular pain and urgency. Musculoskeletal: Positive for arthralgias. Negative for back pain, gait problem, joint swelling, myalgias and neck pain. Skin: Negative for rash. Allergic/Immunologic: Negative for immunocompromised state. Neurological: Negative for dizziness, syncope, light-headedness and headaches. Hematological: Negative for adenopathy. Does not bruise/bleed easily. Psychiatric/Behaviora l: Negative for dysphoric mood. The patient is not nervous/anxious. PAST MEDICAL HISTORY Diagnosis Date Kidney stone PAST SURGICAL HISTORY Procedure Laterality Date LITHOTRIPSY XTRCORP SHOCK WAVE ALLERGIES Patient has no allergy information on record. MEDICATIONS lisinopril-hydroCHLOR Othiazide (ZESTORETIC) 20-25 mg per tablet Take 1 tablet by mouth every morning. FAMILY HISTORY Problem Relation Age of Onset [...] use: Never Drug use: Never Objective BP 125/82 Pulse 93 Ht 177.8 cm (5' 10) Wt 103.4 kg (227 lb 15.3 oz) BMI 32.71 kg/m? Physical Exam Vitals and nursing note reviewed. Constitutional: Appearance: He is not ill-appearing. HENT: Head: Normocephalic. Right Ear: Tympanic membrane and ear canal normal. Left Ear: Tympanic membrane and ear canal normal. Mouth/Throat: Mouth: Mucous membranes are moist. Eyes: Extraocular Movements: Extraocular movements intact. Conjunctiva/sclera: Conjunctivae normal. Pupils: Pupils are equal, round, and reactive to light. Neck: Thyroid: No thyroid mass or thyromegaly. Cardiovascular: Rate and Rhy (more content not included)... Normal [facility] Basophil percentageOrdered B y: Gabriela Chin on 08-28-2023 Bilirubin [Mass/Vol] 0.40 mg/dL 0.20-1.00 [facility] Comment on above: For patients on eltr ombopag therapy, use of Dimension Mcgregor TBIL is not recommended. Chloride [Moles/Vol] 106 mmol/L 98-107 [facility] Cholesterol [Mass/Vol] 142 mg/dL <200 [facility] Comment on above: <200 mg/dL Desirable 200-240 mg/dL Borderline >240 mg/dL High Risk Glucose [Mass/Vol] 104 mg/dL 74-106 [facility] Comment on above: Fasting Glucose resu lt from 100 to 125 mg/dL suggests IMPAIRED HOMEOSTASIS per A.D.A. criteria. Potassium [Moles/Vol] 3.6 mmol/L 3.5-5.1 [facility] Protein [Mass/Vol] 8.0 g/dL 6.4-8.2 [facility] Sodium [Moles/Vol] 137 mmol/L 136-145 [facility] Triglyceride [Mass/Vol] 235 mg/dL <199 [facility] Comment on above: The drugs N-Acetylcy steine and Metamizole may falsely depress this assay.Serum Triglycerides Reference Interval Normal <150 mg/dL Borderline high 150 - 199 mg/dL High 200 - 499 mg/dL Very High > or = 500 mg/dL Laboratory - Chemistry and C hemistry - challengeOrdered By: Gabriela Chin on 08-28-2023 ALP [Catalytic activity/Vol] 93 U/L 45-117 [facility] ALT [Catalytic activity/Vol] 26 U/L 16-61 [facility] CO2 [Moles/Vol] 25.0 mmol/L 21.0-32.0 [facility] Globulin (S) [Mass/Vol] 4.5 g/dL 2.2-4.2 [facility] Urea nitrogen/Creatinine [Mass ratio] 17.4 mg/mg 10-20 [facility] No Panel InformationOrdered By: Gabriela Chin on 08-28-2023 Estimated GFR (MDRD) Amer 51 mL/min >60 [facility] Comment on above: GFR Calc Estimated GFR (MDRD) Non-Af Amer 42 mL/min >60 [facility] Comment on above: Non- GFR Calc Prostate Specific Antigen Screen 4.48 ng/mL 0.00-4.00 [facility] Comment on above: This test was perfor med using the TPSA assay method for theEmbedded Chat chemistry system. Values obtained with differentassay methods cannot be used interchangably.When changing PSA assays in the course of monitoring apatient, additional sequential testing should be carriedout to confirm baseline values. Serum or plasma albumin anika urement (mass/volume)Ordered By: Gabriela Chin on 08-28-2023 Albumin [Mass/Vol] 3.5 g/dL 3.2-5.0 [facility] Serum or plasma albumin/glob ulin mass ratioOrdered By: Gabriela Chin on 08-28-2023 Albumin/Globulin [Mass ratio] 0.8 {ratio} 0.9-2.4 [facility] Serum or plasma calcium anika urement (mass/volume)Ordered By: Gabriela Chin on 08-28-2023 Calcium [Mass/Vol] 9.3 mg/dL 8.5-10.1 [facility] Serum or plasma cholesterol in HDL measurement (mass/volume)Ordered By: Gabriela Chin on 08-28-2023 Cholesterol in HDL [Mass/Vol] 38 mg/dL >40 [facility] Comment on above: The drugs N-Acetylcy steine and Metamizole may falsely depress this assay. Reference Range HDL <40 mg/dL Low HDL Cholesterol HDL >or= 60 mg/dL High HDL Cholesterol Serum or plasma cholesterol in VLDL measurement (mass/volume)Ordered By: Gabriela Chin on 08-28-2023 Cholesterol in VLDL [Mass/Vol] 47 mg/dL 5-40 [facility] Serum or plasma creatinine m easurement (mass/volume)Ordered By: Gabriela Chin on 08-28-2023 Creatinine [Mass/Vol] 1.72 mg/dL 0.70-1.30 [facility] Comment on above: The validity of the calculated GFR & GFRAA in patients over 70 years has not been determined. Clinical correlation is essential. Serum or plasma low density lipoprotein (LDL) cholesterol measurement (mass/volume)Ordered By: Gabriela Chin on 08-28-2023 Cholesterol in LDL [Mass/Vol] 57 mg/dL 0-130 [facility] Serum or plasma urea nitroge n measurement (mass/volume)Ordered By: Gabriela Chin on 08-28-2023 Urea nitrogen [Mass/Vol] 30 mg/dL 7-18 [facility] Thin prep Papanicolaou smear with manual screeningOrdered By: Gabriela Chin on 08-28-2023 Thin prep Papanicolaou smear with manual screening 18 U/L 15-37 [facility] Thin prep Papanicolaou smear with manual screening 6 5-15 [facility] Whole blood hemoglobin A1c/t otal hemoglobin ratio (mass fraction)Ordered By: Gabrielajagdish Chin on 08-28-2023 HbA1c (Bld) [Mass fraction] 5.6 % 3.8-5.6 [facility] Comment on above: Normal < 5.7 % Predi abetic 5.7 - 6.4 % Diabetic >or= 6.5 % Please note range changes. Absolute lymphocyte countOrd ered By: Adis Gould on 08-03-2023 Lymphocytes Auto (Unsp spec) [#/Vol] 1.11 10*3/uL 0.83-4.51 [facility] Basophil percentageOrdered B y: Adis Guold on 08-03-2023 Basophils/100 WBC (Bld) 0.2 % 0-1 [facility] Chloride [Moles/Vol] 106 mmol/L 98-107 [facility] Eosinophils/100 WBC (Bld) 0.7 % 0-5 [facility] Glucose [Mass/Vol] 117 mg/dL 74-106 [facility] Comment on above: Fasting Glucose resu lt from 100 to 125 mg/dL suggests IMPAIRED HOMEOSTASIS per A.D.A. criteria. Neutrophils (Bld) [#/Vol] 7.0 10*3/uL 2.0-7.7 [facility] Neutrophils/100 WBC (Bld) 77.9 % 47-70 [facility] Potassium [Moles/Vol] 3.7 mmol/L 3.5-5.1 [facility] Sodium [Moles/Vol] 138 mmol/L 136-145 [facility] WBC (Bld) [#/Vol] 9.0 10*3/uL 4.4-11.0 [facility] Basophil percentageOrdered B y: Keith Hernandez on 08-03-2023 Bilirubin [Mass/Vol] 1.00 mg/dL 0.20-1.00 [facility] Comment on above: For patients on eltr ombopag therapy, use of Dimension Mcgregor TBIL is not recommended. Basophil percentageOrdered B y: Tyrell Beltran on 08-03-2023 Chloride [Moles/Vol] 105 mmol/L 98-107 [facility] Glucose [Mass/Vol] 137 mg/dL 74-106 [facility] Comment on above: Fasting Glucose resu lt greater than or equal to 126 mg/dL suggests DIABETES MELLITUS per A.D.A. criteria. Potassium [Moles/Vol] 3.3 mmol/L 3.5-5.1 [facility] Comment on above: Slight Hemolysis, Re sult may be falsely increased. Sodium [Moles/Vol] 136 mmol/L 136-145 [facility] WBC (Bld) [#/Vol] 9.1 10*3/uL 4.4-11.0 [facility] Blood erythrocytes count (nu mber/volume)Ordered By: Adis Gould on 08-03-2023 RBC (Bld) [#/Vol] 4.55 10*6/uL 4.6-6.2 [facility] Blood erythrocytes count (nu mber/volume)Ordered By: Tyrell Beltran on 08-03-2023 RBC (Bld) [#/Vol] 4.80 10*6/uL 4.6-6.2 [facility] Blood hemoglobin measurement (mass/volume)Ordered By: Adis Gould on 08-03-2023 Hemoglobin (Bld) [Mass/Vol] 13.9 g/dL 13.0-16.5 [facility] Blood hemoglobin measurement (mass/volume)Ordered By: Tyrell Beltran on 08-03-2023 Hemoglobin (Bld) [Mass/Vol] 14.4 g/dL 13.0-16.5 [facility] Blood lymphocytes/100 leukoc ytesOrdered By: Adis Gould on 08-03-2023 Lymphocytes/100 WBC (Bld) 12.3 % 19-41 [facility] Blood monocytes/100 leukocyt esOrdered By: Adis Gould on 08-03-2023 Monocytes/100 WBC (Bld) 8.2 % 0-10 [facility] Blood platelet mean volumeOr dered By: Adis Gould on 08-03-2023 Platelet mean volume (Bld) [Entitic vol] 9.8 fL 6.2-12.0 [facility] Blood platelet mean volumeOr dered By: Tyrell Beltran on 08-03-2023 Platelet mean volume (Bld) [Entitic vol] 10.0 fL 6.2-12.0 [facility] Determination of erythrocyte mean corpuscular volume (MCV)Ordered By: Adis Gould on 08-03-2023 MCV (RBC) [Entitic vol] 90.8 fL 80-94 [facility] Determination of erythrocyte mean corpuscular volume (MCV)Ordered By: Tyrell Beltran on 08-03-2023 MCV (RBC) [Entitic vol] 89.6 fL 80-94 [facility] Hematocrit Auto (Bld) [Volum e fraction]Ordered By: Adis Gould on 08-03-2023 Hematocrit (Bld) [Volume fraction] 41.3 % 40-54 [facility] Hematocrit Auto (Bld) [Volum e fraction]Ordered By: Tyrell Beltran on 08-03-2023 Hematocrit (Bld) [Volume fraction] 43.0 % 40-54 [facility] Laboratory - Chemistry and C hemistry - challengeOrdered By: Keith Hernandez on 08-03-2023 ALP [Catalytic activity/Vol] 53 U/L 45-117 [facility] ALT [Catalytic activity/Vol] 33 U/L 16-61 [facility] - Chemistry and C hemistry - challengeOrdered By: Adis Gould on 08-03-2023 CO2 [Moles/Vol] 23.0 mmol/L 21.0-32.0 [facility] Urea nitrogen/Creatinine [Mass ratio] 15.0 mg/mg 06-02 [facility] - Chemistry and C hemistry - challengeOrdered By: Tyrlel Beltran on 08-03-2023 CO2 [Moles/Vol] 22.0 mmol/L 21.0-32.0 [facility] Urea nitrogen/Creatinine [Mass ratio] 14.4 mg/mg 06-02 [facility] - Hematology and Cell countsOrdered By: Adis Gould on 08-03-2023 Erythrocyte distribution width (RBC) [Entitic vol] 47.4 fL 35.1-43.9 [facility] Erythrocyte distribution width (RBC) [Ratio] 14.1 % 11.6-14.6 [facility] Immature granulocytes/100 WBC (Bld) 0.700 % 0.0-0.9 [facility] Comment on above: IG% - Immature Granu locytes (promyelocytes, myelocytes and metamyelocytes) > 1% indicates that a LEFT SHIFT is Present. MCH (RBC) [Entitic mass] 30.5 pg 27.0-32.0 [facility] Nucleated RBC/100 WBC (Bld) [Ratio] 0 % 0-5 [facility] - Hematology and Cell countsOrdered By: Tyrell Beltran on 08-03-2023 Erythrocyte distribution width (RBC) [Entitic vol] 45.0 fL 35.1-43.9 [facility] Erythrocyte distribution width (RBC) [Ratio] 13.8 % 11.6-14.6 [facility] MCH (RBC) [Entitic mass] 30.0 pg 27.0-32.0 [facility] MCHC Auto (RBC) [Mass/Vol]Or dered By: Adis Gould on 08-03-2023 MCHC (RBC) [Mass/Vol] 33.7 g/dL 32-36 [facility] MCHC Auto (RBC) [Mass/Vol]Or dered By: Tyrell Beltran on 08-03-2023 MCHC (RBC) [Mass/Vol] 33.5 g/dL 32-36 [facility] [facility] No Panel InformationOrdered By: Adis Gould on 08-03-2023 Estimated Creatinine Clearance Calc 43.71 ml/min [facility] Estimated GFR (MDRD) Amer 53 mL/min >60 [facility] Comment on above: GFR Calc Estimated GFR (MDRD) Non-Af Amer 44 mL/min >60 [facility] Comment on above: Non- GFR Calc Thyroid Stimulating Hormone (TSH) 1.59 uIU/mL 0.358-3.74 [facility] No Panel InformationOrdered By: Keith Hernandez on 08-03-2023 Vitamin D 25-Hydroxy 21.1 ng/mL [facility] Comment on above: Vitamin D 25(OH) Sta tus Range Deficiency <20 ng/mL (50nmol/L) Insufficiency 20 - 30 ng/mL (50 - 75 nmol/L) Sufficiency 30 - 100 ng/mL (75 - 250 nmol/L) Toxicity >100 ng/mL (>250 nmol/L) No Panel InformationOrdered By: Tyrell Beltran on 08-03-2023 Estimated Creatinine Clearance Calc 37.44 ml/min [facility] Estimated GFR (MDRD) Amer 44 mL/min >60 [facility] Comment on above: GFR Calc Estimated GFR (MDRD) Non-Af Amer 37 mL/min >60 [facility] Comment on above: Non- GFR Calc Platelets bldOrdered By: Denver Gould on 08-03-2023 Platelets (Bld) [#/Vol] 177 10*3/uL 150-450 [facility] Platelets bldOrdered By: Gerry Beltran on 08-03-2023 Platelets (Bld) [#/Vol] 183 10*3/uL 150-450 [facility] Serum or plasma albumin anika urement (mass/volume)Ordered By: Keith Hernandez on 08-03-2023 Albumin [Mass/Vol] 3.3 g/dL 3.2-5.0 [facility] Serum or plasma calcium anika urement (mass/volume)Ordered By: Adis Gould on 08-03-2023 Calcium [Mass/Vol] 8.9 mg/dL 8.5-10.1 [facility] Serum or plasma calcium anika urement (mass/volume)Ordered By: Tyrell Beltran on 08-03-2023 Calcium [Mass/Vol] 9.5 mg/dL 8.5-10.1 [facility] Serum or plasma creatinine m easurement (mass/volume)Ordered By: Adis Gould on 08-03-2023 Creatinine [Mass/Vol] 1.67 mg/dL 0.70-1.30 [facility] Comment on above: The validity of the calculated GFR & GFRAA in patients over 70 years has not been determined. Clinical correlation is essential. Serum or plasma creatinine m easurement (mass/volume)Ordered By: Tyrell Beltran on 08-03-2023 Creatinine [Mass/Vol] 1.95 mg/dL 0.70-1.30 [facility] Comment on above: The validity of the calculated GFR & GFRAA in patients over 70 years has not been determined. Clinical correlation is essential. Serum or plasma urea nitroge n measurement (mass/volume)Ordered By: Adis Gould on 08-03-2023 Urea nitrogen [Mass/Vol] 25 mg/dL 02-28 [facility] Serum or plasma urea nitroge n measurement (mass/volume)Ordered By: Tyrell Beltran on 08-03-2023 Urea nitrogen [Mass/Vol] 28 mg/dL 02-28 [facility] Thin prep Papanicolaou smear with manual screeningOrdered By: Keith Hernandez on 08-03-2023 Thin prep Papanicolaou smear with manual screening 28 U/L [facility] Thin prep Papanicolaou smear with manual screeningOrdered By: Adis Gould on 08-03-2023 Thin prep Papanicolaou smear with manual screening 9 12-26 [facility] Thin prep Papanicolaou smear with manual screeningOrdered By: Tyrell Beltran on 08-03-2023 Thin prep Papanicolaou smear with manual screening 9 12-26 [facility] Vital Signs Date Time Vital Sign Value Performing Clinician Jamilai tona 02-26-2025 11:59-0400 Body temperature 97.7 [degF] Bishnu SARAH Work Phone: [facility] 02-26-2025 11:59-0400 Body weight 105.23 kg Bishnu SARAH Work Phone: [facility] 02-26-2025 11:59-0400 Diastolic blood pressure 87 mm[Hg] Bishnu Vuong PA Work Phone: [facility] 02-26-2025 11:59-0400 Heart rate 92 /min Bishnu Vuong PA Work Phone: [facility] 02-26-2025 11:59-0400 Respiratory rate 16 /min Bishnu Vuong PA Work Phone: [facility] 02-26-2025 11:59-0400 SaO2% (BldA) [Mass fraction] 96 % Bishnu SARAH Work Phone: [facility] 02-26-2025 11:59-0400 Systolic blood pressure 130 mm[Hg] Bishnu Wayt PA Work Phone: [facility] 02-13-2025 13:37-0400 Body height 177.8 cm Bishnu Wayt PA Work Phone: [facility] 02-13-2025 13:37-0400 Body mass index (BMI) [Ratio] 33.1 kg/m2 Bishnu Wayt PA Work Phone: [facility] 02-13-2025 13:37-0400 Body temperature 98.3 [degF] Bishnu Wayt PA Work Phone: [facility] 02-13-2025 13:37-0400 Body weight 104.77 kg Bishnu Wayt PA Work Phone: [facility] 02-13-2025 13:37-0400 Diastolic blood pressure 82 mm[Hg] Bishnu Wayt PA Work Phone: [facility] 02-13-2025 13:37-0400 Heart rate 98 /min Bishnu Wayt PA Work Phone: [facility] 02-13-2025 13:37-0400 Respiratory rate 16 /min Bishnu Wayt PA Work Phone: [facility] 02-13-2025 13:37-0400 SaO2% (BldA) [Mass fraction] 96 % Bisnhu Wayt PA Work Phone: [facility] 02-13-2025 13:37-0400 Systolic blood pressure 124 mm[Hg] Bishnu Wayt PA Work Phone: [facility] 11-27-2023 13:07-0400 Body height 177.[address] Debora Lipscomb Work Phone: [facility] 11-27-2023 13:07-0400 Body mass index (BMI) [Ratio] 32.5 kg/m2 Dr. Debora Lipscomb Work Phone: [facility] 11-27-2023 13:07-0400 Body temperature 98.2 [degF] Dr. Debora Lipscomb Work Phone: [facility] 11-27-2023 13:07-0400 Body weight 102.[address] Debora Lipscomb Work Phone: [facility] 11-27-2023 13:07-0400 Diastolic blood pressure 78 mm[Hg] Dr. Debora Lipscomb Work Phone: [facility] 11-27-2023 13:07-0400 Heart rate 86 /min Dr. Deboar Lipscomb Work Phone: [facility] 11-27-2023 13:07-0400 Respiratory rate 17 /min Dr. Debora Lipscomb Work Phone: [facility] 11-27-2023 13:07-0400 SaO2% (BldA) [Mass fraction] 98 % Dr. Debora Lipscomb Work Phone: [facility] 11-27-2023 13:07-0400 Systolic blood pressure 130 mm[Hg] Dr. Debora Lipscomb Work Phone: [facility] 10-02-2023 15:17-0500 Body height 177.8 cm Ochoa Ralf [employer].DIRECTOR TRANSPORTATION Work Phone: [facility] 10-02-2023 15:17-0500 Body weight 103.4 kg Ochoa Ralf [employer].DIRECTOR TRANSPORTATION Work Phone: [facility] 10-02-2023 15:17-0500 Diastolic blood pressure 82 mm[Hg] Ochoa Ralf [employer].DIRECTOR TRANSPORTATION Work Phone: [facility] 10-02-2023 15:17-0500 Heart rate 93 /min Ochoa Ralf [employer].DIRECTOR TRANSPORTATION Work Phone: [facility] 10-02-2023 15:17-0500 Systolic blood pressure 125 mm[Hg] Ochoa Ralf [employer].DIRECTOR TRANSPORTATION Work Phone: [facility] 08-28-2023 14:07-0500 Body height 177.[address] Debora Lipscomb Work Phone: [facility] 08-28-2023 14:07-0500 Body mass index (BMI) [Ratio] 33.3 kg/m2 Dr. Debora Lipscomb Work Phone: [facility] 08-28-2023 14:07-0500 Body temperature 98.2 [degF] Dr. Debora Lipscomb Work Phone: [facility] 08-28-2023 14:07-0500 Body weight 105.[address] Debora Lipscomb Work Phone: [facility] 08-28-2023 14:07-0500 Diastolic blood pressure 82 mm[Hg] Dr. Debora Lipscomb Work Phone: [facility] 08-28-2023 14:07-0500 Heart rate 105 /min Dr. Debora Lipscomb Work Phone: [facility] 08-28-2023 14:07-0500 Respiratory rate 16 /min Dr. Debora Lipscomb Work Phone: [facility] 08-28-2023 14:07-0500 SaO2% (BldA) [Mass fraction] 98 % Dr. Debora Lipscomb Work Phone: [facility] 08-28-2023 14:07-0500 Systolic blood pressure 120 mm[Hg] Dr. Debora Lipscomb Work Phone: [facility] 08-04-2023 13:59-0500 Body temperature 98.3 [degF] No Primary Care Physician [facility] 08-04-2023 13:59-0500 Diastolic blood pressure 80 mm[Hg] No Primary Care Physician [facility] 08-04-2023 13:59-0500 Heart rate 81 /min No Primary Care Physician [facility] 08-04-2023 13:59-0500 Respiratory rate 16 /min No Primary Care Physician [facility] 08-04-2023 13:59-0500 SaO2% (BldA) [Mass fraction] 95 % No Primary Care Physician [facility] 08-04-2023 13:59-0500 Systolic blood pressure 133 mm[Hg] No Primary Care Physician [facility] 08-04-2023 04:24-0500 Body mass index (BMI) [Ratio] 32.1 kg/m2 No Primary Care Physician [facility] 08-04-2023 04:24-0500 Body weight 101.7 kg No Primary Care Physician [facility] 08-03-2023 17:45-0500 Inhaled oxygen flow rate 2 L/min No Primary Care Physician [facility] 08-03-2023 07:43-0500 Body height 177.8 cm No Primary Care Physician [facility] 08-03-2023 02:30-0500 Body temperature 98 [degF] [facility] 08-03-2023 02:30-0500 Diastolic blood pressure 90 mm[Hg] [facility] 08-03-2023 02:30-0500 Heart rate 95 /min [facility] 08-03-2023 02:30-0500 Respiratory rate 16 /min [facility] 08-03-2023 02:30-0500 SaO2% (BldA) [Mass fraction] 95 % [facility] 08-03-2023 02:30-0500 Systolic blood pressure 156 mm[Hg] [facility] 08-02-2023 23:59-0500 Body height 177.8 cm [facility] 08-02-2023 23:59-0500 Body mass index (BMI) [Ratio] 32.5 kg/m2 [facility] 08-02-2023 23:59-0500 Body weight 102.9 kg [facility] 06-05-2023 14:56-0400 Body height 177.8 cm Ochoa Galindo APRN.DIRECTOR TRANSPORTATION Work Phone: [facility] 06-05-2023 14:56-0400 Body weight 102.51 kg Ochoa Galindo [employer].DIRECTOR TRANSPORTATION Work Phone: [facility] 06-05-2023 14:56-0400 Diastolic blood pressure 80 mm[Hg] Ochoa Galindo [employer].DIRECTOR TRANSPORTATION Work Phone: [facility] 06-05-2023 14:56-0400 Heart rate 94 /min Ochoa Ralf [employer].DIRECTOR TRANSPORTATION Work Phone: [facility] 06-05-2023 14:56-0400 Systolic blood pressure 123 mm[Hg] Ochoa Ralf [employer].DIRECTOR TRANSPORTATION Work Phone: [facility] 05-08-2023 14:33-0400 Diastolic blood pressure 100 mm[Hg] Ochoa Ralf [employer].DIRECTOR TRANSPORTATION Work Phone: [facility] 05-08-2023 14:33-0400 Systolic blood pressure 146 mm[Hg] Ochoa Ralf [employer].DIRECTOR TRANSPORTATION Work Phone: [facility] 05-08-2023 14:21-0400 Body height 177.8 cm Ochoa Ralf [employer].DIRECTOR TRANSPORTATION Work Phone: [facility] 05-08-2023 14:21-0400 Body weight 102.51 kg Ochoa Ralf [employer].DIRECTOR TRANSPORTATION Work Phone: [facility] 05-08-2023 14:21-0400 Heart rate 76 /min Ochoa Ralf [employer].DIRECTOR TRANSPORTATION Work Phone: [facility] Encounters Encounter Date Encounter Type Care Provider Facility Start: 06-13-2025 End: 06-13-2025 ambulatory Bishnu SARAH Facility:[facility] Start: 04-30-2025 Non-patient / Non-visit Dr. Keith fernandez MD -[facility] Start: 04-30-2025 End: 04-30-2025 ambulatory Bishnu SARAH Work Phone: -Cardiovascular Services Start: 04-30-2025 End: 04-30-2025 Patient encounter procedure Blanca SARAH -Cardiovascular Services Work Phone: Start: 04-30-2025 End: 04-30-2025 ambulatory Blanca Magana Facility:[facility] Start: 02-26-2025 End: 02-26-2025 Patient encounter procedure Blanca SARAH -[facility] Work Phone: Start: 02-26-2025 End: 02-26-2025 ambulatory Bishnu Wayt PA Work Phone: -[facility] Start: 02-13-2025 Non-patient / Non-visit Dr. Keith fernandez MD -[facility] Start: 02-13-2025 End: 02-13-2025 ambulatory Bishnu Vuong PA Work Phone: -Cardiovascular Services Start: 02-13-2025 End: 02-13-2025 Patient encounter procedure Bishnu Vuong PA -Cardiovascular Services Work Phone: Start: 02-13-2025 End: 02-13-2025 Patient encounter procedure Bishnu Mact PA -[facility] Work Phone: Start: 02-13-2025 End: 02-13-2025 ambulatory Bishnu Wayt PA Work Phone: -[facility] Start: 02-13-2025 End: 02-13-2025 ambulatory Bishnu Wayt PA Facility:[facility] Start: 07-30-2024 End: 08-02-2024 ambulatory Shahana Barber MD Work Phone: Internal Medicine [place] [id number] Start: 07-05-2024 End: 07-05-2024 ambulatory Bishnu Vuong PA Facility:[facility] Start: 07-05-2024 End: 07-05-2024 ambulatory Bishnu Wayt PA Facility:[facility] Start: 05-08-2024 End: 05-08-2024 Telephone encounter Ochoa Freeman APRN.CNP Work Phone: Family Practice Comment on above: Appointment Start: 11-27-2023 End: 11-27-[address] Debora Lipscomb Work Phone: [facility] Work Phone: Start: 11-27-2023 End: 11-27-[address] Debora Lipscomb Work Phone: [facility] Work Phone: Start: 11-01-2023 ambulatory Minal Sam [facility] Comment on above: Population Health Na vigation Outreach ([employer] care gaps) Start: 10-02-2023 End: 10-02-2023 ambulatory OCHOA LOMELIMEL Facility:[facility] Start: 10-02-2023 End: 10-02-2023 Office outpatient visit 15 minutes Ochoa Galindo APRN.DIRECTOR TRANSPORTATION Work Phone: Family [facility] Comment on above: Pre-op evaluation (P rimary Dx); Cataract of right eye, unspecified cataract type Start: 10-02-2023 End: 10-02-2023 Preprocedural examination done Ochoa Gailndo APRN.DIRECTOR TRANSPORTATION Work Phone: [facility] Work Phone: Start: 09-26-2023 Refill Shahana madrigal MD Work Phone: [facility] Comment on above: Refill Request Start: 09-14-2023 End: 09-14-[address] Debora Lipscomb Work Phone: [facility] Work Phone: Start: 09-07-2023 End: 09-07-[address] Debora Lipscomb Work Phone: [facility] Work Phone: Start: 09-06-2023 End: 09-06-[address] Debora Lipscomb Work Phone: [facility] Work Phone: Start: 09-06-2023 End: 09-06-[address] Debora Lipscomb Work Phone: [facility]-Physical Therapy Work Phone: Start: 08-30-[address] Debora Lipscomb Work Phone: [facility] Work Phone: Start: 08-28-2023 End: 08-28-[address] Debora Lipscomb Work Phone: [facility] Work Phone: Start: 08-28-[address] Zahida Lipscomb Work Phone: [facility] Start: 08-28-2023 End: 08-28-2023 Encounter for general adult medical examination without abnormal findings Dr. Debora Lipscomb Work Phone: [facility] Start: 08-28-2023 End: 08-28-[address] Debora Lipscomb Work Phone: [facility] Work Phone: Start: 08-16-2023 ambulatory NONE PHYSICIAN Facility :R Start: 08-04-2023 Non-patient / Non-visit [facility] Physician [facility] Work Phone: Start: 08-03-2023 End: 08-03-2023 Non-patient / Non-visit Dr. Debora Lipscomb Work Phone: [facility] Work Phone: Start: 08-03-2023 End: 08-04-2023 Evaluation and management of inpatient [facility]-Medical Surgical 3 Work Phone: Start: 07-04-2023 Telephone encounter Shahana Barber MD Work Phone: [facility] Comment on above: pre op clearance for m ([facility]) Start: 06-27-2023 Telephone encounter Shahana Barber MD Work Phone: [facility] Comment on above: Opened In Error Start: 06-05-2023 End: 06-05-2023 Office outpatient visit 15 minutes Ochoa Galindo APRN.CNP Work Phone: [facility] Comment on above: Pre-op evaluation (P rimary Dx); Hypertension, essential; Cataract of both eyes, unspecified cataract type; Elevated serum creatinine; Hypertriglyceridemia Start: 06-05-2023 End: 06-05-2023 Preprocedural examination done Ochoa Galindo APRN.CNP Work Phone: [facility] Work Phone: Start: 06-01-2023 Refill Ochoa Galindo APRN.CNP Work Phone: [facility] Comment on above: Refill Request Start: 05-08-2023 End: 05-08-2023 Office outpatient visit 25 minutes Ochoa Galindo APRN.CNP Work Phone: [facility] Comment on above: Hypertension, essent ial (Primary Dx); Elevated serum creatinine; Elevated PSA; Hypertriglyceridemia Start: 05-03-2023 Telephone encounter Ochoa winters APRN.CNP Work Phone: [facility] Comment on above: Medication Problem Start: 05-02-2023 Telephone encounter Ochoa winters APRN.TARA Work Phone: [facility] Comment on above: Medication Problem Procedures Date Procedure Procedure Detail Performing Clinician Start: 09-14-2023 CT of abdomen and pe lvis without contrast Dr. Debora Lipscomb Work Phone: Start: 09-07-[address] Debora Lipscomb Work Phone: Start: 08-03-2023 Plain X-ray of hip No [facility] Care Physician Start: 08-03-2023 Primary uncemented hemiarthroplasty of hip No Primary Care Physician Start: 08-03-2023 Prosthetic uncemente d hemiarthroplasty of hip Dr. Debora Lipscomb Work Phone: Start: 08-03-2023 Plain chest X-ray Start: 08-03-2023 Plain X-ray of femur Start: 08-03-2023 CT cervical spine wi thout contrast Start: 08-03-2023 CT of head without contrast Start: 08-03-2023 CT of lumbar spine Start: 05-01-2023 Lipid 1996 panel - S stacia or Plasma Ochoa Galindo APRN.CNP Work Phone: Plan of Treatment Date Care Activity Detail Author Start: 08-03-2033 Urine microalbumin profile DTaP,Tdap,Td Vaccine (2 - Td or Tdap) [facility] Start: 05-01-2028 Lipid 1996 panel - Serum or Plasma Lipid Screening [facility] Start: 05-01-2028 Lipid panel Lipid Screening [facility] Start: 05-01-2028 Prostate Cancer Screening Discussion Prostate Cancer Screening Discussion [facility] Start: 05-01-2028 Prostate specific antigen measurement Prostate Cancer Screening Discussion [facility] Start: 05-01-2026 Diabetes Screening Diabetes Screening [facility] Start: 02-13-2025 Prostate specific antigen measurement [facility] Start: 02-13-2025 Thyroid stimulating hormone measurement [facility] Start: 10-02-2024 Annual PCP Team Chronic Disease Visit Annual PCP Team Chronic Disease Visit [facility] Start: 08-16-2024 End: 08-16-2024 Patient encounter procedure 08/16/2024 1:40 PM EST Office Visit Family Practice [address] [facility] [address] [place], [place] [id number] Shahana Barber MD [address] [place] [address] [place], [place] [id number] medicare wellness [facility] Comment on above: medicare wellness Start: 07-30-2024 End: 10-29-2024 Basic metabolic 2000 panel - Serum or Plasma BASIC METABOLIC PANEL Lab Routine Hypertension, essential Expected: 07/30/2024, Expires: 10/29/2024 [facility] Work Phone: Comment on above: Expected: 07/30/2024, Expires: Start: 06-05-2024 Annual PCP Team Chronic Disease Visit Annual PCP Team Chronic Disease Visit [facility] Start: 05-08-2024 Annual PCP Team Chronic Disease Visit Annual PCP Team Chronic Disease Visit [facility] Start: 11-27-2023 Patient referral [facility] Work Phone: Start: 08-14-2023 Advance Directive Discussion Advance Directive Discussion [facility] Start: 08-14-2023 Depression Assessment Depression Assessment [facility] Start: 08-04-2023 [facility] Start: 08-04-2023 Patient discharge [facility] Start: 08-04-2023 Referral to service [facility] Start: 08-04-2023 Measuring intake and output [facility] Start: 08-03-2023 Measuring intake and output [facility] Start: 08-03-2023 Measuring intake and output [facility] Start: 08-03-2023 Ambulation therapy management [facility] Start: 08-03-2023 Application of device [facility] Start: 08-03-2023 Exercises [facility] Start: 08-03-2023 Following clinical pathway protocol [facility] Start: 08-03-2023 Introduction of urinary catheter [facility] Start: 08-03-[address] [facility] Start: 08-03-2023 Patient education [facility] Start: 08-03-2023 Provision of activity privileges [facility] Start: 08-03-2023 Recommendation to continue with treatment [facility] Start: 08-03-2023 Referral to occupational therapist [facility] Start: 08-03-2023 Referral to service [facility] Start: 08-03-[address] [facility] Start: 08-03-2023 Wound care [facility] Start: 08-03-2023 [facility] Start: 08-03-2023 Measuring intake and output [facility] Start: 08-03-2023 Application of ice collar, cap or bag [facility] Start: 08-03-2023 Assessment of risk of venous thromboembolism [facility] Start: 08-03-2023 Bedrest [facility] Start: 08-03-[address] [facility] Start: 08-03-2023 Skin care [facility] Start: 08-03-2023 [facility] Start: 08-03-2023 Application of intermittent pneumatic compression device [facility] Start: 08-03-2023 Following clinical pathway protocol [facility] Start: 08-03-2023 Application of mechanical traction on skin [facility] Start: 08-03-2023 Assessment of risk of venous thromboembolism [facility] Start: 08-03-2023 Documentation procedure [facility] Start: 08-03-2023 Incentive spirometry [facility] Start: 08-03-2023 Insertion of catheter into peripheral vein [facility] Start: 08-03-2023 Measuring intake and output [facility] Start: 08-03-2023 Oxygen therapy [facility] Start: 08-03-2023 Providing care according to standard [facility] Start: 08-03-2023 Tobacco use cessation education [facility] Start: 08-03-2023 [facility] Start: 08-03-2023 Electrocardiographic procedure [facility] Start: 08-03-2023 Consultation [facility] Start: 08-03-2023 Verification routine [facility] Start: 08-03-2023 End: 08-03-2023 Admission procedure [facility] [facility] Start: 08-03-2023 Hospital admission, emergency, from emergency room, medical nature [facility] Start: 06-05-2023 End: 09-04-2023 Basic metabolic 2000 panel - Serum or Plasma BASIC METABOLIC PNL Lab Routine Hypertension, essential Expected: 06/05/2023, Expires: 09/04/2023 [facility] Work Phone: Comment on above: Expected: 06/05/2023, Expires: 4 Start: 06-05-2023 End: 09-04-2023 Lipid 1996 panel - Serum or Plasma LIPID PANEL BASIC Lab Routine Hypertriglyceridemia Expected: 06/05/2023, Expires: 09/04/2023 [facility] Work Phone: Comment on above: Expected: 06/05/2023, Expires: 4 Start: 04-14-2023 Influenza vaccination Influenza Vaccine (#1) [facility] Start: 08-14-2022 Advance Directive Discussion Advance Directive Discussion [facility] Start: 08-14-2022 Depression Assessment Depression Assessment [facility] Start: 2015 RSV Vaccine (1 - 1-dose 60+ series) RSV Vaccine (1 - 1-dose 60+ series) [facility] Start: 2005 Shingrix Vaccine (1 of 2) Shingrix Vaccine (1 of 2) [facility] Start: 2000 Cologuard (FIT-DNA) Cologuard (FIT-DNA) [facility] Start: 2000 Colonoscopy Colonoscopy [facility] Start: 2000 Colorectal Cancer Screening Colorectal Cancer Screening [facility] Start: [address] COLONOGRAPHY [facility] Start: 2000 Fecal Occult Blood Fecal Occult Blood [facility] Start: 2000 Screening for malignant neoplasm of colon [facility] Start: 2000 SIGMOIDOSCOPY SIGMOIDOSCOPY [facility] Start: 1974 Urine microalbumin profile DTaP,Tdap,Td Vaccine (1 - Tdap) [facility] Start: 1973 Anxiety Screening Anxiety Screening [facility] Start: 1973 BP Controlled (<130/80) BP Controlled (<130/80) [facility] Start: 1973 Depression Screening Depression Screening [facility] Start: 1973 Hepatitis C Screening Hepatitis C Screening [facility] Start: 1961 Pneumococcal Vaccine: 65+ (1 - PCV) Pneumococcal Vaccine: 65+ (1 - PCV) [facility] Start: 1955 Covid-19 Vaccine (#1) Covid-19 Vaccine (#1) [facility] Start: 1955 Abdominal Aortic Aneurysm Screening Abdominal Aortic Aneurysm Screening [facility] Start: 1955 Abdominal aortic aneurysm screening Abdominal Aortic Aneurysm Screening [facility] CBC W Auto Different ial panel - Blood [facility] Colonoscopy [facility] Comprehensive metabo lic 1999 panel - Serum or Plasma [facility] CT Chest [facility] Lipid 1996 panel - S stacia or Plasma [facility] Microalbumin [Mass/v olume] in Urine [facility] Patient referral [facility] Work Phone: US.doppler Lower ext remity vein [facility] Immunizations Immunization Date Immunization Notes Care Provider Fa moisesty 08-03-2023 tetanus toxoid, redu yeison diphtheria toxoid, and acellular pertussis vaccine, adsorbed [facility] Payers Date Payer Category Payer Self-pay 2022 Medicare UHC AARP MEDICAR E [facility] AARP MEDICARE O [id number] 2022-Present [phone] [address] [address] [place] [address] HMO [id number] 2022 Unknown [id number] 1955 Unknown [id number] Private Health Insurance [id number] Unknown [id number] Unknown [id number] Unknown [id number] 462 Unknown [id number] 462 Unknown [id number] 462 Unknown [id number] 462 Unknown [id number]. 462 Unknown [id number]. 462 Unknown [id number] 462 Unknown [id number]. 462 Unknown [id number] 462 Social History Date Type Detail Facility Start: 05-01-2023 [facility] Work Phone: History of tobacco use Cigarette Smoker C [facility] Work Phone: Start: 05-01-2023 End: 01-16-2024 Cigarettes smoked current (pack per day) - Reported 0.5 [facility] Work Phone: Start: 05-01-2023 Tobacco use and exposure Smokeless tobacco non-user [facility] Work Phone: Start: 05-01-2023 End: 10-02-2023 Alcohol intake Lifetime non-drinker (finding) [facility] Start: 05-01-2023 End: 01-16-2024 Tobacco use panel [facility] Work Phone: National Score (1-10 0), lower number is lower risk 66 [facility] Work Phone: Start: 1955 Sex Assigned At Not on file C [facility] Start: 08-03-2023 End: 11-27-2023 Tobacco smoking status KSIS Unknown if ever smoked [facility] Start: 1955 Sex Assigned At Male [facility] Start: 11-27-2023 End: 02-26-2025 Tobacco smoking status NHIS Current Light tobacco smoker [facility] Medical Equipment Procedure Code Equipment Code Equipment Original Text Equipment Identifier Dates Primary uncemented hemiarthroplasty of hip ([id number]) Coated hip femur prosthesis, modular ()[id number] FDA Start: 08-03-2023 Primary uncemented hemiarthroplasty of hip ([id number]) Uncoated hip femur prosthesis, one-piece ()[id number] FDA Start: 08-03-2023 Primary uncemented hemiarthroplasty of hip ([id number]) Uncoated hip femur prosthesis, one-piece ()[id number] FDA Start: 08-03-2023 Goals Date Patient Goal Desired Activity /State Functional Status Date Assessment Result Facility 08-04-2023 Functional status Ambulates [facility] Work Phone: Mental Status Date Assessment Result Facility 08-04-2023 Cognitive function Appropriate;Marcel izquierdo [facility] Work Phone: 08-03-2023 Cognitive function Arousable To Voice/Nam e [facility] Work Phone: Clinical Notes 05-02-2023 to 02-13-2025 Note Date & Type Note Facility 02-13-2025 Evaluation note Diagnosis Onset Date Resolution Renal cyst acute February 13, 2025 1:10pm Screening for colon cancer acute February 13, 2025 1 :10pm Swelling of lower leg acute Feb 1:10pm Tobacco dependence acute February 132024 1:10pm CKD (chronic kidney disease) stage 3, GFR 30-59 ml/min chronic February 13, 2025 1 :10pm Hypertension chronic February 13 1:10pm [facility] Work Phone: 1(140) 902-615807-03-2025 Evaluation note* Diagnosis Onset Date Resolution Status Admit Date Renal cyst acute February 13, 2025 1:10pm Screening for colon cancer acute February 13, 2025 1:10pm Swelling of lower leg acute Feb 1:10pm Tobacco dependence acute February 132024 1:10pm CKD (chronic kidney disease) stage 3, GFR 30-59 ml/min chronic February 132024 1:10pm Hypertension chronic February 13 1:10pm DVT of lower limb, acute acute February 26, 2025 11:40am [facility] Work Phone: 1(316) 513-371012-17-2024 NotePatient Outreach (INTMMN) MYLES LEON ([id number]) 1955 M Date Time Provider Department 07/30/24 SHAHANA BARBER INTATILIO During your visit today, we recorded the following information about you: Allergies As of Date: 07/30/2024 (Not on File) Date Reviewed: 10/02/2023 Reviewed by: Dee Dee Pulliam LPN - Fully Assessed Visit Diagnosis:Hypertension, essential [I10] Order(s):BASIC METABOLIC PANEL [SQBMP] Order #: [id number] FUTURE Prescriptions as of 08/02/2024 - lisinopril-hydroCHLOROthiazide (ZESTORETIC) 20-25 mg per tablet Take 1 tablet by mouth every morning. Problem List As Of Date: 07/30/2024 (None) Encounter Status:Closed by MATHEW ODONNELL on 08/02/24[facility] 05-08-2024 Telephone encounter Note* Telephone Encounter - Chris Coto - 05/08/2024 4:04 PM EDT Pt scheduled for 's first available [facility]09-25-2024 Miscellaneous Notes* Telephone Encounter - Chris Coto - 05/08/2024 4:04 PM EDT Pt scheduled for 's first available * Telephone Encounter - Ochoa Freeman APRN.CNP - 05/08/2024 3:53 PM EDT Patient is due for Medicare Wellness Exam and has not yet established care with Dr. Barber, so please schedule with him. Ochoa Freeman APRN.CNP [facility] Telephone encounter Note * Telephone Encounter - Ochoa Freeman APRN.CNP - 05/08/2024 3:53 PM EDT Patient is due for Medicare Wellness Exam and has not yet established care with Dr. Barber, so please schedule with him. Ochoa Freeman APRN.CNP [facility]04-08-2024 Discharge summary Author Gisselle White [facility] November 20, 2023 11:24am Note Date/Time November 20, 2023 11:2 4am [facility] Physical Therapy [facility] [address] [place] [address] / REHABILITATION SERVICES DISCHARGE SUMMARY MR#: [id number] Acct: [id number] Name: MYLES LEON Rep #: [id number] : 1955 68 From: Gisselle MILLER T Referring Dr.: Dr. Keith Hernandez, Status: REG RCR Insurance: [facility] [id number] SELF PAY INSURANCE Patient Information Patient Information: MYLES LEON was seen in my office for initial evaluation on 08/08/23. The following Plan of Care was established for this patient: POC Established Initial Frequency: 2x /Week Initial Duration: 4 Weeks Anticipated Interventions Patient/Client Instruction: Educate patient on: Benefits of Fitness Program Therapeutic Exercise to Include: Strength training, Endurance training, Balance training, Coordination, Agility training, Body mechanics, Postural training, Flexibilty training, Gait and locomotor training, Neuromotor development, ActiveROM, Dynamic Lumbar Stabilization and Scapular Strength/Stabilization For the Purpose of:: To improve muscle performance and motor function Cryotherapy (ice pack, ice massage): Yes Thermo therapy (hot pack): Yes Last Seen Last Seen: This patient was last seen in our office . Pertinent comments regarding their Physical therapy will appear below: Patient has not attended PT in over 8 weeks- appropriate to be d/c at this time and to continue HEP. At this point I will be discontinuing this patient from physical therapy. I would be happy to see this patient again in the future if found appropriate by the physician. Thank you! ANGELA DuncanT Balance/Gait/Functional tests Balance/Special Test Scores Lower Extremity Functional Score: 21 Tug Test: <20 sec.=mostly independent <Electronically signed by Gisselle White DPT> 11/20/23 1124 CC: Dr. Keith Hernandez DO; Dr. Debora Lipscomb MD ~ ELR Signed [facility] Work Phone: 1(528) 622-925903-20-2024 NoteHNO ID: [id number] Author: MINAL SAM MA Service: ? Author Type: Carroting Machine Operator Type: Progress Notes Filed: 11/01/2023 13:31 Note Text: POPULATION HEALTH NAVIGATION OUTREACH Action/FYI spoke to pt and scheduled wellness Reason for Outreach Care Gap/HCC or Scheduling Wellness Visits Care Gaps due: Medicare Annual Wellness Visit Patient Contacted: Spoke to patient/parent/or legal guardian Patient identified by name and : Yes Care Gap/HCC/Scheduling Wellness actions taken: Patient scheduled/pended labs: Medicare Annual Wellness Visit 01/16/2024 in [facility] with SHAHANA BARBER medicare wellness Navigation Signature: Minal Sam MA [facility] 01, 2023 [facility] History of Present illness Narrative* Minal Sam MA - 11/01/2023 1:30 PM EDT POPULATION HEALTH NAVIGATION OUTREACH Action/FYI spoke to pt and scheduled wellness Reason for Outreach Care Gap/HCC or Scheduling Wellness Visits Care Gaps due: Medicare Annual Wellness Visit Patient Contacted: Spoke to patient/parent/or legal guardian Patient identified by name and : Yes Care Gap/HCC/Scheduling Wellness actions taken: Patient scheduled/pended labs: Medicare Annual Wellness Visit 01/16/2024 in [facility] with SHAHANA BARBER medicare wellness Navigation Signature: Minal Sam MA November 01, 2023 1:30 PM documented in [facility] encounterBer[facility]03-[facility]-2024 NotePatient Outreach (NETNAV) MYLES LEON ([id number]) 1955 [place] Date Time Provider Department 11/01/23 MINAL SAM During your visit today, we recorded the following information about you: Minal Sam MA 11/01/2023 1:31 PM Signed POPULATION HEALTH NAVIGATION OUTREACH Action/FYI spoke to pt and scheduled wellness Reason for Outreach Care Gap/HCC or Scheduling Wellness Visits Care Gaps due: Medicare Annual Wellness Visit Patient Contacted: Spoke to patient/parent/or legal guardian Patient identified by name and : Yes Care Gap/HCC/Scheduling Wellness actions taken: Patient scheduled/pended labs: Medicare Annual Wellness Visit 01/16/2024 in [facility] with SHAHANA BARBER - medicare wellness Navigation Signature: Minal Sam MA November 01, 2023 1:30 PM Allergies As of Date: 11/01/2023 (Not on File) Date Reviewed: 10/02/2023 Reviewed by: Dee Dee Pulliam LPN - Fully Assessed Reason for Visit: Population Health Navigation Outreach [3910] Cmt: [employer] care gaps Prescriptions as of 11/01/2023 - lisinopril-hydroCHLOROthiazide (ZESTORETIC) 20-25 mg per tablet Take 1 tablet by mouth every morning. Problem List As Of Date: 11/01/2023 (None) Encounter Status:Closed by MINAL SAM on 11/01/23[facility] 10-02-2023 NoteHNO ID: [id number] Author: OCHOA GALINDO APRN.DIRECTOR TRANSPORTATION Service: ? Author Type: Nurse Practitioner Type: Progress Notes Filed: 10/02/2023 16:48 Note Text: This note was created using EZ4Uriter. Subjective Myles Leon is a 68 year old male. Patient here for pre-op clearance prior to cataract surgery. Had the left eye done last fall, needs to schedule the right one. Needs additional clearance due to the recent hospitalization after breaking his hip and having surgery. Patient had quit smoking for 3 months but re-started it, smoking about 5 cigarettes per day. Patient to see new PCP in [place] [facility], Gabriela Chin. Have you or anyone in your family ever had a problem with anesthesia?No Do you have a cough/bronchitis/sinusitis? No Have [...] ever had high blood pressure/low blood pressure?Yes, well controlled Do you have any contagious disease or infection/HIV?No Do you have diabetes/low blood sugar?No Have you ever had thyroid problems?No Have you ever had a stroke?No Have you ever had epilepsy or had seizures?No Have you ever had kidney problems?Yes, mildly. Have you ever had liver problems/jaundice/hepatitis?No Have you ever had any gallbladder disease?No Do you drink alcoholic beverages? If so how much?No Do you smoke, or did you ever? If so, how much? For how long?Yes, re-started, currently 5/day Do you use social drugs?No ADVANCED DIRECTIVES: Does not have Do you have Health Care Surrogate?No Do you wish to select one?Yes, son Garrett Living will?(if yes, obtain copy and place on chart)Declined The history is provided by the patient. Review of Systems Constitutional: Negative for chills, fever and unexpected weight change. HENT: Negative for congestion, ear pain, hearing loss, rhinorrhea and sore throat. Eyes: Negative for visual disturbance. Respiratory: Positive for cough. Negative for shortness of breath and wheezing. Cardiovascular: Negative for chest pain, palpitations and leg swelling. Gastrointestinal: Negative for abdominal pain, constipation, diarrhea, nausea and vomiting. Endocrine: Negative for polydipsia and polyuria. Genitourinary: Negative for dysuria, frequency, hematuria, scrotal swelling, testicular pain and urgency. Musculoskeletal: Positive for arthralgias. Negative for back pain, gait problem, joint swelling, myalgias and neck pain. Skin: Negative for rash. Allergic/Immunologic: Negative for immunocompromised state. Neurological: Negative for dizziness, syncope, light-headedness and headaches. Hematological: Negative for adenopathy. Does not bruise/bleed easily. Psychiatric/Behavioral: Negative for dysphoric mood. The patient is not nervous/anxious. PAST MEDICAL HISTORY Diagnosis Date Kidney stone PAST SURGICAL HISTORY Procedure Laterality Date LITHOTRIPSY XTRCORP SHOCK WAVE ALLERGIES Patient has no allergy information on record. MEDICATIONS lisinopril-hydroCHLOROthiazide (ZESTORETIC) 20-25 mg per tablet Take 1 tablet by mouth every morning. FAMILY HISTORY Problem Relation Age of Onset [...] use: Never Drug use: Never Objective BP 125/82 Pulse 93 Ht 177.8 cm (5' 10) Wt 103.4 kg (227 lb 15.3 oz) BMI 32.71 kg/m? Physical Exam Vitals and nursing note reviewed. Constitutional: Appearance: He is not ill-appearing. HENT: Head: Normocephalic. Right Ear: Tympanic membrane and ear canal normal. Left Ear: Tympanic membrane and ear canal normal. Mouth/Throat: Mouth: Mucous membranes are moist. Eyes: Extraocular Movements: Extraocular movements intact. Conjunctiva/sclera: Conjunctivae normal. Pupils: Pupils are equal, round, and reactive to light. Neck: Thyroid: No thyroid mass or thyromegaly. Cardiovascular: Rate and Rhythm: Normal rate and regular rhythm. Pulses: Normal pulses. Heart sounds: Normal heart sounds. Pulmonary: Effort: Pulmonary effort is normal. Breath sounds: Normal breath sounds and air entry. Abdominal: General: Abdomen is flat. Bowel sounds (more content not included)...[facility]02-19-2024 History of Present illness Narrative* Ochoa Galindo APRN.DIRECTOR TRANSPORTATION - 10/02/2023 3:20 PM EST This note was created using EZ4Uriter. Meryl Leon is a 68 year old male. Patient here for pre-op clearance prior to cataract surgery. Had the left eye done last fall, needsto schedule the right one. Needs additional clearance due to the recent hospitalization after breaking his hip and having surgery. Patient had quit smoking for 3 months but re-started it, smoking about 5 cigarettes per day. Patient to see new PCP in [place], [facility], Gabriela Chin. Have you or anyone in your family ever had a problem with anesthesia?No Do you have a cough/bronchitis/sinusitis? No Have [...] ever had high blood pressure/low blood pressure?Yes, well controlled Do you have any contagious disease or infection/HIV?No Do you have diabetes/low blood sugar?No Have you ever had thyroid problems?No Have you ever had a stroke?No Have you ever had epilepsy or had seizures?No Have you ever had kidney problems?Yes, mildly. Have you ever had liver problems/jaundice/hepatitis?No Have you ever had any gallbladder disease?No Do you drink alcoholic beverages? If so how much?No Do you smoke, or did you ever? If so, how much? For how long?Yes, re-started, currently 5/day Do you use social drugs?No ADVANCED DIRECTIVES: Does not have Do you have Health Care Surrogate?No Do you wish to select one?Yes, son Garrett Living will?(if yes, obtain copy and place on chart)Declined The history is provided by the patient. Review of Systems Constitutional: Negative for chills, fever and unexpected weight change. HENT: Negative for congestion, ear pain, hearing loss, rhinorrhea and sore throat. Eyes: Negative for visual disturbance. Respiratory: Positive for cough. Negative for shortness of breath and wheezing. Cardiovascular: Negative for chest pain, palpitations and leg swelling. Gastrointestinal: Negative for abdominal pain, constipation, diarrhea, nausea and vomiting. Endocrine: Negative for polydipsia and polyuria. Genitourinary: Negative for dysuria, frequency, hematuria, scrotal swelling, testicular pain and urgency. Musculoskeletal: Positive for arthralgias. Negative for back pain, gait problem, joint swelling, myalgias and neck pain. Skin: Negative for rash. Allergic/Immunologic: Negative for immunocompromised state. Neurological: Negative for dizziness, syncope, light-headedness and headaches. Hematological: Negative for adenopathy. Does not bruise/bleed easily. Psychiatric/Behavioral: Negative for dysphoric mood. The patient is not nervous/anxious. PAST MEDICAL HISTORY Diagnosis Date Kidney stone PAST SURGICAL HISTORY Procedure Laterality Date LITHOTRIPSY XTRCORP SHOCK WAVE ALLERGIES Patient has no allergy information on record. MEDICATIONS lisinopril-hydroCHLOROthiazide (ZESTORETIC) 20-25 mg per tablet Take 1 tablet by mouth every morning. FAMILY HISTORY Problem Relation Age of Onset [...] use: Never Drug use: Never Objective BP 125/82 Pulse 93 Ht 177.8 cm (5' 10) Wt 103.4 kg (227 lb 15.3 oz) BMI 32.71 kg/m Physical Exam Vitals and nursing note reviewed. Constitutional: Appearance: He is not ill-appearing. HENT: Head: Normocephalic. Right Ear: Tympanic membrane and ear canal normal. Left Ear: Tympanic membrane and ear canal normal. Mouth/Throat: Mouth: Mucous membranes are moist. Eyes: Extraocular Movements: Extraocular movements intact. Conjunctiva/sclera: Conjunctivae normal. Pupils: Pupils are equal, round, and reactive to light. Neck: Thyroid: No thyroid mass or thyromegaly. Cardiovascular: Rate and Rhythm: Normal rate and regular rhythm. Pulses: Normal pulses. Heart sounds: Normal heart sounds. Pulmonary: Effort: Pulmonary effort is normal. Breath sounds: Normal breath sounds and air entry. Abdominal: General: Abdomen is flat. Bowel sounds are normal. Palpations: Abdomen is soft. Musculoskeletal: General: Normal range of motion. Cervical back: Normal range of motion. No tenderness. Right lower leg: No edema. Left lower leg: No edema. Lymphadenopathy: Cervical: No cervical adenopathy. Skin: General: Skin is warm and dry. Capillary Refill: Capillary refill takes less than 2 seconds. Neurological: Mental Status: He is alert and oriented to person, place, and time. Cranial Nerves: No cranial nerve deficit. Gait: Gait normal. Psychiatric: Mood and Affect: Mood normal. Assessment and Plan 1. Pre-op evaluation Cleared for cataract surgery, will contact [facility] to send clearance form. 2. Cataract of right eye, unspecified cataract type Ochoa Galindo APRN.TARA documented in this encounterBerger Hospital02-13-2024 Miscellaneous Notes* Telephone Encounter - Blake Loera LPN - 09/26/2023 3:29 PM EST Pharmacy verified in [facility] Patient has been identified by name and date of : Yes Patient aware RX will be sent to pharmacy. No need to notify patient. Patient phones for refill(s): Requested Prescriptions Pending Prescriptions Disp Refills lisinopril-hydroCHLOROthiazide (ZESTORETIC) 20-25 mg per tablet 90 tablet 0 Sig: Take 1 tablet by mouth every morning. Date of last office visit : Visit date not found Date of next office visit : Visit date not found Last 2 Encounter Wt Readings: Date: Wt: 06/05/2023 102.5 kg (226 lb) 05/08/2023 102.5 kg (226 lb) Blood Pressure: BUN (mg/dL) Date Value 05/01/2023 12 Creatinine (mg/dL) Date Value 05/01/2023 1.37 Sodium (mmol/L) Date Value 05/01/2023 138 Potassium (mmol/L) Date Value 05/01/2023 4.2 Last 1 Encounter BP Readings: Date: BP: 06/05/2023 123/80 Please advise. Blake Loera LPN * Telephone Encounter - Kim Ross - 09/26/2023 3:26 PM EST Patient has been identified by name and date of : Yes Requested Prescriptions Pending Prescriptions Disp Refills lisinopril-hydroCHLOROthiazide (ZESTORETIC) 20-25 mg per tablet 90 tablet 0 Sig: Take 1 tablet by mouth every morning. RX INSTRUCTIONS: Patient aware RX will be sent to pharmacy. No need to notify patient. Kim Mcclelland documented in this encounterBerger Hospital12-22-2023 Discharge summary Author Keith Hernandez [facility] August 04, 2023 1:24pm Note Date/Time August 04, 2023 1:15pm [facility] Medical Records Department [address] [place] [address] Discharge Summary 08/04/23 1313 MR#: [id number] Acct: [id number] Name: MYLES LEON Rep #:[id number] : 1955 68 From: Keith Hernandez DO PCP: Care Physician,No Primary Status :ADM IN Location: [place] [address] Providers Date of Admission: 08/03/23 Primary Care Physician: No Primary Care Phys Consultations 08/03/23 02:49 Consult: Orthopedics Routine Consulting Provider: [facility] Reason for Consult: Left hip fracture after mechanical fall. EMERGENT Consult: No MD Notified: Yes Date Notified: 08/03/23 Time Notified: 06:48 Method of Notification: Verbal Reason For Visit: LEFT HIP FRACTURE AFTER MECHANICAL FALL AND Diagnosis Discharge Diagnosis (1) Fracture of femoral neck, left: Status: Acute Code(s): S72.002A - Fracture of unspecified part of neck of left femur, initial encounterfor closed fracture Qualifiers: Encounter type: initial encounter Fracture type: closed Qualified Code(s): S72.002A - Fracture of unspecified part of neck of left femur, initial encounter for closed fracture (2) Hypokalemia: Status: Acute Code(s): E87.6 - Hypokalemia (3) Essential hypertension: Status: Acute Code(s): I10 - Essential (primary) hypertension (4) ARCHANA (acute kidney injury): Status: Acute Code(s): N17.9 - Acute kidney failure, unspecified (5) Obesity (BMI 30.0-34.9): Status: Acute Code(s): E66.9 - Obesity, unspecified Plan Left femoral neck fracture * after mechanical fall * Pain control. NWB. Check 25 OH D level. * left hip hemiarthoplasty on the . * PT OT. Hypokalemia * 3.3 mmol/L present on admission complicating * resolved after replacement. Suspected acute kidney injury * elevated serum creatinine of 1.95 mg/dL on admission. Down to 1.67 with IVF. Unknown baseline. Monitor.resuscitation and recheck BMP in the a.m. to confirm suspicion Chronic conditions: * Essential hypertension - Hold lisinopril/HCTZ for now in light of ARCHANA/CKD. Give IV hydralazine as needed for systolic blood pressure greater than or equal to 160 mmHg. * Tobacco abuse - Tobacco cessation will be strongly encouraged with nicotine patch offered to control cravings. * Obesity; with BMI of 32.6 this admission - Weight loss will be recommended. TSH WNL * Recent surgery remove cataract from left eye last week - Stable. Disposition to home with either home health or outpatient therapy. Medications at Discharge Home Medications lisinopril 10 mg-hydrochlorothiazide 12.5 mg tablet 1 tab PO DAILY htn 08/03/23 acetaminophen 500 mg tablet 1,000 mg (2 x 500 mg) PO Q8 PRN fever or pain #20 tabs 08/04/23 oxycodone 5 mg tablet 5 mg PO Q6H PRN pain (scale score 7-10) 3 days #12 tabs 08/04/23 Hospital Course Operations - (left hip hemiarthoplasty) Weight / BMI Weight Weight: 101.7 kg Body Mass Index (BMI) 32.1 ABG / Lab / Microbiology Data 08/03/23 07:18 08/03/23 07:18 Radiography Diagnostic Testing: Radiology Impression Hip X-Ray 08/03/23 14:00 IMPRESSION: Status post left total hip replacement. There is good alignment. Postoperative soft tissue changes. Electronically Signed: Charan Cardenas MD at 14:45 EST , D/C Instructions Discharge Diet: No restrictions Discharge Activity: Use Walker Weight Bearing Status: Weight bearing as tolerated Keep extremity elevated above heart level: Left Leg Meaningful Use Info Meaningful Use Diagnoses (Choose all that apply): None applicable Discharge Plan Admission Admit Date/Time: 08/03/23 02:43 Primary Reason for Your Visit: Left hip fracture Attending Provider: Keith Hernandez Primary Care Provider: Care Physician,No Primary Consulting Providers: Adis Guzman; Marco Parker; All Robbins; Keenan Mars; Gordon Mackenzie; Deven Mena; Paras Mackenzie; Manav Arthur; Lila Petty; Cayetano Mays; Sushil Briseno Discharge Orders/Prescriptions Prescriptions: New acetaminophen 500 mg Tablet 1,000 mg PO Q8 PRN (Reason: fever or pain) Qty: 20 0RF oxycodone 5 mg tablet 5 mg PO Q6H PRN (Reason: pain (scale score 7-10)) 3 Days Qty: 12 0RF Continued lisinopril-hydrochlorothiazide 10-12.5 mg tablet 1 tab PO DAILY Patient Comments: Take 2 tablets by mouth every morning. Referrals / Follow Up: Debora Lipscomb MD [Med Staff - [facility]arf [facility]] - 08/28/23 2:00 pm (transportation will be there to pick u up at 1pm) Keenan Mars DO [Med Staff - Active Staff] - Within 2 Weeks Care Physician,No Primary [Primary Care Provider] - Disposition Disposition (needs filled in before D/C Order can be placed): Home Health Service Charges/Coding Visit Charges Inpatient E&M: 18246 Disch Hosp 08/04/23 1319 <Electronically signed by Keith Hernandez DO> Cosigner Signature (if applicable): CC: Dr. Keith Hernandez DO; No Primary Care Physician~ Signed ADDENDUM by Dr. Keith Hernandez DO on 08/04/23 at 1324 Addendum Patient unsafe to use a cane given his recent left hip hemiarthroplasty following hip fracture. Requires a walker for ambulation. 08/04/23 1324<Electronically signed by Keith Hernandez DO> Cosigner Signature (if applicable): cc: Dr. Keith Hernandez DO; No Primary Care Physician ~* Signed [facility] Work Phone: 1(386) 908-159312-22-2023 Progress note Author Keith Hernandez [facility] August 04, 2023 1:13pm Note Date/Time August 04, 2023 8:09am [facility] Medical Records Department [address] [place] [address] Progress Note - Hospitalist 08/04/23807 MR#: [id number] Acct: [id number] Name: MYLES LEON Rep #:[id number] : 1955 68 From: Keith Hernandez DO PCP: Care Physician,No Primary Status :ADM IN Location: [place] [address] Subjective Subjective Feels well. No new issues. Objective Data Objective Data Vital Signs: Vital Signs Temp Pulse Resp BP Pulse Ox O2 Del Method O2 Flow Rate 37.1 C 99 16 126/71 H 98 Room Air 2 08/04/23 07:53 08/04/23 07:53 08/04/23 07:53 08/04/23 07:53 08/04/23 07:53 08/04/23 07:53 08/03/23 17:45 Oxygen Flow Rate (L/min) 2 Oxygen Delivery Method Room Air Weight: 101.7 kg Body Mass Index (BMI) 32.1 Intake & Output: Intake and Output for Last 24 Hours 08/02/23 08/03/23 08/04/23 23:59 23:59 23:59 Intake Total 2397.00 / 2397.00 463 / 463 Output Total 400 / 400 Balance 1996.00 / 1996. 463 / 463 Lab / Micro Data 08/03/23 07:18 08/03/23 07:18 Labs: Laboratory Results - last 24 hr 08/03/23 07:18: Sodium 138, Potassium 3.7, Chloride 106, Carbon Dioxide 23.0, Anion Gap 9, BUN 25 H, Creatinine 1.67 H, Estim Creat Clear Calc 43.71, Est GFR (MDRD) Af Amer 53 L, Est GFR (MDRD) Non-Af 44 L, BUN/Creatinine Ratio 15.0, Glucose 117 H, Calcium 8.9, Total Bilirubin 1.00, AST 28, ALT 33, Alkaline Phosphatase 53, Albumin 3.3, Vitamin D 25-Hydroxy 21.1, TSH 1.59, Blood Type O POSITIVE, Antibody Screen NEGATIVE Radiography Diagnostic Testing: Radiology Impression Hip X-Ray 08/03/23 14:00 IMPRESSION: Status post left total hip replacement. There is good alignment. Postoperative soft tissue changes. Electronically Signed: Charan Cardenas MD at 14:45 EST , Physical Exam Const alert and no apparent distress Extremity Extremity Narrative: Dressing over the incision but no bruising. Assessment & Plan Assessment/Plan (1) Fracture of femoral neck, left: QUALIFIERS: Encounter type: initial encounter Fracture type: closed Qualified Code(s): S72.002A - Fracture of unspecified part of neck of left femur, initial encounter for closed fracture (2) Hypokalemia: (3) Essential hypertension: (4) ARCHANA (acute kidney injury): (5) Obesity (BMI 30.0-34.9): PLAN: Plan Left femoral neck fracture * after mechanical fall * Pain control. NWB. Check 25 OH D level. * left hip hemiarthoplasty on the . * PT OT. Hypokalemia * 3.3 mmol/L present on admission complicating * resolved after replacement. Suspected acute kidney injury * elevated serum creatinine of 1.95 mg/dL on admission. Down to 1.67 with IVF. Unknown baseline. Monitor.resuscitation and recheck BMP in the a.m. to confirm suspicion Chronic conditions: * Essential hypertension - Hold lisinopril/HCTZ for now in light of ARCHANA/CKD. Give IV hydralazine as needed for systolic blood pressure greater than or equal to 160 mmHg. * Tobacco abuse - Tobacco cessation will be strongly encouraged with nicotine patch offered to control cravings. * Obesity; with BMI of 32.6 this admission - Weight loss will be recommended. TSH WNL * Recent surgery remove cataract from left eye last week - Stable. Disposition to home with either home health or outpatient therapy. 08/04/23 1313 <Electronically signed by Keith Hernandez DO> Cosigner Signature (if applicable): CC: ~ Signed [facility] Work Phone: 1(461) 146-411512-22-2023 Progress note Author Lila Petty [facility] August 04, 2023 9:04am Note Date/Time August 04, 2023 8:46am [facility] Medical Records Department [address] [place] [address] Progress Note - Orthopedic 08/04/2337 MR#: [id number] Acct: [id number] Name: MYLES LEON Rep #:[id number] : 1955 68 From: Lila SARAH PCP: Care Physician,No Primary Status :ADM IN Location: [place] [address] Subjective Subjective patient is a 68 year old Male s/p left hip hemiarthroplasty with Dr. Mars on 08/03/23 after having a mechanical fall and femoral neck fracture. patient is in bedside chair this mornign on exam and feeling well. he has been up with PT with a walker and has minimal pain. dressing intact, no drainage. he denies chest pain, SOB, calf pain. afebrile. denies history of DVT or PE. Objective Data Objective Data Vital Signs: Vital Signs Temp Pulse Resp BP Pulse Ox O2 Del Method O2 Flow Rate 98.7 F 99 16 126/71 H 98 Room Air 2 08/04/23 07:53 08/04/23 07:53 08/04/23 07:53 08/04/23 07:53 08/04/23 07:53 08/04/23 08:20 08/03/23 17:45 Oxygen Flow Rate (L/min) 2 Oxygen Delivery Method Room Air Weight: 101.7 kg Body Mass Index (BMI) 32.1 Intake & Output: Intake and Output for Last 24 Hours 08/02/23 08/03/23 08/04/23 23:59 23:59 23:59 Intake Total 2397.00 / 2397.00 463 / 463 Output Total 400 / 400 Balance 1996. / 1996. 463 / 463 Lab / Micro Data 08/03/23 07:18 08/03/23 07:18 Labs: Laboratory Results - last 24 hr 08/03/23 07:18: Total Bilirubin 1.00, AST 28, ALT 33, Alkaline Phosphatase 53, Albumin 3.3, Vitamin D 25-Hydroxy 21.1 Radiography Diagnostic Testing: Radiology Impression Hip X-Ray 08/03/23 14:00 IMPRESSION: Status post left total hip replacement. There is good alignment. Postoperative soft tissue changes. Electronically Signed: Charan Cardenas MD at 14:45 EST , Physical Exam Narrative sitting in bedside chair resting comfortably room air no acute distress left leg is warm to touch dressing c/d/i sensation intact throughout entire extremity full dorsi/plantar flexion full ROM at knee. dorsi flexion/ plantar flexion strength 5/5. Assessment & Plan Assessment/Plan (1) Fracture of femoral neck, left: QUALIFIERS: Encounter type: initial encounter Fracture type: closed Qualified Code(s): S72.002A - Fracture of unspecified part of neck of left femur, initial encounter for closed fracture PLAN: POD1 s/p left hip hemiarthroplasty with Dr. Mars. 1. WBAT, PT/OT. blankets between legs to prevent abduction x 48 hours. posteriorhip precautions x 6 weeks. 2. no leukocytosis, or acute anemia. 3. lovenox daily for DVT ppx x 2 weeks. ok to discharge home with aspirin 81mg BID if patient is returning home (unless medicine feels strongly about lovenox for other medical reasons). if he is going to a SNF or rehab facilicty would recommend continue lovenox. 4. ok to remove post op dressing post op day 7. 5. patient to follow up in our office in 2 weeks for incision check and xrays. 6. begin outpatient PT upon discharge. 7. tylenol 1000mg q8 , oxycodone q6hrs prn pain 8. ok from an orthopaedic standpoint for discharge. discharge per primary. 9. ortho will sign off. (2) Status post hip hemiarthroplasty: 08/04/23 0904 <Electronically signed by Lila SARAH> Cosigner Signature (if applicable): CC: ~ Signed [facility] Work Phone: 1(891) 963-531612-21-2023 Progress note Author Keith Hernandez [facility] August 03, 2023 3:23pm Note Date/Time August 03, 2023 8:29am [facility] Medical Records Department [address] [place] [address] Progress Note - Hospitalist 08/03/23 0824 MR#: [id number] Acct: [id number] Name: MYLES LEON Rep #:[id number] : 1955 68 From: Keith Hernandez DO PCP: Care Physician,No Primary Status :ADM IN Location: [place] [address] Reason for Visit Reason for Visit: Diagnoses Obesity, unspecified (08/03/23) Hypokalemia (08/03/23) Essential (primary) hypertension (08/03/23) Acute kidney failure, unspecified (08/03/23) Fracture of unspecified part of neck of left femur, initial encounter for closedfracture (08/03/23) Objective Data Objective Data Vital Signs: Vital Signs Temp Pulse Resp BP Pulse Ox O2 Del Method 37.2 C 98 14 147/90 H 94 Room Air 08/03/23 07:43 08/03/23 07:43 08/03/23 07:43 08/03/23 07:43 08/03/23 07:43 08/03/23 07:43 Oxygen Delivery Method Room Air Weight: 101.5 kg Body Mass Index (BMI) 32.1 Intake & Output: Intake and Output for Last 24 Hours 08/01/23 08/02/23 08/03/23 23:59 23:59 23:59 Intake Total 1030 / 1030 Balance 1030 / 1030 Lab / Micro Data 08/03/23 07:18 08/03/23 07:18 Labs: Laboratory Results - last 24 hr 08/03/23 00:22: WBC 9.1, RBC 4.80, Hgb 14.4, Hct 43.0, MCV 89.6, MCH 30.0, MCHC 33.5, RDW Std Deviation 45.0 H, RDW Coeff of Cheryl 13.8, Plt Count 183, MPV 10.0, Sodium 136, Potassium 3.3 L, Chloride 105, Carbon Dioxide 22.0, Anion Gap 9, BUN28 H, Creatinine 1.95 H, Estim Creat Clear Calc 37.44, Est GFR (MDRD) Af Amer 44L, Est GFR (MDRD) Non-Af 37 L, BUN/Creatinine Ratio 14.4, Glucose 137 H, Calcium9.5 08/03/23 07:18: WBC 9.0, RBC 4.55 L, Hgb 13.9, Hct 41.3, MCV 90.8, MCH 30.5, MCHC 33.7, RDW Std Deviation 47.4 H, RDW Coeff of Cheryl 14.1, Plt Count 177, MPV 9.8, Immature Gran % (Auto) 0.700, Neut % (Auto) 77.9 H, Lymph % (Auto) 12.3 L, Giles % (Auto) 8.2, Eos % (Auto) 0.7, Baso % (Auto) 0.2, Absolute Neuts (auto) 7.0, Absolute Lymphs (auto) 1.11, Nucleated RBC % 0 Radiography Diagnostic Testing: Radiology Impression Brain CT 08/03/23 00:07 IMPRESSION: No acute intracranial finding. Electronically Signed: Manoj Dominguez MD at 1:23 EST Reading Location ID and State: [facility] / [place] Tel , Service support , Cervical Spine CT 08/03/23 00:07 IMPRESSION: No evidence of acute cervical spinal fracture or spondylolisthesis. Mild to moderate degenerative change throughout the cervical spine. Electronically Signed: Manoj Dominguez MD at 1:27 EST Reading Location ID and State: [facility] / [place] Tel , Service support , Lumbar Spine CT 08/03/23 00:07 IMPRESSION: No evidence of acute lumbar spinal fracture or spondylolisthesis. Mild to moderate degenerative change throughout the lumbar spine. Electronically Signed: Manoj Dominguez MD at 1:21 EST Reading Location ID and State: [facility] / [place] Tel , Service support , Chest X-Ray 08/03/23 01:00 IMPRESSION: No acute pulmonary finding. Electronically Signed: Manoj Dominguez MD at 1:27 EST , Femur X-Ray 08/03/23 01:00 IMPRESSION: Left femoral neck fracture with varus angulation. Electronically Signed: Manoj Dominguez MD at 1:29 EST , Pelvis X-Ray 08/03/23 01:00 IMPRESSION: Left femoral neck fracture. Electronically Signed: Manoj Dominguez MD at 1:33 EST , Physical Exam Narrative pt off the floor did not see. Assessment & Plan Assessment/Plan (1) Fracture of femoral neck, left: QUALIFIERS: Encounter type: initial encounter Fracture type: closed Qualified Code(s): S72.002A - Fracture of unspecified part of neck of left femur, initial encounter for closed fracture (2) Hypokalemia: (3) Essential hypertension: (4) ARCHANA (acute kidney injury): (5) Obesity (BMI 30.0-34.9): PLAN: Plan Left femoral neck fracture * after mechanical fall * Pain control. NWB. Check 25 OH D level. * left hip hemiarthoplasty on the . * PT OT. Hypokalemia * 3.3 mmol/L present on admission complicating * resolved after replacement. Suspected acute kidney injury * elevated serum creatinine of 1.95 mg/dL on admission. Down to 1.67 with IVF. Unknown baseline. Monitor.resuscitation and recheck BMP in the a.m. to confirm suspicion Chronic conditions: * Essential hypertension - Hold lisinopril/HCTZ for now in light of ARCHANA/CKD. Give IV hydralazine as needed for systolic blood pressure greater than or equal to 160 mmHg. * Tobacco abuse - Tobacco cessation will be strongly encouraged with nicotine patch offered to control cravings. * Obesity; with BMI of 32.6 this admission - Weight loss will be recommended. TSH WNL * Recent surgery remove cataract from left eye last week - Stable. DVT prophylaxis - Place RLE SCD and avoid blood thinners preoperatively in casesof traumatic fracture due to increased risk of bleeding complications. Orthopedic team to decide upon postoperative DVT prophylaxis. 08/03/23 1523 <Electronically signed by Keith Hernandez DO> Cosigner Signature (if applicable): CC: ~ Signed [facility] Work Phone: 1(765) 314-943312-21-2023 Procedure [facility] 08-03-2023 Consult note Author Keenan Mars [facility] August 03, 2023 10:15am Note Date/Time August 03, 2023 10:09am [facility] Medical Records Department [address] [place] [address] Consultation - Orthopedics 08/03/23 1008 MR#: [id number] Acct: [id number] Name: MYLES LEON Rep #:[id number] : 1955 68 From: Keenan izquierdo DO PCP: Care Physician,No Primary Status :ADM IN Location: [place] [address] HPI Consult Data Date of Consult: 08/03/23 HPI Narrative Reason for Consultation: Left femoral neck fracture HPI Narrative: MYLES LEON, is a 68 M who presented to [facility] emergency department last evening after a mechanical fall down approximately 4 stairs on his left hip. Patient also injured his face with significant periorbital ecchymosis noted. X-rays Emergency Department revealed a displaced left femoralneck fracture. CT C-spine, L-spine, head was negative for acute process. Patient was admitted under the service of the hospitalist. Orthopedics was consulted. I saw the patient in consultation this morning. Patient is a community ambulator without assistive device. He reports no antecedent left groin pain or treatment of osteoarthritis in the past. Denies fevers, chills, nausea vomiting, chest pain or shortness of breath. Admits to no pain besides his left hip. Denies any numbness or tingling. Pain is currently controlled. Patient was placed in [place]'s traction by the admitting provider. Patient reports no history of VTE or difficulty with anesthesia in the past. [facility] Medical History Hypertension Home Medications lisinopril 10 mg-hydrochlorothiazide 12.5 mg tablet 1 tab PO DAILY htn 08/03/23 [History Last Taken 08/02/23] Allergy/AdvReac Type Severity Reaction Status Date / Time No Known Allergies Allergy Verified 08/03/23 00:09 Social History Smoking Status: Former smoker ROS ROS Narrative 12 point review of systems obtained, negative unless otherwise noted in HPI. Vital Signs Vital Signs Vital Signs: 08/02/23 23:59 08/03/23 00:03 08/03/23 02:30 Temperature 97.4 F L 98.0 F Temperature Source Temporal Pulse Rate 94 95 Respiratory Rate 18 16 Respiratory Effort Normal Respiratory Depth Respiratory Pattern Blood Pressure 142/82 H 156/90 H Blood Pressure Mean 102 112 Blood Pressure Source Blood Pressure Position Blood Pressure Location Pulse Ox 97 95 Oxygen Delivery Method Room Air Room Air 08/03/23 04:11 08/03/23 04:00 08/03/23 07:43 Temperature 98.9 F 99.0 F Temperature Source Temporal Oral Pulse Rate 94 98 Respiratory Rate 17 14 Respiratory Effort Normal Non-Labored Respiratory Depth Normal Respiratory Pattern Normal Blood Pressure 161/94 H 147/90 H Blood Pressure Mean 116 109 Blood Pressure Source Monitor Monitor Blood Pressure Position Semi-Fowlers Supine Blood Pressure Location Left Arm Left Arm Pulse Ox 96 94 Oxygen Delivery Method Room Air Room Air Room Air Weight Weight: 223 lb 12.307 oz Body Mass Index (BMI) 32.1 Physical Exam Narrative General -A&Ox3, NAD, appears stated age. Vital signs stable, afebrile. HEENT-periorbital ecchymosis and swelling, Steri-Strips in place. EOMI. PERRLA Respiratory -normal work of breathing, no intercostal retractions. CV -pulses regular, brisk capillary refill ?4 limbs. Abdomen-soft, nontender, nondistended. No guarding, rigidity, rebound tenderness. Musculoskeletal/neurologic -full range of motion nontender throughout bilateral upper extremities, right lower extremity with full sensation and strength in alldermatomes and myotomes. No midline cervical tenderness. Left lower extremity-no obvious deformity. Pain with logroll of the left lower extremity. Nontender throughout the left knee femoral shaft, tibial shaft and left foot/ankle. Brisk capillary refill. Sensation intact light touch L3-S1 dermatomes. DF, PF, EHL intact. DP, PT 2+. Pelvis is stable, nontender. Skinis intact without lacerations, abrasions. No ecchymosis noted. Lab / Micro Data 08/03/23 07:18 08/03/23 07:18 Labs: Laboratory Results - last 24 hr 08/03/23 00:22: WBC 9.1, RBC 4.80, Hgb 14.4, Hct 43.0, MCV 89.6, MCH 30.0, MCHC 33.5, RDW Std Deviation 45.0 H, RDW Coeff of Cheryl 13.8, Plt Count 183, MPV 10.0, Sodium 136, Potassium 3.3 L, Chloride 105, Carbon Dioxide 22.0, Anion Gap 9, BUN28 H, Creatinine 1.95 H, Estim Creat Clear Calc 37.44, Est GFR (MDRD) Af Amer 44L, Est GFR (MDRD) Non-Af 37 L, BUN/Creatinine Ratio 14.4, Glucose 137 H, Calcium9.5 08/03/23 07:18: WBC 9.0, RBC 4.55 L, Hgb 13.9, Hct 41.3, MCV 90.8, MCH 30.5, MCHC 33.7, RDW Std Deviation 47.4 H, RDW Coeff of Cheryl 14.1, Plt Count 177, MPV 9.8, Immature Gran % (Auto) 0.700, Neut % (Auto) 77.9 H, Lymph % (Auto) 12.3 L, Giles % (Auto) 8.2, Eos % (Auto) 0.7, Baso % (Auto) 0.2, Absolute Neuts (auto) 7.0, Absolute Lymphs (auto) 1.11, Nucleated RBC % 0, Sodium 138, Potassium 3.7, Chloride 106, Carbon Dioxide 23.0, Anion Gap 9, BUN 25 H, Creatinine 1.67 H, Estim Creat Clear Calc 43.71, Est GFR (MDRD) Af Amer 53 L, Est GFR (MDRD) Non-Af44 L, BUN/Creatinine Ratio 15.0, Glucose 117 H, Calcium 8.9, Vitamin D 25-Hydroxy 21.1, TSH 1.59, Blood Type O POSITIVE, Antibody Screen NEGATIVE Imagaing Radiology Impression Brain CT 08/03/23 00:07 IMPRESSION: No acute intracranial finding. Electronically Signed: Manoj Dominguez MD at 1:23 EST , Cervical Spine CT 08/03/23 00:07 IMPRESSION: No evidence of acute cervical spinal fracture or spondylolisthesis. Mild to moderate degenerative change throughout the cervical spine. Electronically Signed: Manoj Dominguez MD at 1:27 EST , Lumbar Spine CT 08/03/23 00:07 IMPRESSION: No evidence of acute lumbar spinal fracture or spondylolisthesis. Mild to moderate degenerative change throughout the lumbar spine. Electronically Signed: Manoj Dominguez MD at 1:21 EST , Chest X-Ray 08/03/23 01:00 IMPRESSION: No acute pulmonary finding. Electronically Signed: Manoj Dominguez MD at 1:27 EST , Femur X-Ray 08/03/23 01:00 IMPRESSION: Left femoral neck fracture with varus angulation. Electronically Signed: Manoj Dominguez MD at 1:29 EST , Pelvis X-Ray 08/03/23 01:00 IMPRESSION: Left femoral neck fracture. Electronically Signed: Manoj Dominguez MD at 1:33 EST , Assessment & Plan Assessment/Plan (1) Fracture of femoral neck, left: QUALIFIERS: Encounter type: initial encounter Fracture type: closed Qualified Code(s): S72.002A - Fracture of unspecified part of neck of left femur, initial encounter for closed fracture PLAN: Patient sustained a displaced left femoral neck fracture -Closed, neurovascularly intact -We discussed surgical options including left hip hemiarthroplasty versus total hip arthroplasty. I reviewed the risks and benefits of both procedures. I explained that patient has no significant degenerative changes on x-ray and no antecedent symptoms consistent with hip osteoarthritis. With his age, he is certainly at risk for developing acetabular osteoarthritis which may necessitateconversion to a total hip arthroplasty. I explained a total hip arthroplasty may mitigate risk of groin pain in the future, however there is a significant increased risk of instability which would be mitigated with a hemiarthroplasty. He wished to proceed with a left hip hemiarthroplasty. I explained I would recommend a total hip arthroplasty if significant chondromalacia or focal chondral lesions are identified intraoperatively and he was amenable to a total hip arthroplasty if this is the case. He agreed to consent to a left hp total versus mimi hip arthroplasty. -I discussed the procedure-its risks, benefits and alternative. Risks include but are not limited to bleeding, infection, loss of life or limb, risk of anesthesia, persistent pain or disability, leg length discrepancy, progression of arthritis, need for additional surgery, failure of orthopedic hardware, neurovascular injury, DVT or PE. Patient expressed understanding these risks and wished proceed with surgery. -Maintenance IV fluids, clear liquid diet after midnight n.p.o. at 2 hours priorto surgery -Type and screen -2 g Ancef on-call to the OR, 1 g IV TXA -Bedrest, heel protectors -Plan to proceed with surgery later today when OR becomes available Thank you for this consultation. 08/03/23 1015 <Electronically signed by Keenan Mars DO> Cosigner Signature (if applicable): CC: DAYANA Mackenzie; CARIN Mays; CARIN Briseno; KEARA Mello; Dr. Adis Guzman DO; Dr. Marco Parker DO; Dr. All Robbins,; Dr. Keenan Mars, ; Dr. Gordon Mackenzie MD; Dr. Deven Mena MD; KEARA More; No Primary Care Physician~ Signed [facility] Work Phone: [phone]) 715-190412-21-2023 History and physical note Author Adis Gould [facility] August 03, 2023 3:13am Note Date/Time August 03, 2023 2:26am [facility] Medical Records Department [address] [place] [address] H&P Exam - Hospitalist 08/03/23 0220 MR#: [id number] Acct: [id number] Name: MYLES LEON Rep #:[id number] : 1955 68 From: Adis Aguilar DO PCP: Care Physician,No Primary Status :ADM IN Location: [facility] [place]792-1 HPI - General General Date of Admission: 08/03/23 Date of Service: 08/03/23 Chief Complaint: Left hip pain after fall. HPI Narrative MYLES LEON, is a 68 M with a past medical history of essential hypertension,obesity; with BMI of 32.6 this admission, recent cataract surgery last week on his Left eye and history of tobacco abuse who presents to [facility] ER complaining of left hip pain after fall. Mr. Leon reports his symptoms began approximately 1 hour prior to arrival while he was walking downstairs when he suddenly lost his balance causing him to slip and fall onto his left hip. His left hip immediately became severely painful, with a shortened and externally rotated left leg with subsequent inability to ambulate. He also admits to hitting his head with significant lateral, periorbital bruising but he denies loss of consciousness associated with this fall. He denies associated fever, chills, nausea, vomiting, recent illness, recent medication changes, history of significant heart disease or previous problems with anesthesia. In the ER his x-rays were positive for evidence of a left femoral neck fracture with varus angulation complicated by laboratory evidence of hypokalemia of 3.3 mmol/L present on admission and suspected acute kidney injury with a creatinine of 1.95 mg/dL and a BUN of 28 mg/dL present on admission (with no baseline available for comparison at this time) and he was then admitted to the general medical floor for ongoing care for stay that is expected to be greater than 48 hours. [facility] Medical History Hypertension Home Medications lisinopril 10 mg-hydrochlorothiazide 12.5 mg tablet 1 tab PO DAILY htn 08/03/23 [History Last Taken Unknown] Allergy/AdvReac Type Severity Reaction Status Date / Time No Known Allergies Allergy Verified 08/03/23 00:09 Social History Smoking Status: Current every day smoker tobacco type: cigarettes ROS ROS Narrative Review of systems: Constitutional: Patient denies fever or chills. Eyes: Patient admits to bruising around his lateral left orbit but denies visualchanges. ENT: Patient denies runny nose, ear pain or sore throat. Cardiovascular: Patient denies chest pain, chest pressure or palpitations. Respiratory: Patient denies shortness of breath or cough. Gastrointestinal: Patient denies abdominal pain nausea or vomiting. Genitourinary patient denies dysuria, hematuria or urinary frequency. Neurologic: Patient denies headache, dizziness or focal neurologic deficits. Allergic: Patient denies lip swelling, tongue swelling or urticaria. Integumentary: Patient denies abscess, abrasion or rash. Hematologic: Patient denies easy bleeding or easy bruisability. Psychiatric: Patient denies depression or anxiety. 14 point review systems otherwise negative except for positives noted above in HPI. Vital Signs Vital Signs Vital Signs: 08/02/23 23:59 08/03/23 00:03 Temperature 97.4 F L Temperature Source Temporal Pulse Rate 94 Respiratory Rate 18 Respiratory Effort Normal Blood Pressure 142/82 H Blood Pressure Mean 102 Pulse Ox 97 Oxygen Delivery Method Room Air Room Air Weight Weight: 226 lb 13.69 oz Body Mass Index (BMI) 32.5 Physical Exam Const alert, oriented x3, average body habitus and healthy appearing Constitutional Narrative: Mild distress noted. General Appearance: cooperative HEENT normocephalic, head/scalp atraumatic, hearing grossly normal bilaterally and moist oral mucous membranes Eyes PERRL, EOMs intact bilaterally and conjunctivae normal Neck no lymphadenopathy, supple and no JVD Resp normal respiratory effort, no retractions, no use of accessory muscles and clearto auscultation bilaterally Cardio regular rate and regular rhythm GI normal to inspection, nondistended, normoactive bowel sounds, soft to palpation,non-tender and non-distended Extremity Extremity Narrative: Left lower extremity shortened externally rotated with no signs of neurovascularcompromise. Good 2+ pulses throughout. Good capillary refill. Skin Skin Narrative: Patient has no evidence of rash at this time. Neuro oriented x3, CN's II-XII intact bilaterally, moves all extremities and no focal motor deficits Sensorium / Orientation: awake, oriented to person, oriented to place and oriented to time Speech: speech normal Psych affect normal Results Medical Records Data Attestation: I reviewed the patient's medical records Lab / Micro Data Attestation: I reviewed the patient's lab results. 08/03/23 00:22 08/03/23 00:22 Labs: Laboratory Results - last 24 hr 08/03/23 00:22: WBC 9.1, RBC 4.80, Hgb 14.4, Hct 43.0, MCV 89.6, MCH 30.0, MCHC 33.5, RDW Std Deviation 45.0 H, RDW Coeff of Cheryl 13.8, Plt Count 183, MPV 10.0, Sodium 136, Potassium 3.3 L, Chloride 105, Carbon Dioxide 22.0, Anion Gap 9, BUN28 H, Creatinine 1.95 H, Estim Creat Clear Calc 37.44, Est GFR (MDRD) Af Amer 44L, Est GFR (MDRD) Non-Af 37 L, BUN/Creatinine Ratio 14.4, Glucose 137 H, Calcium9.5 Imagaing Radiology Impression Brain CT 08/03/23 00:07 IMPRESSION: No acute intracranial finding. Electronically Signed: Manoj Dominguez MD at 1:23 EST Reading Location ID and State: [facility] / [place] Tel , Service support , Cervical Spine CT 08/03/23 00:07 IMPRESSION: No evidence of acute cervical spinal fracture or spondylolisthesis. Mild to moderate degenerative change throughout the cervical spine. Electronically Signed: Manoj Dominguez MD at 1:27 EST , Lumbar Spine CT 08/03/23 00:07 IMPRESSION: No evidence of acute lumbar spinal fracture or spondylolisthesis. Mild to moderate degenerative change throughout the lumbar spine. Electronically Signed: Manoj Dominguez MD at 1:21 EST , Chest X-Ray 08/03/23 01:00 IMPRESSION: No acute pulmonary finding. Electronically Signed: Manoj Dominguez MD at 1:27 EST , Femur X-Ray 08/03/23 01:00 IMPRESSION: Left femoral neck fracture with varus angulation. Electronically Signed: Manoj Dominguez MD at 1:29 EST , Pelvis X-Ray 08/03/23 01:00 IMPRESSION: Left femoral neck fracture. Electronically Signed: Manoj Dominguez MD at 1:33 EST , Assessment & Plan Assessment/Plan (1) Fracture of femoral neck, left: QUALIFIERS: Encounter type: initial encounter Fracture type: closed Qualified Code(s): S72.002A - Fracture of unspecified part of neck of left femur, initial encounter for closed fracture (2) Hypokalemia: (3) Essential hypertension: (4) ARCHANA (acute kidney injury): (5) Obesity (BMI 30.0-34.9): PLAN: Plan 1. Left femoral neck fracture after mechanical fall - Admit to general medical floor. Apply 5 pounds of Messina's traction with patient to be on bedrest until ORIF can be completed. Give Tylenol as needed for mild to moderate level 1-5 out of 10 pain or fever. Give morphine IV as needed for severe 6-10 out of 10 pain. Finally, we will consult the orthopedic surgeon on-call to see this patient on rounds in the a.m. for further recommendations with help appreciated in advance. 2. Hypokalemia of 3.3 mmol/L present on admission complicating #1 - Give supplemental potassium chloride and then recheck BMP in the a.m. to ensure improvement. 3. Suspected acute kidney injury with elevated serum creatinine of 1.95 mg/dL and BUN of 28 mg/dL present on admission compounding #1 & #2 - Give volume resuscitation and recheck BMP in the a.m. to confirm suspicion 4. Essential hypertension - Hold lisinopril/HCTZ for now in light of #3. Give IV hydralazine as needed for systolic blood pressure greater than or equal to 160 mmHg. 5. Tobacco abuse - Tobacco cessation will be strongly encouraged with nicotine patch offered to control cravings. 6. Obesity; with BMI of 32.6 this admission - Weight loss will be recommended. Check TSH. 7. Recent surgery remove cataract from left eye last week - Stable. 8. DVT prophylaxis - Place RLE SCD and avoid blood thinners preoperatively in cases of traumatic fracture due to increased risk of bleeding complications. Orthopedic team to decide upon postoperative DVT prophylaxis. Total time: Approximately 55 minutes. Charges/Coding Visit Charges Inpatient E&M: 20116 Init Hosp L2 08/03/23312 <Electronically signed by Adis Guzman DO> Cosigner Signature (if applicable): CC: Dr. Adis Guzman DO; No Primary Care Physician~ Signed [facility] Work Phone: 1(234) 599-228212-21-2023 Discharge summary Author Tyrell Beltran [facility] August 03, 2023 2:25am Note Date/Time August 03, 2023 12:13am [facility] Medical Records Department [address] [place] [address] Emergency Department Summary 08/03/23 MR#: [id number] Acct: [id number] Name: MYLES LEON Rep #:[id number] : 1955 68 From: Tyrell Lyons PCP: Care Physician,No Primary Status :REG ER Location: ED HPI HPI - Fall History of Present Illness Chief Complaint: Fall PFSH PFSH Medical History (Updated 08/03/23 @ 00:08 by Jes Soriano) Hypertension Home Medications lisinopril 10 mg-hydrochlorothiazide 12.5 mg tablet 1 tab PO DAILY 08/03/23 [History Last Taken Unknown] Allergy/AdvReac Type Severity Reaction Status Date / Time No Known Allergies Allergy Verified 08/03/23 00:09 Social History Smoking Status: Current every day smoker tobacco type: cigarettes EXAM Physical Exam Const Vital Signs: 08/02/23 23:59 08/03/23 00:03 Temperature 97.4 F L Temperature Source Temporal Pulse Rate 94 Respiratory Rate 18 Respiratory Effort Normal Blood Pressure 142/82 H Blood Pressure Mean 102 Pulse Ox 97 Oxygen Delivery Method Room Air Room Air MDM MDM MDM Narrative Medical decision making narrative: HISTORY OF PRESENT ILLNESS: 68-year-old male presents with mechanical fall from standing. Patient notes he was walking downstairs to him to grab a ledge when he slipped and fell injuring his left hip and hitting his head. Did not lose consciousness. He does not take blood thinners. Complains of severe left hip pain. REVIEW OF SYSTEMS: Pertinent positives: Wound, left hip pain, left knee pain Pertinent negatives: Loss of consciousness, chest pain or shortness of breath PHYSICAL EXAM: Nursing triage notes reviewed, Vital signs reviewed Primary Survey Airway: Intact Breathing: Bilateral breath sounds Circulation: Palpable bilateral femorals, Palpable bilateral radial, Palpable bilateral DP and Palpable bilateral PT Disability / Spine precautions GCS Score: Eye Openin Verbal Response: 5 Motor Response: 6 Secondary Survey Constitutional: Please see MDM Head: Abrasion/laceration noted to the left eyebrow, NO jaw malocclusion, No Cephalohematoma, Eye: Pupils equal round and reactive to light, Extraocular muscles intact and Noperiorbital ecchymosis or stepoff, no evidence of entrapment ENT: Oropharynx clear, no lacerations, no hemotympanum, no raccoon eyes or starkey sign Cervical spine / Neck: No cervical spine bony tenderness, crepitance, or stepoffdeformity Trachea midline Lungs: Clear to auscultation, No asymmetric rise and No crepitus, no flail chest Cardiac: Regular rate and rhythm and No murmurs, intact pulses in all 4 extremities. Abdomen: Soft, Nontender and No rebound Pelvis: Pelvis stable to compression : No evidence of genital injury Back: TTP over lower lumbar spine no step-offs or deformities to the CT or L- spine Neuro: At baseline, intact strength and sensation in bilateral upper and lower extremities. 2+ patellar reflexes bilaterally. Intact sensation L1-S1 dermatomal distributions. Intact 5/5 strength in hip flexion (T12-L3). Knee extension (L2- L4). Ankle dorsiflexion (L4-L5). Ankle plantar flexion (S1). Great toe extension (L5). 2+ patellar and Achilles DTRs. Extremities: TTP over the left greater trochanter, left lower extremity shortened externally rotated, left knee TTP. Psych: Normal affect Nursing triage notes reviewed, Vital signs reviewed MEDICAL DECISION MAKING: Chief Complaint: Fall, head trauma, left hip pain External records reviewed: No recent ED visits, no recent Fang imaging of the head Factors affecting care: Hypertension Social determinants of health: Current daily smoker History obtained from others: EMS Consults: Internal medicine, orthopedic surgery MDM Narrative: Patient was initially hemodynamically stable, afebrile and nontoxic-appearing. Primary secondary trauma survey concerning for intracranial normalities, lumbar spine abnormalities, left hip abnormality I considered the following differential diagnosis: Intracranial hemorrhage, cervical spine bony abnormality, breast pump normality, fractured hip, fracturedfemur, fracture knee IV is placed. Tetanus updated. Fluid bolus given. Morphine given for pain Zofran given for anticipated nausea. Basic labs obtained. Imaging obtained of the injured areas. ALL IMAGES (IF OBTAINED) HAVE BEEN PERSONALLY REVIEWED AND INTERPRETED BY MYSELF. X-ray of the patient's pelvis, chest and femur personally viewed myself. There is no signs of intrathoracic abnormalities on chest x-ray, pelvic x-ray/hip x-ray was consistent with a left femoral neck fracture. Urologist agreed my interpretation CT scan of the brain, cervical spine lumbar spine were negative for acute traumatic injury BMP with mild hypokalemia, ARCHANA versus CKD CBC with no leukocytosis or anemia or thrombocytopenia The synthesis of the patient's history, physical, vital signs, labs, images suggest the left more neck fracture. He was given appropriate pain control IV narcotics. I did speak with the orthopedic doctor on-call Dr. Robbins to evaluatethe patient as an inpatient. Also spoke to the internal medicine doctor Dr. Guzman who agreed to admit the patient. Terms of patient's facial injury. There is no obvious laceration noted there isan abrasion and bruising to the left lateral orbit. Steri-Strips were placed over small area of abrasion the patient's left orbit. There is no ocular involvement noted. No entrapment. The patient and/or family, caregivers express understanding. The patient and/orfamily, caregivers agrees with the plan. Shared decision making: I will have a discussion with the patient and or visitors regarding risk/benefits of further testing or admission. They will be made aware of of the risk/benefits inherent in this decision they will be given the opportunity to voice understanding. Total critical care time today provided was at least 0 [] minutes. This excludes separately billable procedures. Critical care time (if documented) is secondary to the patient having high probability of clinically significant/life threatening deterioration in the patient's condition which required my urgent intervention. Impression: 1. Fall 2. Left femoral neck fracture 3. Closed head injury 4. Hypokalemia 5. Acute kidney injury Dispo: Admit to inpatient, MedSur full Lab Data Labs: Laboratory Results - last 24 hr 08/03/23 00:22 WBC 9.1 RBC 4.80 Hgb 14.4 Hct 43.0 MCV 89.6 MCH 30.0 MCHC 33.5 RDW Std Deviation 45.0 H RDW Coeff of Cheryl 13.8 Plt Count 183 MPV 10.0 Sodium 136 Potassium 3.3 L Chloride 105 Carbon Dioxide 22.0 Anion Gap 9 BUN 28 H Creatinine 1.95 H Estim Creat Clear Calc 37.44 Est GFR (MDRD) Af Amer 44 L Est GFR (MDRD) Non-Af 37 L BUN/Creatinine Ratio 14.4 Glucose 137 H Calcium 9.5 Radiography Diagnostic Testing: Clinical Impression(s) from Imaging Studies Brain CT 08/03/23 00:07 IMPRESSION: No acute intracranial finding. Electronically Signed: Manoj Dominguez MD at 1:23 EST , Cervical Spine CT 08/03/23 00:07 IMPRESSION: No evidence of acute cervical spinal fracture or spondylolisthesis. Mild to moderate degenerative change throughout the cervical spine. Electronically Signed: Manoj Dominguez MD at 1:27 EST , Lumbar Spine CT 08/03/23 00:07 IMPRESSION: No evidence of acute lumbar spinal fracture or spondylolisthesis. Mild to moderate degenerative change throughout the lumbar spine. Electronically Signed: Manoj Dominguez MD at 1:21 EST , Chest X-Ray 08/03/23 01:00 IMPRESSION: No acute pulmonary finding. Electronically Signed: Manoj Dominguez MD at 1:27 EST , Femur X-Ray 08/03/23 01:00 IMPRESSION: Left femoral neck fracture with varus angulation. Electronically Signed: Manoj Dominguez MD at 1:29 EST , Pelvis X-Ray 08/03/23 01:00 IMPRESSION: Left femoral neck fracture. Electronically Signed: Manoj Dominguez MD at 1:33 EST , Discharge Plan Triage Chief Complaint: Fall ED Provider: Tyrell Beltran Dx/Rx/DC Orders Prescriptions: No Action lisinopril-hydrochlorothiazide 10-12.5 mg tablet 1 tab PO DAILY Patient Comments: Take 2 tablets by mouth every morning. Primary Care Provider: Care Physician,No Primary Referrals: Care Physician,No Primary [Primary Care Provider] - What to do if you have Problems For any increased pain, shortness of breath, bleeding, nausea or vomiting, chestpain, or any unexpected problems, contact your Primary Care Provider. Call [facility] ([phone]) or report to the closest Emergency Room. Call 911 if necessary. 08/03/23224 <Electronically signed by Tyrell Beltran DO> Cosigner Signature (if applicable): CC: No Primary Care Physician ~ Signed [facility] Work Phone: 1(612) 341-713712-21-2023 Discharge summary Author Tyrell Beltran [facility] August 03, 2023 2:25am Note Date/Time August 03, 2023 12:13am [facility] Medical Records Department [address] [place] [address] Emergency Department Summary 08/03/23 MR#: [id number] Acct: [id number] Name: MYLES LEON Rep #:[id number] : 1955 68 From: Tyrell Lyons PCP: Care Physician,No Primary Status :REG ER Location: ED HPI HPI - Fall History of Present Illness Chief Complaint: Fall PFSH PFSH Medical History (Updated 08/03/23 @ 00:08 by Jes Soriano) Hypertension Home Medications lisinopril 10 mg-hydrochlorothiazide 12.5 mg tablet 1 tab PO DAILY 08/03/23 [History Last Taken Unknown] Allergy/AdvReac Type Severity Reaction Status Date / Time No Known Allergies Allergy Verified 08/03/23 00:09 Social History Smoking Status: Current every day smoker tobacco type: cigarettes EXAM Physical Exam Const Vital Signs: 08/02/23 23:59 08/03/23 00:03 Temperature 97.4 F L Temperature Source Temporal Pulse Rate 94 Respiratory Rate 18 Respiratory Effort Normal Blood Pressure 142/82 H Blood Pressure Mean 102 Pulse Ox 97 Oxygen Delivery Method Room Air Room Air [facility] Narrative Medical decision making narrative: HISTORY OF PRESENT ILLNESS: 68-year-old male presents with mechanical fall from standing. Patient notes he was walking downstairs to him to grab a ledge when he slipped and fell injuring his left hip and hitting his head. Did not lose consciousness. He does not take blood thinners. Complains of severe left hip pain. REVIEW OF SYSTEMS: Pertinent positives: Wound, left hip pain, left knee pain Pertinent negatives: Loss of consciousness, chest pain or shortness of breath PHYSICAL EXAM: Nursing triage notes reviewed, Vital signs reviewed Primary Survey Airway: Intact Breathing: Bilateral breath sounds Circulation: Palpable bilateral femorals, Palpable bilateral radial, Palpable bilateral DP and Palpable bilateral PT Disability / Spine precautions GCS Score: Eye Openin Verbal Response: 5 Motor Response: 6 Secondary Survey Constitutional: Please see MDM Head: Abrasion/laceration noted to the left eyebrow, NO jaw malocclusion, No Cephalohematoma, Eye: Pupils equal round and reactive to light, Extraocular muscles intact and Noperiorbital ecchymosis or stepoff, no evidence of entrapment ENT: Oropharynx clear, no lacerations, no hemotympanum, no raccoon eyes or starkey sign Cervical spine / Neck: No cervical spine bony tenderness, crepitance, or stepoffdeformity Trachea midline Lungs: Clear to auscultation, No asymmetric rise and No crepitus, no flail chest Cardiac: Regular rate and rhythm and No murmurs, intact pulses in all 4 extremities. Abdomen: Soft, Nontender and No rebound Pelvis: Pelvis stable to compression : No evidence of genital injury Back: TTP over lower lumbar spine no step-offs or deformities to the CT or L- spine Neuro: At baseline, intact strength and sensation in bilateral upper and lower extremities. 2+ patellar reflexes bilaterally. Intact sensation L1-S1 dermatomal distributions. Intact 5/5 strength in hip flexion (T12-L3). Knee extension (L2- L4). Ankle dorsiflexion (L4-L5). Ankle plantar flexion (S1). Great toe extension (L5). 2+ patellar and Achilles DTRs. Extremities: TTP over the left greater trochanter, left lower extremity shortened externally rotated, left knee TTP. Psych: Normal affect Nursing triage notes reviewed, Vital signs reviewed MEDICAL DECISION MAKING: Chief Complaint: Fall, head trauma, left hip pain External records reviewed: No recent ED visits, no recent Fang imaging of the head Factors affecting care: Hypertension Social determinants of health: Current daily smoker History obtained from others: EMS Consults: Internal medicine, orthopedic surgery MDM Narrative: Patient was initially hemodynamically stable, afebrile and nontoxic-appearing. Primary secondary trauma survey concerning for intracranial normalities, lumbar spine abnormalities, left hip abnormality I considered the following differential diagnosis: Intracranial hemorrhage, cervical spine bony abnormality, breast pump normality, fractured hip, fracturedfemur, fracture knee IV is placed. Tetanus updated. Fluid bolus given. Morphine given for pain Zofran given for anticipated nausea. Basic labs obtained. Imaging obtained of the injured areas. ALL IMAGES (IF OBTAINED) HAVE BEEN PERSONALLY REVIEWED AND INTERPRETED BY MYSELF. X-ray of the patient's pelvis, chest and femur personally viewed myself. There is no signs of intrathoracic abnormalities on chest x-ray, pelvic x-ray/hip x-ray was consistent with a left femoral neck fracture. Urologist agreed my interpretation CT scan of the brain, cervical spine lumbar spine were negative for acute traumatic injury BMP with mild hypokalemia, ARCHANA versus CKD CBC with no leukocytosis or anemia or thrombocytopenia The synthesis of the patient's history, physical, vital signs, labs, images suggest the left more neck fracture. He was given appropriate pain control IV narcotics. I did speak with the orthopedic doctor on-call Dr. Robbins to evaluatethe patient as an inpatient. Also spoke to the internal medicine doctor Dr. Guzman who agreed to admit the patient. Terms of patient's facial injury. There is no obvious laceration noted there isan abrasion and bruising to the left lateral orbit. Steri-Strips were placed over small area of abrasion the patient's left orbit. There is no ocular involvement noted. No entrapment. The patient and/or family, caregivers express understanding. The patient and/orfamily, caregivers agrees with the plan. Shared decision making: I will have a discussion with the patient and or visitors regarding risk/benefits of further testing or admission. They will be made aware of of the risk/benefits inherent in this decision they will be given the opportunity to voice understanding. Total critical care time today provided was at least 0 [] minutes. This excludes separately billable procedures. Critical care time (if documented) is secondary to the patient having high probability of clinically significant/life threatening deterioration in the patient's condition which required my urgent intervention. Impression: 1. Fall 2. Left femoral neck fracture 3. Closed head injury 4. Hypokalemia 5. Acute kidney injury Dispo: [facility] Data Labs: Laboratory Results - last 24 hr 08/03/23 00:22 WBC 9.1 RBC 4.80 Hgb 14.4 Hct 43.0 MCV 89.6 MCH 30.0 MCHC 33.5 RDW Std Deviation 45.0 H RDW Coeff of Cheryl 13.8 Plt Count 183 MPV 10.0 Sodium 136 Potassium 3.3 L Chloride 105 Carbon Dioxide 22.0 Anion Gap 9 BUN 28 H Creatinine 1.95 H Estim Creat Clear Calc 37.44 Est GFR (MDRD) Af Amer 44 L Est GFR (MDRD) Non-Af 37 L BUN/Creatinine Ratio 14.4 Glucose 137 H Calcium 9.5 Radiography Diagnostic Testing: Clinical Impression(s) from Imaging Studies Brain CT 08/03/23 00:07 IMPRESSION: No acute intracranial finding. Electronically Signed: Manoj Dominguez MD at 1:23 EST , Cervical Spine CT 08/03/23 00:07 IMPRESSION: No evidence of acute cervical spinal fracture or spondylolisthesis. Mild to moderate degenerative change throughout the cervical spine. Electronically Signed: Manoj Dominguez MD at 1:27 EST , Lumbar Spine CT 08/03/23 00:07 IMPRESSION: No evidence of acute lumbar spinal fracture or spondylolisthesis. Mild to moderate degenerative change throughout the lumbar spine. Electronically Signed: Manoj Dominguez MD at 1:21 EST , Chest X-Ray 08/03/23 01:00 IMPRESSION: No acute pulmonary finding. Electronically Signed: Manoj Dominguez MD at 1:27 EST , Femur X-Ray 08/03/23 01:00 IMPRESSION: Left femoral neck fracture with varus angulation. Electronically Signed: Manoj Dominguez MD at 1:29 EST , Pelvis X-Ray 08/03/23 01:00 IMPRESSION: Left femoral neck fracture. Electronically Signed: Manoj Dominguez MD at 1:33 EST , Discharge Plan Triage Chief Complaint: Fall ED Provider: Tyrell Beltran Dx/Rx/DC Orders Prescriptions: No Action lisinopril-hydrochlorothiazide 10-12.5 mg tablet 1 tab PO DAILY Patient Comments: Take 2 tablets by mouth every morning. Primary Care Provider: Care Physician,No Primary Referrals: Care Physician,No Primary [Primary Care Provider] - What to do if you have Problems For any increased pain, shortness of breath, bleeding, nausea or vomiting, chestpain, or any unexpected problems, contact your Primary Care Provider. Call [facility] ([phone]) or report to the closest Emergency Room. Call 911 if necessary. 08/03/23224 <Electronically signed by Tyrell Beltran DO> Cosigner Signature (if applicable): CC: No Primary Care Physician ~ Signed [facility] Work Phone: 1(743) 932-664011-21-2023 Miscellaneous Notes* Telephone Encounter - Blake Loera - 07/04/2023 8:27 AM EST Received pre op clearance form from [facility]. Placed in provider's inbox for review. Route to [place] fax [phone] documented in this encounterBerger Hospital11-14-2023 Miscellaneous Notes* Telephone Encounter - Kim Ross - 06/27/2023 1:46 PM EST Opened in error. Kim Mcclelland documented in this encounterBerger Hospital10-23-2023 History of Present illness Narrative* Ochoa Galindo APRN.DIRECTOR TRANSPORTATION - 06/05/2023 3:11 PM EDT This note was created using [place] [employer]. Subjective Myles Leon is a 68 year old male. Myles is here today for a follow-up since starting BP medications and pre- operative clearance for cataract surgery. He forgot the form for provider to complete for the eye doctor. He recently stopped smoking since last appointment because the provider told him to. Is taking lisinopril and HCTZ, states he [...] had any gallbladder disease?No Are there any bahai or cultural practices that may alter your [...] 1 Each once daily. (Patient not taking: Reportedon 06/05/2023) FAMILY HISTORY Problem Relation Age of [...] 123/80 Pulse 94 Ht 177.8 cm (5' 10) Wt 102.5 kg (226 lb) BMI 32.43 [...] to establish care. Chloe Alvarado, JAYME, RN (ROLL HANDLER Student) TEACHING PROVIDER (Physician/PA/SHRIMPING BOAT CAPTAIN) NOTE OF PERSONAL INVOLVEMENT IN CARE: I have personally seen and examined the patient and performed the medical decision-making components. I have reviewed the Advanced Practice Registered Nurse (SHRIMPING BOAT CAPTAIN) Student's documentation and verified the findings in the note as written. Any additions or changes are noted in bold/italics. Signature: Ochoa Galindo Date: 06/05/2023 Time: 4:25 PM documented in this encounterBerger Hospital10-19-2023 Miscellaneous Notes* Telephone Encounter - Blake Loera - 06/01/2023 2:02 PM EDT Pharmacy verified in [facility] Patient has been identified by name [...] BP: 05/08/2023 146/100[manual[ Please advise. Blake Loera * Telephone Encounter - Shilpa Ventura - 06/01/2023 1:56 PM EDT Patient is out of the bp meds. * Telephone Encounter - Shilpa Ventura - 06/01/2023 1:55 PM EDT Pharmacy verified in [facility] Patient has been identified by name [...] (229 lb) Not applicable Please advise. Shilpa Epps Pss documented in this encounterBerger Hospital09-25-2023 History of Present illness Narrative* Ochoa Galindo APRN.DIRECTOR TRANSPORTATION - 05/08/2023 2:22 PM EDT This note was created using [employer]. Subjective Myles Leon is a 67 year old male. Patient [...] 169/97 Pulse 76 Ht 177.8 cm (5' 10) Wt 102.5 kg (226 lb) BMI 32.43 kg/m BP 146/100 (BP Site: Right Arm, BP Position: Sitting, BP Cuff Size: Large Adult) Pulse 76 Ht 177.8 cm (5' 10) Wt 102.5 kg (226 lb) BMI 32.43 [...] at elevated risk due to blood pressure, age,and sex. Recommend to get blood pressure under control and quit smoking, will re-evaluate at futureappointment. Ochoa Galindo APRN.CNP documented in this encounterBerger Hospital09-20-2023 Miscellaneous Notes* Telephone Encounter - Ochoa Galindo APRN.CNP - 05/03/2023 3:15 PM EDT Rx re-sent. Ochoa Galindo APRN.CNP Requested Prescriptions Signed Prescriptions Disp Refills Blood Pressure Monitor 1 Each 0 Si Each once daily. Authorizing Provider: OCHOA GALINDO Pharmacy Information Pharmacy Address Telephone [facility] [id number] [place] [address] * Telephone Encounter - Jo Ann Delgado - 05/03/2023 2:29 PM EDT [facility] calling in regard to request for blood pressure cuff. The prescription needs to state blood pressure monitor. Any questions, please call [phone] Ext 3 documented in this encounterBerger Hospital09-20-2023 Miscellaneous Notes* Telephone Encounter - Blake Loera - 05/03/2023 2:25 PM EDT Called and informed pt. * Telephone Encounter - Ochoa Galindo APRN.CNP - 05/03/2023 10:41 AM EDT Rx re-sent, let patient know. Ochoa Galindo APRN.TARA * Telephone Encounter - Donna Song RN - 05/03/2023 10:12 AM EDT Selina from [facility] calling. They can not accept script for blood pressure cuff that was sent 05/01. New script needs written for Blood pressure Monitor- needs ICD 10 code with reason for monitor as well. Can fax to [phone]. Selina # [phone] ext 3 Donna Song RN documented in this encounterBerger Hospital09-19-2023 Miscellaneous Notes* Telephone Encounter - Geneva Vang - 05/02/2023 5:47 PM EDT Pharmacy calling requesting to speak to nurse. Transferred to nurse line. [facility]* Diagnosis Hypertension, essential- Primary Unspecified essential hypertension documented in this encounter [facility]* Diagnosis Hypertension, essential- Primary Unspecified essential hypertension documented in this encounter [facility]* Diagnosis Hypertension, essential- Primary Unspecified essential hypertension Elevated serum creatinine Other nonspecific findings on examination of blood Elevated PSA Elevated prostate specific antigen (PSA) Hypertriglyceridemia Pure hyperglyceridemia documented in this encounter [facility]* Diagnosis Hypertension, essential Unspecified essential hypertension documented in this encounter [facility] note* Diagnosis Pre-op evaluation- Primary Preoperative examination, unspecified Hypertension, essential Unspecified essential hypertension Cataract of both eyes, unspecified cataract type Elevated serum creatinine Other nonspecific findings on examination of blood Hypertriglyceridemia Pure hyperglyceridemia documented in this encounter [facility]* Diagnosis Onset Date Resolution Status ARCHANA (acute kidney injury) [place] Essential hypertension acute Fracture of femoral neck, left acute Hypokalemia acute Obesity (BMI 30.0-34.9) acut e [facility] Work Phone: Evaluation note* Diagnosis Onset Date Resolution Status ARCHANA (acute kidney injury) [place] Essential hypertension acute Fracture of femoral neck, left acute Hypokalemia acute Obesity (BMI 30.0-34.9) acut e Status post hip hemiarthroplasty acute [facility] Work Phone: Evaluation note* Diagnosis Onset Date Resolution Status ARCHANA (acute kidney injury) [place] Fracture of femoral neck, left resolved Hypokalemia resolved Status post hip hemiarthroplasty resolved ARCHANA (acute kidney injury) [place] Encounter for wellness examination acute S/P total left hip arthroplasty acute Screening for colon cancer a cute Screening for lung cancer [place] Tobacco use acute Hypertension chronic [facility] Work Phone: Evaluation note* Diagnosis Pre-op evaluation- Primary Preoperative examination, unspecified Cataract of right eye, unspecified cataract type [facility] this encounter [facility]* Diagnosis Onset Date Resolution Status ARCHANA (acute kidney injury) [place] Fracture of femoral neck, left resolved Hypokalemia resolved Status post hip hemiarthroplasty resolved ARCHANA (acute kidney injury) [place] Encounter for wellness examination acute S/P total left hip arthroplasty acute Screening for colon cancer a cute Screening for lung cancer [place] Tobacco use acute Hypertension chronic At risk for cardiovascular event acute Elevated PSA acute Hypertriglyceridemia acute Nephrolithiasis acute Prediabetes acute Renal cyst acute Tobacco use acute CKD (chronic kidney disease) stage 3, GFR 30-59 ml/min chronic Hypertension [facility] Work Phone: Evaluation note* Diagnosis Hypertension, essential Unspecified essential hypertension documented [facility] this encounter [facility]* Diagnosis Onset Date Resolution Status Admit Date Renal cyst acute February 13, 2025 1:10pm Screening for colon cancer acute February 13, 2025 1:10pm Swelling of lower leg acute Feb 1:10pm Tobacco dependence acute February 132024 1:10pm CKD (chronic kidney disease) stage 3, GFR 30-59 ml/min chronic February 132024 1:10pm Hypertension chronic February 13 1:10pm [facility] Work Phone: History and physical note Author Adis Gould [facility] August 03, 2023 3:13am Note Date/Time August 03, 2023 2:26am [facility] Medical Records Department [address] [place] [address] H&P Exam - Hospitalist 08/03/230 MR#: [id number] Acct: [id number] Name: MYLES LEON Rep #:[id number] : 1955 68 From: Adis Aguilar DO PCP: Care Physician,No Primary Status :ADM IN Location: [facility] HA395-8 HPI - General General Date of Admission: 08/03/23 Date of Service: 08/03/23 Chief Complaint: Left hip pain after fall. HPI Narrative MYLES LEON, is a 68 M with a past medical history of essential hypertension,obesity; with BMI of 32.6 this admission, recent cataract surgery last week on his Left eye and history of tobacco abuse who presents to [facility] ER complaining of left hip pain after fall. Mr. Leon reports his symptoms began approximately 1 hour prior to arrival while he was walking downstairs when he suddenly lost his balance causing him to slip and fall onto his left hip. His left hip immediately became severely painful, with a shortened and externally rotated left leg with subsequent inability to ambulate. He also admits to hitting his head with significant lateral, periorbital bruising but he denies loss of consciousness associated with this fall. He denies associated fever, chills, nausea, vomiting, recent illness, recent medication changes, history of significant heart disease or previous problems with anesthesia. In the ER his x-rays were positive for evidence of a left femoral neck fracture with varus angulation complicated by laboratory evidence of hypokalemia of 3.3 mmol/L present on admission and suspected acute kidney injury with a creatinine of 1.95 mg/dL and a BUN of 28 mg/dL present on admission (with no baseline available for comparison at this time) and he was then admitted to the general medical floor for ongoing care for stay that is expected to be greater than 48 hours. [facility] Medical History Hypertension Home Medications lisinopril 10 mg-hydrochlorothiazide 12.5 mg tablet 1 tab PO DAILY htn 08/03/23 [History Last Taken Unknown] Allergy/AdvReac Type Severity Reaction Status Date / Time No Known Allergies Allergy Verified 08/03/23 00:09 Social History Smoking Status: Current every day smoker tobacco type: cigarettes ROS ROS Narrative Review of systems: Constitutional: Patient denies fever or chills. Eyes: Patient admits to bruising around his lateral left orbit but denies visualchanges. ENT: Patient denies runny nose, ear pain or sore throat. Cardiovascular: Patient denies chest pain, chest pressure or palpitations. Respiratory: Patient denies shortness of breath or cough. Gastrointestinal: Patient denies abdominal pain nausea or vomiting. Genitourinary patient denies dysuria, hematuria or urinary frequency. Neurologic: Patient denies headache, dizziness or focal neurologic deficits. Allergic: Patient denies lip swelling, tongue swelling or urticaria. Integumentary: Patient denies abscess, abrasion or rash. Hematologic: Patient denies easy bleeding or easy bruisability. Psychiatric: Patient denies depression or anxiety. 14 point review systems otherwise negative except for positives noted above in HPI. Vital Signs Vital Signs Vital Signs: 08/02/23 23:59 08/03/23 00:03 Temperature 97.4 F L Temperature Source Temporal Pulse Rate 94 Respiratory Rate 18 Respiratory Effort Normal Blood Pressure 142/82 H Blood Pressure Mean 102 Pulse Ox 97 Oxygen Delivery Method Room Air Room Air Weight Weight: 226 lb 13.69 oz Body Mass Index (BMI) 32.5 Physical Exam Const alert, oriented x3, average body habitus and healthy appearing Constitutional Narrative: Mild distress noted. General Appearance: cooperative HEENT normocephalic, head/scalp atraumatic, hearing grossly normal bilaterally and moist oral mucous membranes Eyes PERRL, EOMs intact bilaterally and conjunctivae normal Neck no lymphadenopathy, supple and no JVD Resp normal respiratory effort, no retractions, no use of accessory muscles and clearto auscultation bilaterally Cardio regular rate and regular rhythm GI normal to inspection, nondistended, normoactive bowel sounds, soft to palpation,non-tender and non-distended Extremity Extremity Narrative: Left lower extremity shortened externally rotated with no signs of neurovascularcompromise. Good 2+ pulses throughout. Good capillary refill. Skin Skin Narrative: Patient has no evidence of rash at this time. Neuro oriented x3, CN's II-XII intact bilaterally, moves all extremities and no focal motor deficits Sensorium / Orientation: awake, oriented to person, oriented to place and oriented to time Speech: speech normal Psych affect normal Results Medical Records Data Attestation: I reviewed the patient's medical records Lab / Micro Data Attestation: I reviewed the patient's lab results. 08/03/23 00:22 08/03/23 00:22 Labs: Laboratory Results - last 24 hr 08/03/23 00:22: WBC 9.1, RBC 4.80, Hgb 14.4, Hct 43.0, MCV 89.6, MCH 30.0, MCHC 33.5, RDW Std Deviation 45.0 H, RDW Coeff of Cheryl 13.8, Plt Count 183, MPV 10.0, Sodium 136, Potassium 3.3 L, Chloride 105, Carbon Dioxide 22.0, Anion Gap 9, BUN28 H, Creatinine 1.95 H, Estim Creat Clear Calc 37.44, Est GFR (MDRD) Af Amer 44L, Est GFR (MDRD) Non-Af 37 L, BUN/Creatinine Ratio 14.4, Glucose 137 H, Calcium9.5 Imagaing Radiology Impression Brain CT 08/03/23 00:07 IMPRESSION: No acute intracranial finding. Electronically Signed: Manoj Dominguez MD at 1:23 EST , Cervical Spine CT 08/03/23 00:07 IMPRESSION: No evidence of acute cervical spinal fracture or spondylolisthesis. Mild to moderate degenerative change throughout the cervical spine. Electronically Signed: Manoj Domniguez MD at 1:27 EST , Lumbar Spine CT 08/03/23 00:07 IMPRESSION: No evidence of acute lumbar spinal fracture or spondylolisthesis. Mild to moderate degenerative change throughout the lumbar spine. Electronically Signed: Manoj Dominguez MD at 1:21 EST , Chest X-Ray 08/03/23 01:00 IMPRESSION: No acute pulmonary finding. Electronically Signed: Manoj Dominguez MD at 1:27 EST , Femur X-Ray 08/03/23 01:00 IMPRESSION: Left femoral neck fracture with varus angulation. Electronically Signed: Manoj Dominguez MD at 1:29 EST , Pelvis X-Ray 08/03/23 01:00 IMPRESSION: Left femoral neck fracture. Electronically Signed: Manoj Dominguez MD at 1:33 EST , Assessment & Plan Assessment/Plan (1) Fracture of femoral neck, left: QUALIFIERS: Encounter type: initial encounter Fracture type: closed Qualified Code(s): S72.002A - Fracture of unspecified part of neck of left femur, initial encounter for closed fracture (2) Hypokalemia: (3) Essential hypertension: (4) ARCHANA (acute kidney injury): (5) Obesity (BMI 30.0-34.9): PLAN: Plan 1. Left femoral neck fracture after mechanical fall - Admit to general medical floor. Apply 5 pounds of Messina's traction with patient to be on bedrest until ORIF can be completed. Give Tylenol as needed for mild to moderate level 1-5 out of 10 pain or fever. Give morphine IV as needed for severe 6-10 out of 10 pain. Finally, we will consult the orthopedic surgeon on-call to see this patient on rounds in the a.m. for further recommendations with help appreciated in advance. 2. Hypokalemia of 3.3 mmol/L present on admission complicating #1 - Give supplemental potassium chloride and then recheck BMP in the a.m. to ensure improvement. 3. Suspected acute kidney injury with elevated serum creatinine of 1.95 mg/dL and BUN of 28 mg/dL present on admission compounding #1 & #2 - Give volume resuscitation and recheck BMP in the a.m. to confirm suspicion 4. Essential hypertension - Hold lisinopril/HCTZ for now in light of #3. Give IV hydralazine as needed for systolic blood pressure greater than or equal to 160 mmHg. 5. Tobacco abuse - Tobacco cessation will be strongly encouraged with nicotine patch offered to control cravings. 6. Obesity; with BMI of 32.6 this admission - Weight loss will be recommended. Check TSH. 7. Recent surgery remove cataract from left eye last week - Stable. 8. DVT prophylaxis - Place RLE SCD and avoid blood thinners preoperatively in cases of traumatic fracture due to increased risk of bleeding complications. Orthopedic team to decide upon postoperative DVT prophylaxis. Total time: Approximately 55 minutes. Charges/Coding Visit Charges Inpatient E&M: 76512 Init Hosp L2 08/03/23 0313 <Electronically signed by Adis Guzman DO> Cosigner Signature (if applicable): CC: Dr. Adis Guzman DO; No Primary Care Physician~ Signed [facility] Work Phone: Hospital Discharge instructionsAmbulatory Orders* Urology Location: None Selected [facility] Work Phone: Chief Complaint and Reason for Visit Chief Complaint LEFT HIP FRACTURE AF TER MECHANICAL FALL AND Reason for Visit ARCHANA (acute kidney in jury) Essential hypertension Fracture of femoral neck, left Hypokalemia Obesity (BMI 30.0-34.9) Chief Complaint LEFT HIP FRACTURE AF TER MECHANICAL FALL AND LEFT HIP FRACTURE AFTER MECHANICAL FALL AND Reason for Visit ARCHANA (acute kidney in jury) Essential hypertension Fracture of femoral neck, left Hypokalemia Obesity (BMI 30.0-34.9) Status post hip hemiarthroplasty Chief Complaint LEFT HIP FRACTURE AF TER MECHANICAL FALL AND AM EKG LEFT HIP FRACTURE AFTER MECHANICAL FALL AND EST NEW PT - PPW SENT HIP FX RX HERE Reason for Visit ARCHANA (acute kidney in jury) Fracture of femoral neck, left Hypokalemia Status post hip hemiarthroplasty ARCHANA (acute kidney injury) Encounter for wellness examination S/P total left hip arthroplasty Screening for colon cancer Screening for lung cancer Tobacco use Hypertension Chief Complaint LEFT HIP FRACTURE AF TER MECHANICAL FALL AND AM EKG LEFT HIP FRACTURE AFTER MECHANICAL FALL AND EST NEW PT - PPW SENT HIP FX RX HERE TOBACCO ABUSE CYST OF KIDNEY Reason for Visit ARCHANA (acute kidney in jury) Fracture of femoral neck, left Hypokalemia Status post hip hemiarthroplasty ARCHANA (acute kidney injury) Encounter for wellness examination S/P total left hip arthroplasty Screening for colon cancer Screening for lung cancer Tobacco use Hypertension Chief Complaint LEFT HIP FRACTURE AF TER MECHANICAL FALL AND AM EKG LEFT HIP FRACTURE AFTER MECHANICAL FALL AND EST NEW PT - PPW SENT HIP FX RX HERE TOBACCO ABUSE CYST OF KIDNEY 3 M FU Reason for Visit ARCHANA (acute kidney in jury) Fracture of femoral neck, left Hypokalemia Status post hip hemiarthroplasty ARCHANA (acute kidney injury) Encounter for wellness examination S/P total left hip arthroplasty Screening for colon cancer Screening for lung cancer Tobacco use Hypertension At risk for cardiovascular event Elevated PSA Hypertriglyceridemia Nephrolithiasis Prediabetes Renal cyst Tobacco use CKD (chronic kidney disease) stage 3, GFR 30-59 ml/min Hypertension Chief Complaint Admit Date MED FOLLOW UP February 13, 2025 1:10p m Reason for Visit Admit Date Renal cyst February 13, 2025 1:10p m Screening for colon cancer February 13 1:10pm Swelling of lower leg February 13, 2025 1:1 0pm Tobacco dependence February 13, 2025 1:10p m CKD (chronic kidney disease) stage 3, GF R 30-59 ml/min February 13, 2025 1:10pm Hypertension February 13, 2025 1:10p m Chief Complaint Admit Date MED FOLLOW UP February 13, 2025 1:10p m 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 February 13, 2025 3:06pm Chief Complaint Admit Date MED FOLLOW UP February 13, 2025 1:10p m 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 February 13, 2025 3:06pm Deep vein thrombosis February 26, 2025 11: 40am Reason for Visit Admit Date Renal cyst February 13, 2025 1:10p m Screening for colon cancer February 13 1:10pm Swelling of lower leg February 13, 2025 1:1 0pm Tobacco dependence February 13, 2025 1:10p m CKD (chronic kidney disease) stage 3, GF R 30-59 ml/min February 13, 2025 1:10pm Hypertension February 13, 2025 1:10p m DVT of lower limb, acute February 26, 2025 11:40am Chief Complaint Admit Date MED FOLLOW UP February 13, 2025 1:10p m 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 February 13, 2025 3:06pm Deep vein thrombosis February 26, 2025 11: 40am F/U LT LEG SWELLING, DVT April 30, 2025 7:35am Advance Directives No Advanced Directives Records Found Advance Directive Response Recorded Date/ Time Name of Medical Power of Batcher Operator garrett leon August 03, 2023 12:08am Living Will Yes August 03, 2 023 12:08am Power of Batcher Operator Yes August 03, 2023 12:08am Advance Directive Response Recorded Date/ Time Name of Medical Power of Batcher Operator garrett leon August 03, 2023 3:50am Living Will Yes August 03, 2 023 3:50am Power of Batcher Operator Yes August 03, 2023 3:50am Advance Directive Response Recorded Date/ Time Name of Medical Power of Batcher Operator garrett leon August 03, 2023 4:50am Living Will Yes August 03, 2 023 4:50am Power of Batcher Operator Yes August 03, 2023 4:50am Summary Purpose Family History No Family History Records FoundNo Family History Records FoundNo Family History Records Found Additional Source Comments Source Comments (unrecognize d section and content) In the event this informatio n is protected by the Federal Confidentiality of Alcohol and Drug Abuse Patient Records regulations: The Federal rules restrict any use of the information to criminally investigate or prosecute any alcohol or drug abuse patient.[facility] the event this information is protected by the Federal Confidentiality of Alcohol and Drug Abuse Patient Records regulations: The Federal rules restrict any use of the information to criminally investigate or prosecute any alcohol or drug abuse patient.[facility] HospitalIn the event this information is protected by the Federal Confidentiality of Alcohol and Drug Abuse Patient Records regulations: The Federal rules restrict any use of the information to criminally investigate or prosecute any alcohol or drug abuse patient.[facility] the event this information is protected by the Federal Confidentiality of Alcohol and Drug Abuse Patient Records regulations: The Federal rules restrict any use of the information to criminally investigate or prosecute any alcohol or drug abuse patient.[facility] HospitalIn the event this information is protected by the Federal Confidentiality of Alcohol and Drug Abuse Patient Records regulations: The Federal rules restrict any use of the information to criminally investigate or prosecute any alcohol or drug abuse patient.[facility] HospitalIn the event this information is protected by the Federal Confidentiality of Alcohol and Drug Abuse Patient Records regulations: The Federal rules restrict any use of the information to criminally investigate or prosecute any alcohol or drug abuse patient.[facility] HospitalIn the event this information is protected by the Federal Confidentiality of Alcohol and Drug Abuse Patient Records regulations: The Federal rules restrict any use of the information to criminally investigate or prosecute any alcohol or drug abuse patient.[facility] HospitalIn the event this information is protected by the Federal Confidentiality of Alcohol and Drug Abuse Patient Records regulations: The Federal rules restrict any use of the information to criminally investigate or prosecute any alcohol or drug abuse patient.[facility] HospitalIn the event this information is protected by the Federal Confidentiality of Alcohol and Drug Abuse Patient Records regulations: The Federal rules restrict any use of the information to criminally investigate or prosecute any alcohol or drug abuse patient.[facility] HospitalIn the event this information is protected by the Federal Confidentiality of Alcohol and Drug Abuse Patient Records regulations: The Federal rules restrict any use of the information to criminally investigate or prosecute any alcohol or drug abuse patient.[facility] HospitalIn the event this information is protected by the Federal Confidentiality of Alcohol and Drug Abuse Patient Records regulations: The Federal rules restrict any use of the information to criminally investigate or prosecute any alcohol or drug abuse patient.[facility] HospitalIn the event this information is protected by the Federal Confidentiality of Alcohol and Drug Abuse Patient Records regulations: The Federal rules restrict any use of the information to criminally investigate or prosecute any alcohol or drug abuse patient.[facility] HospitalIn the event this information is protected by the Federal Confidentiality of Alcohol and Drug Abuse Patient Records regulations: The Federal rules restrict any use of the information to criminally investigate or prosecute any alcohol or drug abuse patient.[facility] Reason for Visit (unrecogniz ed section and content) Reason Comments Medication Problem Reason Comments Follow Up Blood pressure Reason Onset Date Comments Refill Request 06/01/2023 Reason Comments Opened In Error Reason Comments pre op clearance form [facility] Reason Comments Refill Request Reason Comments Pre-Op Exam Reason Onset Date Comments Population Health Navigation Outreach 11/01/2023 [employer] care gaps Reason Comments Appointment Care Teams (unrecognized sec tion and content) Regulatory Compliance Officer Relationship Specialty Start Date End Date Shahana Barber MD [address] [facility] [place] [address] PCP - General Family Medicine 05/08/23 Regulatory Compliance Officer Relationship Specialty Start Date End Date Shahana Barber MD [address] [facility] [address] [place], [place] [id number] PCP - General Family Medicine 05/08/23 Regulatory Compliance Officer Relationship Specialty Start Date End Date Shahana Barber MD [address] [facility] [address] [place], [place] [id number] PCP - General Family Medicine 05/08/23 Regulatory Compliance Officer Relationship Specialty Start Date End Date Shahana Barber MD [address] [facility] [address] [place], [place] [id number] PCP - General Family Medicine 05/08/23 Team Status: Active Member Role Status Dates No Primary Care Physician Family Provider Active No Primary Care Physician Primary Care Provider Active Team Status: Active Member Role Status Dates No Primary Care Physician Primary Care Provider Active Dr. Tyrell Beltran , DO Emergency Provider Active Dr. Adis Guzman , DO Admit Provider , Attending Provider, Referring Provider Active Team Status: Active Member Role Status Dates No Primary Care Physician Family Provider Active Dr. Debora Lipscomb MD Primary Care Provider Active Team Status: Active Member Role Status Dates No Primary Care Physician Primary Care Provider Active Dr. Tyrell Beltran , DO Emergency Provider Active Dr. Adis Guzman , DO Admit Provider , Referring Provider, Other Provider Active Dr. Keith Hernandez , DO Attending Provider, Other Provid er Active Dr. Marco Parker , DO Other Provider Active Dr. All Robbins , DO Other Provider Active Dr. Keenan Mars , DO Other Provider Active Dr. Gordon Mackenzie MD Other Provider Active Dr. Deven Mena MD Other Provider Active Dr. Paras Mackenzie , DPM Other Provider Active Jennifer Arthur PA, PA Other Provider Active KEARA More Other Provider Active Cayetano SARAH, PA-C Other Provider Active Sushil Briseno PA, PA-C Other Provider Active Team Status: Inactive Member Role Status Dates Dr. Tyrell Beltran , DO Emergency Provider Active Dr. Adis Guzman , DO Admit Provider , Referring Provider, Other Provider Active Dr. Keith Hernandez , DO Attending Provider Active Dr. Marco Parker , DO Other Provider Active Dr. All Robbins , DO Other Provider Active Dr. Keenan Mars , DO Other Provider Active Dr. Gordon Mackenzie MD Other Provider Active Dr. Deven Mena MD Other Provider Active Dr. Paras Mackenzie , DPM Other Provider Active Jennifer Arthur PA, PA Other Provider Active KEARA More Other Provider Active Ray Eshenaur PA, PA-C Other Provider Active Sushil Briseno PA, PA-C Other Provider Active Dr. Debora Lipscomb MD Primary Care Provider Active Team Status: Inactive Member Role Status Dates No Primary Care Physician Referring Provider Active Gabriela Chin NP-C Attending Provider Active Dr. Debora Lipscomb MD Primary Care Provider Active Team Status: Active Member Role Status Dates No Primary Care Physician Primary Care Provider Active Dr. Tyrell Beltran , DO Emergency Provider Active Dr. Adis Guzman , DO Admit Provider, Other Provid er Active Dr. Keith Hernandez , DO Attending Provider, Other Provid er Active Dr. Marco Parker , DO Other Provider Active Dr. All Robbins , DO Other Provider Active Dr. Keenan Mars , DO Other Provider Active Dr. Gordon Mackenzie MD Other Provider Active Dr. Deven Mena MD Other Provider Active Dr. Paras Mackenzie , DPM Other Provider Active Jennifer Arthur PA, PA Other Provider Active KEARA More Other Provider Active Cayetano Esora PA, PA-C Other Provider Active Sushil Briseno PA, PA-C Other Provider Active Team Status: Active Member Role Status Dates Dr. Debora Lipscomb MD Primary Care Provider Active Dr. Darren Ortiz MD Attending Provider Active Dr. Adis Guzman , DO Referring Provider Active Team Status: Active Member Role Status Dates Dr. Keith Hernandez DO Attending Provider, Referring Pr ovider Active Dr. Debora Lipscomb MD Primary Care Provider Active Team Status: Inactive Member Role Status Dates Dr. Debora Lipscomb MD Primary Care Provider Active Gabriela Chin NP-C Attending Provider, Referring Pro vider Active Regulatory Compliance Officer Relationship Specialty Start Date End Date Shahana Barber MD [address] [facility] [address] [place], [place] [id number] PCP - General Family Medicine 05/08/23 Regulatory Compliance Officer Relationship Specialty Start Date End Date Shahana Barber MD [address] [facility] [address] [place], [place] [id number] PCP - General Family Medicine 05/08/23 Team Status: Inactive Member Role Status Dates Dr. Keith Hernandez DO Attending Provider, Referring Pr ovider Active Dr. Debora Lipscomb MD Primary Care Provider Active Team Status: Inactive Member Role Status Dates Dr. Debora Lipscomb MD Primary Care Provider, Referri ng Provider Active Gabriela Chin , DIRECTOR CAMP-C Attending Provider Active Regulatory Compliance Officer Relationship Specialty Start Date End Date Shahana Barber MD [address] [facility] [address] [place], [place] [id number] PCP - General Family Medicine 05/08/23 Ochoa Freeman APRN.DIRECTOR TRANSPORTATION [address] [facility] [address] [place], [place] [id number] Safety [facility]ion Internal Medicine 07/21/24 Team Status: Active Member Role/Relationship Status Dates No Primary Care Physician Family Provider Active Bishnu SARAH PA Primary Care Provider Active Team Status: Inactive Member Role/Relationship Status Dates Bishnu SARAH PA Primary Care Provider Active Start: February 13, 2025 End: February 13, 2025 Bishnu SARAH PA Attending Provider Active St art: February 13, 2025 End: February 13, 2025 Bishnu SARAH PA Referring Provider Active St art: February 13, 2025 End: February 13, 2025 Team Status: Active Member Role/Relationship Status Dates Bishnu SARAH PA Primary Care Provider Active Team Status: Inactive Member Role/Relationship Status Dates Bishnu Vuong PA, PA Primary Care Provider Active Start: February 13, 2025 End: February 13, 2025 Bishnu Wayt PA, PA Attending Provider Active St art: February 13, 2025 End: February 13, 2025 Bishnu Vuong PA, PA Referring Provider Active St art: February 13, 2025 End: February 13, 2025 Team Status: Active Member Role/Relationship Status Dates Bishnu Vuong PA, PA Primary Care Provider Active Start: February 13, 2025 Dr. Keith Biggs MD Attending Provider Active S tart: February 13, 2025 Team Status: Inactive Member Role/Relationship Status Dates Bishnu Vuong PA, PA Primary Care Provider Active Start: February 26, 2025 End: February 26, 2025 Bishnu Vuong PA, PA Referring Provider Active St art: February 26, 2025 End: February 26, 2025 KEARA Alonso Attending Provider Active Star t: February 26, 2025 End: February 26, 2025 Team Status: Active Member Role/Relationship Status Dates Bishnu Vuong PA, PA Primary care physician Active Team Status: Inactive Member Role/Relationship Status Dates Bishnu Vuong PA, PA Primary care physician Active Start: February 13, 2025 End: February 13, 2025 Bishnu Vuong PA, PA Attending physician Active S tart: February 13, 2025 End: February 13, 2025 Bishnu Vuong PA, PA Referring Provider Active St art: February 13, 2025 End: February 13, 2025 Team Status: Inactive Member Role/Relationship Status Dates Bishnu Vuong PA, PA Primary care physician Active Start: February 13, 2025 End: February 13, 2025 Bishnu Vuong PA, PA Attending physician Active S tart: February 13, 2025 End: February 13, 2025 Bishnu Vuong PA, PA Referring Provider Active St art: February 13, 2025 End: February 13, 2025 Team Status: Active Member Role/Relationship Status Dates Bishnu Vuong PA, PA Primary care physician Active Start: February 13, 2025 Bishnu Vuong PA, PA Referring Provider Active St art: February 13, 2025 Dr. Keith Biggs MD Attending physician Active Start: February 13, 2025 Team Status: Inactive Member Role/Relationship Status Dates Bishnu Vuong PA, PA Primary care physician Active Start: February 26, 2025 End: February 26, 2025 Bishnu Vuong PA, PA Referring Provider Active St art: February 26, 2025 End: February 26, 2025 KEARA Alonso Attending physician Active Sta rt: February 26, 2025 End: February 26, 2025 Team Status: Inactive Member Role/Relationship Status Dates KEARA Merchant Primary care physician Active Start: April 30, 2025 End: April 30, 2025 KEARA Alonso Attending physician Active Sta rt: April 30, 2025 End: April 30, 2025 KEARA Alonso Referring Provider Active Star t: April 30, 2025 End: April 30, 2025 Team Status: Active Member Role/Relationship Status Dates KEARA Merchant Primary care physician Active Start: April 30, 2025 Dr. Keith Biggs MD Attending physician Active Start: April 30, 2025 Goals (unrecognized section and content) Goals may be documented in a n alternate sectionGoals may be documented in an alternate sectionGoals may be documented in an alternate sectionGoals may be documented in an alternate sectionGoals may be documented in an alternate section (unrecognized sect ion and content) No Status Records FoundNo Status Records FoundNo Status Records Found INFORMATION SOURCE (unrecogn ized section and content) DATE CREATED AUTHOR 08/17/2023 [facility] DATE CREATED AUTHOR AUTHOR'S ORGANIZ ATION 08/04/2024 [facility] DATE CREATED AUTHOR AUTHOR'S ORGANIZ ATION 06/21/2025 [facility] FOR RECORDS PERTAINING TO PATIENTS WHO ARE [...] BE BASED ON THE PRIMARY CLINICAL RECORDS. [facility]. provides no warranty or guarantee of the accuracy or completeness of information in this document.
== END | disposition home or self-care (01) ==
LOC: CVS 09:20
PROVIDERS: PCP Physician Assistant; Referring Provider Physician Assistant; Visit Provider Physician Assistant
DX: M79.89 Other specified soft tissue disorders (principal); I82.409 Acute embolism and thrombosis of unspecified deep veins of unspecified lower extremity
CPT/HCPCS: 93971